=== PATIENT | female | born 1950 | race Caucasian/White ===

== ENCOUNTER 2017-08-10 10:08 | Emergency (ER) | payer MEDICARE, BC ==
[2017-08-10] MEDS ORDERED: Sodium Chloride 0.9% 10 ML Syringe FLUSH PRN (10:45)
[2017-08-10] MEDS ORDERED: Acetaminophen/HYDROcodone 325-10 MG Tab PO ONE (10:46)
[2017-08-10] MEDS ORDERED: diphenhydrAMINE 50 MG/ML SDV IVPUSH ONE (10:46)
[2017-08-10 11:16] VITALS: BP 145/69
--- NOTE | 2017-08-10 11:52 | EDM.PDOC ---
Scribed by Arlene Chen 08/10/17 1152 for Frederic Stack MD ED HPI GENERAL MEDICAL PROBLEM - General Chief Complaint: Lower Extremity Injury/Pain Stated Complaint: [id number] FOOT SWOLLEN BLISTER ON TOES Time Seen by Provider: 08/10/17 10:35 Source of Information: Reports: Patient, RN, RN Notes Reviewed History Limitations: Reports: No Limitations - History of Present Illness INITIAL COMMENTS - FREE TEXT/NARRATIVE: Patient presents from home by private vehicle with complaint of left foot pain. Patient states that she noticed a blister between the 4th and 5th toes yesterday. She is not aware of any rubbing of her shoe or any other cause for the blister. Today she noticed a red streak going from the lower leg just proximal to the ankle. Denies any fever or chills. Duration: Getting Worse Location: Reports: Lower Extremity, Left Quality: Reports: Ache Severity: Moderate Improves with: Reports: None Worsens with: Reports: None Associated Symptoms: Reports: No Other Symptoms Left Feet Pain Score (Numeric/FACES): 10 - Related Data Allergies Allergy/AdvReac Type Severity Reaction Status Date / Time propoxyphene Allergy Cannot Verified 11/30/15 01:52 Remember Home Meds: Home Meds traMADol [Ultram] 50 mg PO Q6H PRN 10/27/14 [History] Ibuprofen 600 mg PO ONETIME 11/30/15 [History] Cyanocobalamin (Vitamin B-12) [Cyanocobalamin Injection] 1 ml IM ASDIRECTED [History] Gabapentin [Neurontin] 100 mg PO TID 03/19/16 [History] Mupirocin 22 gm TOP BID 03/19/16 [History] Magnesium Chloride [Mag-64] 64 mg PO TIDMEALS #90 tab.er 03/24/16 [Rx] metroNIDAZOLE [Flagyl] 500 mg PO Q8H #30 tablet 03/24/16 [Rx] Past Medical History Respiratory History: Reports: TB Musculoskeletal History: Reports: Osteoarthritis, Osteoporosis, RA Endocrine/Metabolic History: Reports: Osteoporosis Dermatologic History: Reports: Other (See Below) Other Dermatologic History: fungal infection on feet. Small nickel size ulcer beside left outer ankle. Small blister to 4th toe on left foot. - Past Surgical History Musculoskeletal Surgical History: Reports: Shoulder Replacement, Shoulder Surgery, Other (See Below) Social & Family History - Family History Family Medical History: Noncontributory - Living Situation & Occupation Living situation: Reports: , with Spouse Occupation: Retired Review of Systems - Review of Systems Review Of Systems: ROS reveals no pertinent complaints other than HPI. ED EXAM, GENERAL - Physical Exam Exam: See Below Exam Limited By: No Limitations General Appearance: Alert, WD/WN, No Apparent Distress Head: Atraumatic, Normocephalic Respiratory/Chest: No Respiratory Distress Cardiovascular: Regular Rate, Rhythm, Tachycardia Extremities: Joint Swelling (chronic diffuse joint swelling and deformity consistent with RA), Other (Left plantar intradigital web space 4 and 5 with a 2.5cm raised purulent slightly purplish border with surrounding erythema and acute tenderness.) Neurological: Alert, No Motor/Sensory Deficits ED TRAUMA EXTREMITY PROCEDURES - I&D Site: Left plantar forefoot Skin Prep: Chlorhexidine (Hibiciens), Saline Local Anesthesia: Lidocaine: Other (none) Area Incised With: Scissors, Needle Drainage: Purulent, Moderate Amount Probed to Break Up Loculations: Yes Packed With: None Sterile Dressinx4(s) Complications: No Course - Vital Signs Last Recorded V/S: Last Vital Signs Temp 36.8 C 08/10/17 11:16 Pulse 96 08/10/17 11:16 Resp 17 08/10/17 11:16 BP 145/69 H 08/10/17 11:16 Pulse Ox 96 08/10/17 11:16 - Orders/Labs/Meds Orders: Active Orders 24 hr Category Date Time Status Peripheral IV Care [RC] . DIRECTED Care 08/10/17 10:46 Active CULTURE BLOOD [BC] Stat Lab 08/10/17 11:01 Received CULTURE WOUND + SMEAR [RM] Stat Lab 08/10/17 10:43 Results Sodium Chloride 0.9% [Saline Flush] Med 08/10/17 10:45 Active 10 ml FLUSH ASDIRECTED PRN Vancomycin 750 mg Med 08/10/17 10:47 Active Sodium Chloride 0.9% [Normal Saline] 100 ml IV ONETIME Blood Culture x2 Reflex Set [OM.PC] Stat Oth 08/10/17 10:45 Ordered Peripheral IV Insertion Adult [OM.PC] Stat Oth 08/10/17 10:45 Ordered Medication Orders Vancomycin HCl 750 mg/ Sodium (Chloride) 100 mls @ 100 mls/hr IV ONETIME ONE Stop: 08/10/17 11:46 Last Admin: 08/10/17 11:13 Dose: 100 mls/hr Sodium Chloride (Saline Flush) 10 ml FLUSH ASDIRECTED PRN PRN Reason: Keep Vein Open Last Admin: 08/10/17 10:53 Dose: 10 ml Labs: Laboratory Tests 08/10/17 08/10/17 Range/Units 11:01 11:01 WBC 9.0 (5.0-10.0) 10^3/uL RBC 3.68 L (4.2-5.4) 10^6/uL Hgb 8.7 L (12.0-16.0) g/dL Hct 27.3 L (37.0-47.0) % MCV 74.2 L D (80-100) fL MCH 23.6 L (27.0-34.0) pg MCHC 31.9 L (33.0-35.0) g/dL Plt Count 509 H D (150-450) 10^3/uL Neut % (Auto) 84.4 H (42.2-75.2) % Lymph % (Auto) 10.1 L (20.5-50.1) % [place] % (Auto) 5.2 (2-8) % Eos % (Auto) 0.0 L (1.0-3.0) % Baso % (Auto) 0.3 (0.0-1.0) % Sodium 130 L (135-145) mmol/L Potassium 4.3 (3.6-5.0) mmol/L Chloride 97 L (101-111) mmol/L Carbon Dioxide 26.0 (21.0-31.0) mmol/L Anion Gap 11.3 BUN 19 H (7-18) mg/dL Creatinine 1.1 (0.6-1.3) mg/dL Est Cr Clr Drug Dosing 35.16 mL/min Estimated GFR (MDRD) 49 BUN/Creatinine Ratio 17.27 Glucose 90 (74-105) mg/dL Calcium 8.8 (8.4-10.2) mg/dl Total Bilirubin 0.5 (0.2-1.0) mg/dL AST 45 H (10-42) IU/L ALT 36 (10-60) IU/L Alkaline Phosphatase 359 H (42-121) IU/L Total Protein 7.8 (6.7-8.2) g/dl Albumin 3.4 (3.2-5.5) g/dl Globulin 4.4 Albumin/Globulin Ratio 0.77 Meds: Medications Generic Name Dose Route Start Last Admin Trade Name Freq PRN Reason Stop Dose Admin Vancomycin HCl 750 mg/ Sodium 100 mls @ 100 mls/hr 08/10/17 10:47 08/10/17 11 :13 Chloride IV 08/10/17 11:46 100 mls/hr ONETIME ONE Administration Sodium Chloride 10 ml 08/10/17 10:45 08/10/17 10:53 Saline Flush FLUSH 10 ml ASDIRECTED PRN Administration Keep Vein Open Discontinued Medications Generic Name Dose Route Start Last Admin Trade Name Freq PRN Reason Stop Dose Admin Hydrocodone Bitart/Acetaminophen 1 tab 08/10/17 10:46 08/10/17 10:58 [place] 325-10 Mg PO 08/10/17 10:47 1 tab ONETIME ONE Administration Diphenhydramine HCl 25 mg 08/10/17 10:46 08/10/17 10:58 Benadryl IVPUSH 08/10/17 10:47 25 mg ONETIME ONE Administration Departure - Departure Time of Disposition: 11:46 Disposition: Home, Self-Care 01 Condition: Fair Clinical Impression: Infected blister of foot or toe, left, Cellulitis of left foot - Discharge Information Instructions: Cellulitis, Adult, [id number] Forms: ED Department Discharge Additional Instructions: Rx: Cipro 500mg Rx: Clindamycin 300mg Follow up in clinic in 2 to 3 days for recheck. Return to ER if you develop a fever, or are worse at any time. - My Orders Last 24 Hours: My Active Orders 08/10/17 10:43 CULTURE WOUND + SMEAR [RM] Stat 08/10/17 10:45 Sodium Chloride 0.9% [Saline Flush] 10 ml FLUSH ASDIRECTED PRN Blood Culture x2 Reflex Set [OM.PC] Stat Peripheral IV Insertion Adult [OM.PC] Stat 08/10/17 10:46 Peripheral IV Care [RC] . DIRECTED 08/10/17 10:47 Vancomycin 750 mg Sodium Chloride 0.9% [Normal Saline] 100 ml IV ONETIME 08/10/17 11:01 CULTURE BLOOD [BC] Stat - Assessment/Plan Last 24 Hours: My Active Orders 08/10/17 10:43 CULTURE WOUND + SMEAR [RM] Stat 08/10/17 10:45 Sodium Chloride 0.9% [Saline Flush] 10 ml FLUSH ASDIRECTED PRN Blood Culture x2 Reflex Set [OM.PC] Stat Peripheral IV Insertion Adult [OM.PC] Stat 08/10/17 10:46 Peripheral IV Care [RC] . DIRECTED 08/10/17 10:47 Vancomycin 750 mg Sodium Chloride 0.9% [Normal Saline] 100 ml IV ONETIME 08/10/17 11:01 CULTURE BLOOD [BC] Stat I have read and agree with the documentation that has been completed regarding this visit. By signing this record, I attest that the documentation was completed in my physical presence and is an accurate record of the encounter.
[2017-08-10] MEDS ORDERED: Bacitracin Oint 1 GM U/D Packet TOP ONE (12:23)
== END 2017-08-10 12:35 | disposition home or self-care (01) ==
LOC: DL.ED 10:08
DX: L03.116 Cellulitis of left lower limb (principal); M19.90 Unspecified osteoarthritis, unspecified site; Z79.899 Other long term (current) drug therapy; Z88.8 Allergy status to other drugs, medicaments and biological substances
CPT/HCPCS: 10060; 36415; 80053; 85025; 87040; 87070; 87077; 87186; 87205; 96365; 96375; 99283; 99284; A9270; J1200; J3370; J7050

== ENCOUNTER 2017-12-18 03:07 | Emergency (ER) | payer MEDICARE, BC ==
[2017-12-18 03:49] LABS: ANION GAP 9.8; CHLORIDE,CL 105 mmol/L (101-111); SODIUM,NA 136 mmol/L (135-145)
[2017-12-18 03:50] LABS: ACETAMINOPHEN < 10
[2017-12-18 04:21] VITALS: BP 177/70
--- NOTE | 2017-12-18 21:27 | EDM.PDOC ---
ED HPI GENERAL MEDICAL PROBLEM - General Chief Complaint: Neuro Symptoms/Deficits Stated Complaint: AMBULANCE-CONFUSION Time Seen by Provider: 12/18/17 03:10 Source of Information: Reports: EMS, Family History Limitations: Reports: Altered Mental Status - History of Present Illness INITIAL COMMENTS - FREE TEXT/NARRATIVE: ED via [facility] with report of patient confused. Spouse reports patient woke and was confused speech mumbled. Last normal initial report at 8pm to EMS then reported around 11 was last known "normal state. Ems noted bottle of Tramadol 180 filled on 12/09 with only one tablet remaining. Spouse reports use is not very often and is unsure why so many would be missing. Questioned possible ETOH use or other substances, Spouse stated has not drank for many years. Patient alert on arrival Oriented to person, place. Speech initially clear. Difficulty following simple command, Moving extremities. slow processing and vague stare. TX TO ED cart and to radiology for head CT. Onset: Today Treatments HAND DRAWER IN HELPER: Reports: IV/IO, Other (see below) Other Treatments HAND DRAWER IN HELPER: fluids - Related Data Allergies Allergy/AdvReac Type Severity Reaction Status Date / Time propoxyphene Allergy Cannot Verified 11/30/15 01:52 Remember Home Meds: Home Meds traMADol [Ultram] 50 mg PO Q6H PRN 10/27/14 [History] Ibuprofen 600 mg PO ONETIME 11/30/15 [History] Cyanocobalamin (Vitamin B-12) [Cyanocobalamin Injection] 1 ml IM ASDIRECTED [History] Gabapentin [Neurontin] 100 mg PO TID 03/19/16 [History] Mupirocin 22 gm TOP BID 03/19/16 [History] Magnesium Chloride [Mag-64] 64 mg PO TIDMEALS #90 tab.er 03/24/16 [Rx] metroNIDAZOLE [Flagyl] 500 mg PO Q8H #30 tablet 03/24/16 [Rx] Past Medical History HEENT History: Reports: Impaired Vision Respiratory History: Reports: TB Musculoskeletal History: Reports: Osteoarthritis, Osteoporosis, RA Endocrine/Metabolic History: Reports: Osteoporosis Dermatologic History: Reports: Other (See Below) Other Dermatologic History: fungal infection on feet. Small nickel size ulcer beside left outer ankle. Small blister to 4th toe on left foot. - Past Surgical History HEENT Surgical History: Reports: Adenoidectomy, Tonsillectomy Musculoskeletal Surgical History: Reports: Shoulder Replacement, Shoulder Surgery, Other (See Below) Social & Family History - Family History Family Medical History: Noncontributory - Tobacco Use Smoking Status *Q: Unknown Ever Smoked - Caffeine Use Caffeine Use: Reports: Coffee - Recreational Drug Use Recreational Drug Use: No - Living Situation & Occupation Living situation: Reports: , with Spouse Occupation: Retired ED ROS GENERAL - Review of Systems Review Of Systems: ROS reveals no pertinent complaints other than HPI. ED EXAM, NEURO - Physical Exam Exam: See Below Exam Limited By: Altered Mental Status General Appearance: Thin, Other (Alternating lert, confused periods with drowsy state arousable tith tactile stimuli) Eye Exam: Bilateral Eye: EOMI (conjugate gaze intact slow tracking no nystagmus) , PERRL (3-4 sluggish) Ears: Normal External Exam, Normal TMs Nose: Normal Inspection Throat/Mouth: Normal Inspection Head Exam: Atraumatic, Normocephalic, Sinus Tenderness Respiratory/Chest: No Respiratory Distress, Lungs Clear, Normal Breath Sounds Cardiovascular: Normal Peripheral Pulses, Regular Rate, Rhythm GI/Abdominal: Normal Bowel Sounds, Soft Neurological: No Motor/Sensory Deficits (left lower drift, sensory appears intact), Other (slow processing, difficulty following simple commands, speech clear at times, ). No: Oriented x 3 Extremities: Normal Range of Motion, No Pedal Edema Psychiatric: Other (agitated and argumentative at times with spuse who reports this as abnormal for her) Skin Exam: Warm, Dry, Intact, Normal Color Course - Vital Signs Last Recorded V/S: Last Vital Signs Temp 98.2 F 12/18/17 03:07 Pulse 70 12/18/17 03:07 Resp 15 12/18/17 03:07 BP 177/70 H 12/18/17 03:07 Pulse Ox 100 12/18/17 03:07 - Orders/Labs/Meds Orders: Active Orders 24 hr Category Date Time Status EKG Documentation Completion [RC] URGENT Care 12/18/17 03:10 Active Glucose [Blood Glucose Check, Bedside] [RC] ONETIME Care 12/18/17 03:51 Active CULTURE BLOOD [BC] Stat Lab 12/18/17 03:23 Results Labs: Laboratory Tests 12/18/17 12/18/17 12/18/17 Range/Units 03:23 03:23 03:23 WBC 7.2 (5.0-10.0) 10^3/uL RBC 4.09 L (4.2-5.4) 10^6/uL Hgb 9.6 L (12.0-16.0) g/dL Hct 30.9 L (37.0-47.0) % MCV 75.6 L (80-100) fL MCH 23.5 L (27.0-34.0) pg MCHC 31.1 L (33.0-35.0) g/dL Plt Count 346 D (150-450) 10^3/uL Neut % (Auto) 82.9 H (42.2-75.2) % Lymph % (Auto) 10.3 L (20.5-50.1) % [place] % (Auto) 6.7 (2-8) % Eos % (Auto) 0.0 L (1.0-3.0) % Baso % (Auto) 0.1 (0.0-1.0) % PT 9.4 (9.0-12.0) SEC INR 0.9 (0.9-1.2) Sodium 136 (135-145) mmol/L Potassium 3.8 (3.6-5.0) mmol/L Chloride 105 (101-111) mmol/L Carbon Dioxide 25.0 (21.0-31.0) mmol/L Anion Gap 9.8 BUN 23 H (7-18) mg/dL Creatinine 1.1 (0.6-1.3) mg/dL Est Cr Clr Drug Dosing TNP Estimated GFR (MDRD) 49 BUN/Creatinine Ratio 20.90 Glucose 112 H (74-105) mg/dL POC Glucose (70-105) mg/dl Calcium 8.7 (8.4-10.2) mg/dl Magnesium 1.8 (1.8-2.5) mg/dL Total Bilirubin 0.5 (0.2-1.0) mg/dL AST 106 H (10-42) IU/L ALT 59 (10-60) IU/L Alkaline Phosphatase 230 H (42-121) IU/L Troponin I 0.02 (0.00-0.02) ng/ml C-Reactive Protein (0.0-1.3) mg/dL Total Protein 7.9 (6.7-8.2) g/dl Albumin 3.8 (3.2-5.5) g/dl Globulin 4.1 Albumin/Globulin Ratio 0.93 TSH, Ultra Sensitive (0.45-5.33) uIu/mL Urine Color (YELLOW) Urine Appearance (CLEAR) Urine pH (5.0-9.0) Ur Specific [place] (1.005-1.030) Urine Protein (NEGATIVE) Urine Glucose (UA) (NEGATIVE) Urine Ketones (NEGATIVE) Urine Occult Blood (NEGATIVE) Urine Nitrite (NEGATIVE) Urine Bilirubin (NEGATIVE) Urine Urobilinogen (0.2-1.0) mg/dL Ur Leukocyte Esterase (NEGATIVE) Urine RBC /HPF Urine WBC (0-5/HPF) /HPF Ur Epithelial Cells /HPF Amorphous Sediment (0/HPF) /HPF Urine Bacteria (0-FEW/HPF) /HPF Urine Mucus /LPF Urine Opiates Screen (NEGATIVE) Ur Oxycodone Screen (NEGATIVE) Urine Methadone Screen (NEGATIVE) Acetaminophen < 10 Ur Barbiturates Screen (NEGATIVE) U Tricyclic Antidepress (NEGATIVE) Ur Phencyclidine Scrn (NEGATIVE) Ur Amphetamine Screen (NEGATIVE) U Methamphetamines Scrn (NEGATIVE) Urine MDMA Screen (NEGATIVE) U Benzodiazepines Scrn (NEGATIVE) Urine Cocaine Screen (NEGATIVE) U Marijuana (THC) Screen (NEGATIVE) Ethyl Alcohol mg/dL 12/18/17 12/18/17 12/18/17 Range/Units 03:23 03:23 03:52 WBC (5.0-10.0) 10^3/uL RBC (4.2-5.4) 10^6/uL Hgb (12.0-16.0) g/dL Hct (37.0-47.0) % MCV (80-100) fL MCH (27.0-34.0) pg MCHC (33.0-35.0) g/dL Plt Count (150-450) 10^3/uL Neut % (Auto) (42.2-75.2) % Lymph % (Auto) (20.5-50.1) % [place] % (Auto) (2-8) % Eos % (Auto) (1.0-3.0) % Baso % (Auto) (0.0-1.0) % PT (9.0-12.0) SEC INR (0.9-1.2) Sodium (135-145) mmol/L Potassium (3.6-5.0) mmol/L Chloride (101-111) mmol/L Carbon Dioxide (21.0-31.0) mmol/L Anion Gap BUN (7-18) mg/dL Creatinine (0.6-1.3) mg/dL Est Cr Clr Drug Dosing Estimated GFR (MDRD) BUN/Creatinine Ratio Glucose (74-105) mg/dL POC Glucose 98 (70-105) mg/dl Calcium (8.4-10.2) mg/dl Magnesium (1.8-2.5) mg/dL Total Bilirubin (0.2-1.0) mg/dL AST (10-42) IU/L ALT (10-60) IU/L Alkaline Phosphatase (42-121) IU/L Troponin I (0.00-0.02) ng/ml C-Reactive Protein 0.7 (0.0-1.3) mg/dL Total Protein (6.7-8.2) g/dl Albumin (3.2-5.5) g/dl Globulin Albumin/Globulin Ratio TSH, Ultra Sensitive 0.62 (0.45-5.33) uIu/mL Urine Color (YELLOW) Urine Appearance (CLEAR) Urine pH (5.0-9.0) Ur Specific [place] (1.005-1.030) Urine Protein (NEGATIVE) Urine Glucose (UA) (NEGATIVE) Urine Ketones (NEGATIVE) Urine Occult Blood (NEGATIVE) Urine Nitrite (NEGATIVE) Urine Bilirubin (NEGATIVE) Urine Urobilinogen (0.2-1.0) mg/dL Ur Leukocyte Esterase (NEGATIVE) Urine RBC /HPF Urine WBC (0-5/HPF) /HPF Ur Epithelial Cells /HPF Amorphous Sediment (0/HPF) /HPF Urine Bacteria (0-FEW/HPF) /HPF Urine Mucus /LPF Urine Opiates Screen (NEGATIVE) Ur Oxycodone Screen (NEGATIVE) Urine Methadone Screen (NEGATIVE) Acetaminophen Ur Barbiturates Screen (NEGATIVE) U Tricyclic Antidepress (NEGATIVE) Ur Phencyclidine Scrn (NEGATIVE) Ur Amphetamine Screen (NEGATIVE) U Methamphetamines Scrn (NEGATIVE) Urine MDMA Screen (NEGATIVE) U Benzodiazepines Scrn (NEGATIVE) Urine Cocaine Screen (NEGATIVE) U Marijuana (THC) Screen (NEGATIVE) Ethyl Alcohol < 5 mg/dL 09/19/18 09/19/18 Range/Units 04:22 04:22 WBC (5.0-10.0) 10^3/uL RBC (4.2-5.4) 10^6/uL Hgb (12.0-16.0) g/dL Hct (37.0-47.0) % MCV (80-100) fL MCH (27.0-34.0) pg MCHC (33.0-35.0) g/dL Plt Count (150-450) 10^3/uL Neut % (Auto) (42.2-75.2) % Lymph % (Auto) (20.5-50.1) % [place] % (Auto) (2-8) % Eos % (Auto) (1.0-3.0) % Baso % (Auto) (0.0-1.0) % PT (9.0-12.0) SEC INR (0.9-1.2) Sodium (135-145) mmol/L Potassium (3.6-5.0) mmol/L Chloride (101-111) mmol/L Carbon Dioxide (21.0-31.0) mmol/L Anion Gap BUN (7-18) mg/dL Creatinine (0.6-1.3) mg/dL Est Cr Clr Drug Dosing Estimated GFR (MDRD) BUN/Creatinine Ratio Glucose (74-105) mg/dL POC Glucose (70-105) mg/dl Calcium (8.4-10.2) mg/dl Magnesium (1.8-2.5) mg/dL Total Bilirubin (0.2-1.0) mg/dL AST (10-42) IU/L ALT (10-60) IU/L Alkaline Phosphatase (42-121) IU/L Troponin I (0.00-0.02) ng/ml C-Reactive Protein (0.0-1.3) mg/dL Total Protein (6.7-8.2) g/dl Albumin (3.2-5.5) g/dl Globulin Albumin/Globulin Ratio TSH, Ultra Sensitive (0.45-5.33) uIu/mL Urine Color Yellow (YELLOW) Urine Appearance Slightly cloudy (CLEAR) Urine pH 7.0 (5.0-9.0) Ur Specific [place] 1.015 (1.005-1.030) Urine Protein Negative (NEGATIVE) Urine Glucose (UA) Negative (NEGATIVE) Urine Ketones Negative (NEGATIVE) Urine Occult Blood Negative (NEGATIVE) Urine Nitrite Negative (NEGATIVE) Urine Bilirubin Negative (NEGATIVE) Urine Urobilinogen 0.2 (0.2-1.0) mg/dL Ur Leukocyte Esterase Negative (NEGATIVE) Urine RBC 0-5 /HPF Urine WBC 0-5 (0-5/HPF) /HPF Ur Epithelial Cells Few /HPF Amorphous Sediment Few (0/HPF) /HPF Urine Bacteria Rare (0-FEW/HPF) /HPF Urine Mucus Few H /LPF Urine Opiates Screen Negative (NEGATIVE) Ur Oxycodone Screen Positive H (NEGATIVE) Urine Methadone Screen Negative (NEGATIVE) Acetaminophen Ur Barbiturates Screen Negative (NEGATIVE) U Tricyclic Antidepress Negative (NEGATIVE) Ur Phencyclidine Scrn Negative (NEGATIVE) Ur Amphetamine Screen Negative (NEGATIVE) U Methamphetamines Scrn Negative (NEGATIVE) Urine MDMA Screen Negative (NEGATIVE) U Benzodiazepines Scrn Negative (NEGATIVE) Urine Cocaine Screen Negative (NEGATIVE) U Marijuana (THC) Screen Negative (NEGATIVE) Ethyl Alcohol mg/dL - Radiology Interpretation Free Text/Narrative:: Name: JUSTYN RIVERS Age: 67Years F Date: 12/18/2017 SSN: -- : [id number] Study: CT HEAD WO Requesting Physician: ESTEE DICKERSON Images: 268 Addl Studies: Provided Clinical History: increased confusion Contrast: Without Contrast Medium: Contrast Amount: Contrast Method: Page 1 of 2 Addendum created by Nubia Downs MD on 12/18/2017 3:35 AM Central Time ([place]) THIS REPORT CONTAINS FINDINGS THAT MAY BE CRITICAL TO PATIENT CARE. The findings were verbally communicated via telephone conference with ESTEE DICKERSON at 3:35 AM CDT on 12/18/2017. The findings were acknowledged and understood. Initial Report created on 12/18/2017 3:33 AM Central Time ([place]) EXAM: CT Head Without Intravenous Contrast CLINICAL HISTORY: The patient is a 67 years female; Signs and symptoms; Altered mental status/ memory loss; Confusion or disorientation; Additional info: Increased confusion TECHNIQUE: Axial computed tomography images of the head/brain without intravenous contrast. All CT scans at this facility use at least one of these dose optimization techniques: automated exposure control; mA and/or kV adjustment per patient size (includes targeted exams where dose is matched to clinical indication); or iterative reconstruction. Coronal and sagittal reformatted images were created and reviewed. COMPARISON: No relevant prior studies available. FINDINGS: BRAIN: Low attenuation within the LEFT occipital lobe (image 14, series 2). Generalized cerebral atrophy with associated prominence of the gyral sulci. Periventricular, subcortical white matter hypodensities consistent with small vessel ischemic disease. No hemorrhage. VENTRICLES: Unremarkable. No ventriculomegaly. JUSTYN RIVERS | Final Radiology Report CONFIDENTIALITY STATEMENT This report is intended only for use by the referring physician, and only in accordance with law. If you received this in error, call [phone]. Page 2 of 2 BONES/JOINTS: Unremarkable. No acute fracture. SOFT TISSUES: Unremarkable. SINUSES: Unremarkable as visualized. No acute sinusitis. MASTOID AIR CELLS: Unremarkable as visualized. No mastoid effusion. IMPRESSION: Low attenuation within the LEFT occipital lobe. Finding could represent artifact versus subacute infarct. If there is clinical suspicion for stroke or other significant clinical abnormality, further evaluation with MRI using diffusion weighted gradient sequences could be performed. Thank you for allowing us to participate in the care of your patient. Dictated and Authenticated by: Nubia Downs MD 12/18/2017 3:33 AM Central Time ([place]) - Re-Assessments/Exams Free Text/Narrative Re-Assessment/Exam: 12/18/17 23:[address] Tamara Calle accepting of patient in transfer, [place] via [facility] fixed wing. Vitals stable at transfer, Neuro status continued periods of confusion agitation, drowsiness. Motor functing appears intact. Processing slow.. Speech clear at times,. Agitated at time of arrival of flight crew. Medicated by [facility] prior to transport. Departure - Departure Time of Disposition: 04:45 Disposition: DC/Tfer to Acute Hospital 02 Condition: Undetermined Clinical Impression: Altered mental state Qualifiers: Altered mental status type: unspecified Qualified Code(s): R41.82 - Altered mental status, unspecified - Discharge Information *PRESCRIPTION DRUG MONITORING PROGRAM REVIEWED*: No Referrals: PCP,Unobtain [Primary Care Provider] - Forms: ED Department Discharge - My Orders Last 24 Hours: My Active Orders 12/18/17 03:10 EKG Documentation Completion [RC] URGENT 12/18/17 03:23 CULTURE BLOOD [BC] Stat 12/18/17 03:51 Glucose [Blood Glucose Check, Bedside] [RC] ONETIME - Assessment/Plan Last 24 Hours: My Active Orders 12/18/17 03:10 EKG Documentation Completion [RC] URGENT 12/18/17 03:23 CULTURE BLOOD [BC] Stat 12/18/17 03:51 Glucose [Blood Glucose Check, Bedside] [RC] ONETIME
== END 2017-12-18 05:06 ==
LOC: DL.ED 03:07
DX: R41.82 Altered mental status, unspecified (principal)
CPT/HCPCS: 36415; 70450; 80053; 80305-QW; 81001; 82962; 83735; 84443; 84484; 85025; 85610; 86140; 87040; 93005; 93010; 99285; G0480

== ENCOUNTER 2018-11-22 19:23 | Emergency (ER) | payer MEDICARE, BC ==
--- NOTE | 2018-11-22 19:39 | EDM.PDOC ---
ED HPI GENERAL MEDICAL PROBLEM - General Chief Complaint: Neurological Problem Stated Complaint: AMBULANCE, CRACKED TAILBONE Time Seen by Provider: 11/22/18 19:34 Source of Information: Reports: Patient, Family History Limitations: Reports: Altered Mental Status - History of Present Illness INITIAL COMMENTS - FREE TEXT/NARRATIVE: pt confused doesn't know why she is here, otherwise only answers "ok" to questions. spouse states tried to get into PMD for MRI but given schedule for next week. states pt been c/o tailbone pain and meds given from last visit are gone and hadn't really helped her much. also pt seem to be more confused at about noon time, not wanting to eat did drink something. denies pt being incontinent of urine/stools. - Related Data Allergies Allergy/AdvReac Type Severity Reaction Status Date / Time propoxyphene Allergy Cannot Verified 11/15/18 18:56 Remember Home Meds: Home Meds traMADol [Ultram] 50 mg PO Q6H PRN 10/27/14 [History] Ibuprofen 600 mg PO ONETIME 11/30/15 [History] Cyanocobalamin (Vitamin B-12) [Cyanocobalamin Injection] 1 ml IM ASDIRECTED [History] Gabapentin [Neurontin] 100 mg PO TID 03/19/16 [History] Mupirocin 22 gm TOP BID 03/19/16 [History] Magnesium Chloride [Mag-64] 64 mg PO TIDMEALS #90 tab.er 03/24/16 [Rx] metroNIDAZOLE [Flagyl] 500 mg PO Q8H #30 tablet 03/24/16 [Rx] Past Medical History HEENT History: Reports: Impaired Vision Respiratory History: Reports: TB Musculoskeletal History: Reports: Osteoarthritis, Osteoporosis, RA Endocrine/Metabolic History: Reports: Osteoporosis Dermatologic History: Reports: Other (See Below) Other Dermatologic History: fungal infection on feet. Small nickel size ulcer beside left outer ankle. Small blister to 4th toe on left foot. - Past Surgical History HEENT Surgical History: Reports: Adenoidectomy, Tonsillectomy Musculoskeletal Surgical History: Reports: Shoulder Replacement, Shoulder Surgery, Other (See Below) Other Musculoskeletal Surgeries/Procedures:: right knee replacement on June 30, 2018 Social & Family History - Family History Family Medical History: Noncontributory - Caffeine Use Caffeine Use: Reports: Coffee - Living Situation & Occupation Living situation: Reports: , with Spouse Occupation: Retired ED ROS GENERAL - Review of Systems Review Of Systems: ROS reveals no pertinent complaints other than HPI. - Physical Exam Exam: See Below Exam Limited By: No Limitations General Appearance: Other (confused) Eye Exam: Bilateral Eye: PERRL (pupils ER @ 4mm) Ears: Hearing Grossly Normal Throat/Mouth: Normal Voice, No Airway Compromise Head Exam: Atraumatic Neck: Non-Tender, Full Range of Motion Respiratory/Chest: No Respiratory Distress, No Accessory Muscle Use, Rhonchi. No: Decreased Breath Sounds Cardiovascular: Regular Rate, Rhythm GI/Abdominal: Soft, Non-Tender Neuro Exam (Abbreviated): No Motor/Sensory Deficits, Confused Back Exam: Paraspinal Tenderness, Other (LS region) Psychiatric: Flat Affect Skin Exam: Warm, Dry, Normal Color Course - Vital Signs Last Recorded V/S: Last Vital Signs Temp 37.0 C 11/22/18 21:12 Pulse 82 11/22/18 21:12 Resp 14 11/22/18 21:12 BP 175/84 H 11/22/18 21:12 Pulse Ox 100 11/22/18 21:12 - Orders/Labs/Meds Orders: Active Orders 24 hr Category Date Time Status EKG Documentation Completion [RC] STAT Care 11/22/18 19:26 Active Head wo Cont [CT] Urgent Exams 11/22/18 19:30 Taken Lumbar Spine wo Cont [CT] Urgent Exams 11/22/18 19:33 Taken Labs: Laboratory Tests 11/22/18 11/22/18 11/22/18 Range/Units 19:26 19:30 19:30 WBC 7.4 (5.0-10.0) 10^3/uL RBC 4.11 L (4.2-5.4) 10^6/uL Hgb 10.3 L (12.0-16.0) g/dL Hct 32.7 L (37.0-47.0) % MCV 79.6 L D (80-100) fL MCH 25.1 L (27.0-34.0) pg MCHC 31.5 L (33.0-35.0) g/dL Plt Count 589 H D (150-450) 10^3/uL Neut % (Auto) 74.0 (42.2-75.2) % Lymph % (Auto) 18.4 L (20.5-50.1) % [place]aston % (Auto) 4.2 (2-8) % Eos % (Auto) 3.1 H (1.0-3.0) % Baso % (Auto) 0.3 (0.0-1.0) % Sodium 139 (135-145) mmol/L Potassium 3.8 (3.6-5.0) mmol/L Chloride 107 (101-111) mmol/L Carbon Dioxide 22.0 (21.0-31.0) mmol/L Anion Gap 13.8 BUN 20 H (7-18) mg/dL Creatinine 0.8 (0.6-1.3) mg/dL Est Cr Clr Drug Dosing TNP Estimated GFR (MDRD) > 60 BUN/Creatinine Ratio 25.00 Glucose 95 (74-105) mg/dL POC Glucose 91 (83-110) mg/dl Lactic Acid (0.5-2.2) mmol/L Calcium 9.1 (8.4-10.2) mg/dl Total Bilirubin 0.5 (0.2-1.0) mg/dL AST 50 H (10-42) IU/L ALT 58 (10-60) IU/L Alkaline Phosphatase 455 H (42-121) IU/L Troponin I 0.03 H* (0.00-0.02) ng/ml Total Protein 8.3 H (6.7-8.2) g/dl Albumin 3.5 (3.2-5.5) g/dl Globulin 4.8 Albumin/Globulin Ratio 0.73 Urine Color (YELLOW) Urine Appearance (CLEAR) Urine pH (5.0-9.0) Ur Specific [place] (1.005-1.030) Urine Protein (NEGATIVE) Urine Glucose (UA) (NEGATIVE) Urine Ketones (NEGATIVE) Urine Occult Blood (NEGATIVE) Urine Nitrite (NEGATIVE) Urine Bilirubin (NEGATIVE) Urine Urobilinogen (0.2-1.0) mg/dL Ur Leukocyte Esterase (NEGATIVE) Urine RBC /HPF Urine WBC (0-5/HPF) /HPF Ur Epithelial Cells (NOT SEEN) /HPF Urine Bacteria (0-FEW/HPF) /HPF Urine Opiates Screen (NEGATIVE) Ur Oxycodone Screen (NEGATIVE) Urine Methadone Screen (NEGATIVE) Ur Barbiturates Screen (NEGATIVE) U Tricyclic Antidepress (NEGATIVE) Ur Phencyclidine Scrn (NEGATIVE) Ur Amphetamine Screen (NEGATIVE) U Methamphetamines Scrn (NEGATIVE) Urine MDMA Screen (NEGATIVE) U Benzodiazepines Scrn (NEGATIVE) Urine Cocaine Screen (NEGATIVE) U Marijuana (THC) Screen (NEGATIVE) Ethyl Alcohol mg/dL 11/22/18 11/22/18 11/22/18 Range/Units 19:30 19:30 19:36 WBC (5.0-10.0) 10^3/uL RBC (4.2-5.4) 10^6/uL Hgb (12.0-16.0) g/dL Hct (37.0-47.0) % MCV (80-100) fL MCH (27.0-34.0) pg MCHC (33.0-35.0) g/dL Plt Count (150-450) 10^3/uL Neut % (Auto) (42.2-75.2) % Lymph % (Auto) (20.5-50.1) % [place]aston % (Auto) (2-8) % Eos % (Auto) (1.0-3.0) % Baso % (Auto) (0.0-1.0) % Sodium (135-145) mmol/L Potassium (3.6-5.0) mmol/L Chloride (101-111) mmol/L Carbon Dioxide (21.0-31.0) mmol/L Anion Gap BUN (7-18) mg/dL Creatinine (0.6-1.3) mg/dL Est Cr Clr Drug Dosing Estimated GFR (MDRD) BUN/Creatinine Ratio Glucose (74-105) mg/dL POC Glucose (83-110) mg/dl Lactic Acid 1.0 (0.5-2.2) mmol/L Calcium (8.4-10.2) mg/dl Total Bilirubin (0.2-1.0) mg/dL AST (10-42) IU/L ALT (10-60) IU/L Alkaline Phosphatase (42-121) IU/L Troponin I (0.00-0.02) ng/ml Total Protein (6.7-8.2) g/dl Albumin (3.2-5.5) g/dl Globulin Albumin/Globulin Ratio Urine Color Yellow (YELLOW) Urine Appearance Clear (CLEAR) Urine pH 7.0 (5.0-9.0) Ur Specific [place] 1.015 (1.005-1.030) Urine Protein Trace H (NEGATIVE) Urine Glucose (UA) Negative (NEGATIVE) Urine Ketones Negative (NEGATIVE) Urine Occult Blood Trace-intact H (NEGATIVE) Urine Nitrite Negative (NEGATIVE) Urine Bilirubin Negative (NEGATIVE) Urine Urobilinogen 0.2 (0.2-1.0) mg/dL Ur Leukocyte Esterase Negative (NEGATIVE) Urine RBC 0-5 /HPF Urine WBC 0-5 (0-5/HPF) /HPF Ur Epithelial Cells Few (NOT SEEN) /HPF Urine Bacteria Rare (0-FEW/HPF) /HPF Urine Opiates Screen (NEGATIVE) Ur Oxycodone Screen (NEGATIVE) Urine Methadone Screen (NEGATIVE) Ur Barbiturates Screen (NEGATIVE) U Tricyclic Antidepress (NEGATIVE) Ur Phencyclidine Scrn (NEGATIVE) Ur Amphetamine Screen (NEGATIVE) U Methamphetamines Scrn (NEGATIVE) Urine MDMA Screen (NEGATIVE) U Benzodiazepines Scrn (NEGATIVE) Urine Cocaine Screen (NEGATIVE) U Marijuana (THC) Screen (NEGATIVE) Ethyl Alcohol < 5 mg/dL 11/22/18 Range/Units 19:36 WBC (5.0-10.0) 10^3/uL RBC (4.2-5.4) 10^6/uL Hgb (12.0-16.0) g/dL Hct (37.0-47.0) % MCV (80-100) fL MCH (27.0-34.0) pg MCHC (33.0-35.0) g/dL Plt Count (150-450) 10^3/uL Neut % (Auto) (42.2-75.2) % Lymph % (Auto) (20.5-50.1) % Gaston % (Auto) (2-8) % Eos % (Auto) (1.0-3.0) % Baso % (Auto) (0.0-1.0) % Sodium (135-145) mmol/L Potassium (3.6-5.0) mmol/L Chloride (101-111) mmol/L Carbon Dioxide (21.0-31.0) mmol/L Anion Gap BUN (7-18) mg/dL Creatinine (0.6-1.3) mg/dL Est Cr Clr Drug Dosing Estimated GFR (MDRD) BUN/Creatinine Ratio Glucose (74-105) mg/dL POC Glucose (83-110) mg/dl Lactic Acid (0.5-2.2) mmol/L Calcium (8.4-10.2) mg/dl Total Bilirubin (0.2-1.0) mg/dL AST (10-42) IU/L ALT (10-60) IU/L Alkaline Phosphatase (42-121) IU/L Troponin I (0.00-0.02) ng/ml Total Protein (6.7-8.2) g/dl Albumin (3.2-5.5) g/dl Globulin Albumin/Globulin Ratio Urine Color (YELLOW) Urine Appearance (CLEAR) Urine pH (5.0-9.0) Ur Specific [place] (1.005-1.030) Urine Protein (NEGATIVE) Urine Glucose (UA) (NEGATIVE) Urine Ketones (NEGATIVE) Urine Occult Blood (NEGATIVE) Urine Nitrite (NEGATIVE) Urine Bilirubin (NEGATIVE) Urine Urobilinogen (0.2-1.0) mg/dL Ur Leukocyte Esterase (NEGATIVE) Urine RBC /HPF Urine WBC (0-5/HPF) /HPF Ur Epithelial Cells (NOT SEEN) /HPF Urine Bacteria (0-FEW/HPF) /HPF Urine Opiates Screen Negative (NEGATIVE) Ur Oxycodone Screen Negative (NEGATIVE) Urine Methadone Screen Negative (NEGATIVE) Ur Barbiturates Screen Negative (NEGATIVE) U Tricyclic Antidepress Negative (NEGATIVE) Ur Phencyclidine Scrn Negative (NEGATIVE) Ur Amphetamine Screen Negative (NEGATIVE) U Methamphetamines Scrn Negative (NEGATIVE) Urine MDMA Screen Negative (NEGATIVE) U Benzodiazepines Scrn Negative (NEGATIVE) Urine Cocaine Screen Negative (NEGATIVE) U Marijuana (THC) Screen Negative (NEGATIVE) Ethyl Alcohol mg/dL - Re-Assessments/Exams Free Text/Narrative Re-Assessment/Exam: 11/22/18 21:[address] Murry @ who kindly accepted pt. Departure - Departure Time of Disposition: 21:18 Disposition: DC/Tfer to Acute Hospital 02 Condition: Fair Clinical Impression: Elevated troponin, Degenerative lumbar spinal stenosis Altered mental state Qualifiers: Altered mental status type: unspecified Qualified Code(s): R41.82 - Altered mental status, unspecified Subluxation of coccyx Qualifiers: Encounter type: subsequent encounter Qualified Code(s): S33.2XXD - Dislocation of sacroiliac and sacrococcygeal joint, subsequent encounter - Discharge Information Forms: Interfacility Transfer EMTALA - My Orders Last 24 Hours: My Active Orders 11/22/18 19:26 EKG Documentation Completion [RC] STAT 11/22/18 19:30 Head wo Cont [CT] Urgent 11/22/18 19:33 Lumbar Spine wo Cont [CT] Urgent - Assessment/Plan Last 24 Hours: My Active Orders 11/22/18 19:26 EKG Documentation Completion [RC] STAT 11/22/18 19:30 Head wo Cont [CT] Urgent 11/22/18 19:33 Lumbar Spine wo Cont [CT] Urgent
[2018-11-22 20:00] LABS: ANION GAP 13.8; CHLORIDE,CL 107 mmol/L (101-111); SODIUM,NA 139 mmol/L (135-145)
[2018-11-22 21:13] VITALS: BP 175/84
== END 2018-11-22 22:02 ==
LOC: DL.ED 19:23
DX: S33.2XXD Dislocation of sacroiliac and sacrococcygeal joint, subsequent encounter (principal); M48.061 Spinal stenosis, lumbar region without neurogenic claudication; R41.82 Altered mental status, unspecified; R79.89 Other specified abnormal findings of blood chemistry; Z88.8 Allergy status to other drugs, medicaments and biological substances; Z79.899 Other long term (current) drug therapy; X58.XXXD Exposure to other specified factors, subsequent encounter
CPT/HCPCS: 36415; 70450; 72131; 80053; 80305; 81001; 82962; 83605; 84484; 85025; 93005; 99285; G0480

== ENCOUNTER 2020-08-24 12:12 | Emergency (ER) | payer MEDICARE, BC ==
[2020-08-24 12:45] VITALS: BP 177/78; PULSE 92
[2020-08-24] MEDS ORDERED: HYDROmorphone 0.5 MG/0.5 ML Syringe IVPUSH ONE (12:58)
--- NOTE | 2020-08-24 13:22 | EDM.PDOC ---
ED HPI GENERAL MEDICAL PROBLEM - General Chief Complaint: Abdominal Pain Stated Complaint: BAD STOMACH PAINS Time Seen by Provider: 08/24/20 12:50 Source of Information: Reports: Patient History Limitations: Reports: No Limitations - History of Present Illness INITIAL COMMENTS - FREE TEXT/NARRATIVE: This 69 yo female patient reports to the ED with increased abdominal pain. The patient reports she has been working with Dr. Evans due to chronic stomach pain, but today her pain has gotten too much for her to handle. The patient reports she did call Dr. Evans's office, but there were no appointments available until 1330 today. The patient reports her pain is so bad that she could not wait until the appointment. The patient also has a history of chronic lower back pain that she needs to have surgery for. Onset: Today Duration: Constant, Getting Worse Location: Reports: Abdomen Quality: Reports: Ache, Pressure Severity: Severe Improves with: Reports: None Worsens with: Reports: None Context: Reports: Other Associated Symptoms: Reports: No Other Symptoms Bilateral Lower Abdomen Pain Score (Numeric/FACES): 10 - Related Data Allergies Allergy/AdvReac Type Severity Reaction Status Date / Time propoxyphene Allergy Unknown Cannot Verified 08/24/20 12:36 Remember cetirizine Allergy UNKNOWN Verified 08/24/20 12:36 ketorolac [From Toradol] AdvReac Headache Verified 08/24/20 12:36 Home Meds: Home Meds traMADol [Ultram] 50 mg PO Q6H PRN 10/27/14 [History] Ibuprofen 600 mg PO ONETIME 11/30/15 [History] Cyanocobalamin (Vitamin B-12) [Cyanocobalamin Injection] 1 ml IM ASDIRECTED 03/19/16 [History] Gabapentin [Neurontin] 100 mg PO TID 03/19/16 [History] Mupirocin 22 gm TOP BID 03/19/16 [History] Magnesium Chloride [Mag-64] 64 mg PO TIDMEALS #90 tab.er 03/24/16 [Rx] metroNIDAZOLE [Flagyl] 500 mg PO Q8H #30 tablet 03/24/16 [Rx] Past Medical History HEENT History: Reports: Impaired Vision Cardiovascular History: Reports: None Respiratory History: Reports: TB Musculoskeletal History: Reports: Osteoarthritis, Osteoporosis, RA Other Musculoskeletal History: Pt reports history of "crushed vertebrae". Psychiatric History: Reports: None Endocrine/Metabolic History: Reports: Osteoporosis Hematologic History: Reports: None Immunologic History: Reports: None Oncologic (Cancer) History: Reports: None Dermatologic History: Reports: Other (See Below) Other Dermatologic History: fungal infection on feet. Small nickel size ulcer beside left outer ankle. Small blister to 4th toe on left foot. - Infectious Disease History Infectious Disease History: Reports: None - Past Surgical History HEENT Surgical History: Reports: Adenoidectomy, Tonsillectomy Musculoskeletal Surgical History: Reports: Shoulder Replacement, Shoulder Surgery, Other (See Below) Other Musculoskeletal Surgeries/Procedures:: right knee replacement on June 30, 2018 Social & Family History - Family History Family Medical History: No Pertinent Family History - Tobacco Use Tobacco Use Status *Q: Current Every Day Tobacco User Years of Tobacco use: 55 Packs/Tins Daily: 1 - Caffeine Use Caffeine Use: Reports: Coffee Other Caffeine Use: Up to "4 pots of coffee" daily. - Recreational Drug Use Recreational Drug Use: No - Living Situation & Occupation Living situation: Reports: , with Spouse Occupation: Retired ED ROS GENERAL - Review of Systems Review Of Systems: Comprehensive ROS is negative, except as noted in HPI. ED EXAM, GI/ABD - Physical Exam Exam: See Below Exam Limited By: No Limitations General Appearance: Alert, WD/WN, Severe Distress, Thin Eyes: Bilateral: Normal Appearance, EOMI Ears: Normal External Exam, Normal Canal, Hearing Grossly Normal, Normal TMs Nose: Normal Inspection, Normal Mucosa, No Blood Throat/Mouth: Normal Inspection, Normal Lips, Normal Teeth, Normal Gums, Normal Oropharynx, Normal Voice, No Airway Compromise Head: Atraumatic, Normocephalic Neck: Normal Inspection, Supple, Non-Tender, Full Range of Motion Respiratory/Chest: No Respiratory Distress, Lungs Clear, Normal Breath Sounds, No Accessory Muscle Use, Chest Non-Tender Cardiovascular: Normal Peripheral Pulses, Regular Rate, Rhythm, No Edema, No Gallop, No JVD, No Murmur, No Rub GI/Abdominal Exam: Normal Bowel Sounds, Rigid, Tender (generalized) (Female) Exam: Deferred Rectal (Female) Exam: Deferred Back Exam: Normal Inspection, Full Range of Motion, NT Extremities: Normal Inspection, Normal Range of Motion, Non-Tender, Normal Capillary Refill, No Pedal Edema Neurological: Alert, Oriented, CN II-XII Intact, Normal Cognition, Abnormal Gait Psychiatric: Normal Affect, Normal Mood Skin Exam: Warm, Dry, Intact, Normal Color, No Rash Lymphatic: No Adenopathy Course - Vital Signs Last Recorded V/S: Last Vital Signs Temp 99.6 F 08/24/20 12:37 Pulse 92 08/24/20 12:37 Resp 20 08/24/20 12:37 BP 177/78 H 08/24/20 12:37 Pulse Ox 100 08/24/20 12:37 - Orders/Labs/Meds Orders: Active Orders 24 hr Category Date Time Status CULTURE BLOOD [BC] Stat Lab 08/24/20 12:35 Results Labs: Laboratory Tests 08/24/20 08/24/20 08/24/20 Range/Units 12:35 12:35 12:35 WBC 7.3 (5.0-10.0) 10^3/uL RBC 3.67 L (4.2-5.4) 10^6/uL Hgb 10.8 L (12.0-16.0) g/dL Hct 33.1 L (37.0-47.0) % MCV 90.2 D (80-100) fL MCH 29.4 (27.0-34.0) pg MCHC 32.6 L (33.0-35.0) g/dL Plt Count 492 H D (150-450) 10^3/uL Neut % (Auto) 70.8 (42.2-75.2) % Lymph % (Auto) 23.7 (20.5-50.1) % [place] % (Auto) 2.9 (2-8) % Eos % (Auto) 2.3 (1.0-3.0) % Baso % (Auto) 0.3 (0.0-1.0) % Sodium 128 L (136-145) mmol/L Potassium 4.1 (3.5-5.1) mmol/L Chloride 93 L (98-107) mmol/L Carbon Dioxide 21 (21-32) mmol/L Anion Gap 18.1 H (7-13) mEq/L BUN 16 (7-18) mg/dL Creatinine 0.76 (0.55-1.02) mg/dL Est Cr Clr Drug Dosing 45.70 mL/min Estimated GFR (MDRD) > 60 BUN/Creatinine Ratio 21.1 (No establ ref range) Glucose 98 (70-99) mg/dL Lactic Acid 0.9 (0.4-2.0) mmol/L Calcium 8.3 L (8.5-10.1) mg/dL Total Bilirubin 0.4 (0.2-1.0) mg/dL AST 77 H (15-37) U/L ALT 96 H (14-59) U/L Alkaline Phosphatase 407 H (46-116) U/L Total Protein 8.2 (6.4-8.2) g/dL Albumin 3.3 L (3.4-5.0) g/dL Globulin 4.9 Albumin/Globulin Ratio 0.67 Amylase 83 (25-115) U/L Lipase 116 (73-393) U/L Urine Color (YELLOW) Urine Appearance (CLEAR) Urine pH (5.0-9.0) Ur Specific [place] (1.005-1.030) Urine Protein (NEGATIVE) Urine Glucose (UA) (NEGATIVE) Urine Ketones (NEGATIVE) Urine Occult Blood (NEGATIVE) Urine Nitrite (NEGATIVE) Urine Bilirubin (NEGATIVE) Urine Urobilinogen (0.2-1.0) mg/dL Ur Leukocyte Esterase (NEGATIVE) Urine RBC /HPF Urine WBC (0-5/HPF) /HPF Ur Epithelial Cells (NOT SEEN) /HPF Urine Bacteria (0-FEW/HPF) /HPF // Range/Units 12:45 WBC (5.0-10.0) 10^3/uL RBC (4.2-5.4) 10^6/uL Hgb (12.0-16.0) g/dL Hct (37.0-47.0) % MCV (80-100) fL MCH (27.0-34.0) pg MCHC (33.0-35.0) g/dL Plt Count (150-450) 10^3/uL Neut % (Auto) (42.2-75.2) % Lymph % (Auto) (20.5-50.1) % [place] % (Auto) (2-8) % Eos % (Auto) (1.0-3.0) % Baso % (Auto) (0.0-1.0) % Sodium (136-145) mmol/L Potassium (3.5-5.1) mmol/L Chloride (98-107) mmol/L Carbon Dioxide (21-32) mmol/L Anion Gap (7-13) mEq/L BUN (7-18) mg/dL Creatinine (0.55-1.02) mg/dL Est Cr Clr Drug Dosing mL/min Estimated GFR (MDRD) BUN/Creatinine Ratio (No establ ref range) Glucose (70-99) mg/dL Lactic Acid (0.4-2.0) mmol/L Calcium (8.5-10.1) mg/dL Total Bilirubin (0.2-1.0) mg/dL AST (15-37) U/L ALT (14-59) U/L Alkaline Phosphatase (46-116) U/L Total Protein (6.4-8.2) g/dL Albumin (3.4-5.0) g/dL Globulin Albumin/Globulin Ratio Amylase (25-115) U/L Lipase (73-393) U/L Urine Color Yellow (YELLOW) Urine Appearance Clear (CLEAR) Urine pH 7.0 (5.0-9.0) Ur Specific [place] 1.020 (1.005-1.030) Urine Protein 30 H (NEGATIVE) Urine Glucose (UA) Negative (NEGATIVE) Urine Ketones Negative (NEGATIVE) Urine Occult Blood Trace-intact H (NEGATIVE) Urine Nitrite Negative (NEGATIVE) Urine Bilirubin Negative (NEGATIVE) Urine Urobilinogen 0.2 (0.2-1.0) mg/dL Ur Leukocyte Esterase Negative (NEGATIVE) Urine RBC 0-5 /HPF Urine WBC 0-5 (0-5/HPF) /HPF Ur Epithelial Cells Few (NOT SEEN) /HPF Urine Bacteria Moderate H (0-FEW/HPF) /HPF Meds: Medications Discontinued Medications Generic Name Dose Route Start Last Admin Trade Name Freq PRN Reason Stop Dose Admin Hydromorphone HCl 0.5 mg 08/24/20 12:58 08/24/20 13:11 Hydromorphone 0.5 Mg/0.5 Ml Syringe IVPUSH 08/24/20 12:59 0.5 mg ONETIME ONE Administration Iopamidol 100 ml 08/24/20 13:46 08/24/20 14:20 Iopamidol 612 Mg/Ml 100 Ml Bottle IVPUSH 08/24/20 13:47 75 ml ONETIME ONE Administration - Re-Assessments/Exams Free Text/Narrative Re-Assessment/Exam: 08/24/20 13:47 The patient reports her pain in her abdomen is down to a 4/10. A CT of the abdomen/pelvis with contrast was ordered. Departure - Departure Time of Disposition: 16:20 Disposition: Home, Self-Care 01 Condition: Fair Clinical Impression: Pain, abdominal, nonspecific - Discharge Information *PRESCRIPTION DRUG MONITORING PROGRAM REVIEWED*: Not Applicable *COPY OF PRESCRIPTION DRUG MONITORING REPORT IN PATIENT CONCEPCION: Not Applicable Instructions: Abdominal Pain, Adult, [id number] Forms: ED Department Discharge Care Plan Goals: The patient was advised of the examination, lab and CT results during the visit. The patient was given a dose of pain medication in her IV while in the ED. The patient was discharged with a script for Ian () #2 to take 1 by mouth every 6 hours as needed for pain. The patient was encouraged to walk around her home to keep her bowels moving. If the patient has any additional symptoms or concerns, the patient should either return to the emergency department or visit her primary care facility. Sepsis Event Note (ED) - Evaluation Sepsis Screening Result: No Definite Risk - Focused Exam Vital Signs: Vital Signs Temp Pulse Resp BP Pulse Ox 08/24/20 12:37 99.6 F 92 20 177/78 H 100 - My Orders Last 24 Hours: My Active Orders 08/24/20 12:35 CULTURE BLOOD [BC] Stat - Assessment/Plan Last 24 Hours: My Active Orders 08/24/20 12:35 CULTURE BLOOD [BC] Stat
[2020-08-24 13:25] LABS: ANION GAP 18.1 mEq/L (7-13); CHLORIDE,CL 93 mmol/L (98-107); SODIUM,NA 128 mmol/L (136-145)
[2020-08-24] MEDS ORDERED: Iopamidol 612 MG/ML 100 ML Bottle IVPUSH ONE (13:46)
--- NOTE | 2020-08-24 16:13 | CT ---
EXAMINATION: Abdomen Pelvis w Cont SEX: Female AGE: 69 years CLINICAL HISTORY: 69-year-old hypertensive 93 pound female smoker with abdominal pain who was reported on previous CT scan abdomen 15 Aug 2020 (unintentional weight loss) to have "dilated esophagus and diverticulosis". Scan technique: Volume acquisition of data from the abdomen and pelvis obtained without oral contrast but during the intravenous ministration 75 cc nonionic Isovue contrast 3 cc/s via injector while patient was lying supine on the Siemens multislice scanner [place], [place]. All data archived in the PACS system for storage, reformatting axial/sagittal/coronal planes and study. Interpretation: 1. Mild cardiomegaly. No pericardial effusion, vascular congestion or pleural effusions. Lung bases clear. 2. *Dilated distal esophagus with prominent air-fluid level. 3. Levorotoscoliosis, osteoporosis and multilevel lower thoracic and mid/lower lumbar disc disease (compression L5). 4. Gallbladder distended RUQ. No gallstones. Liver, stomach, spleen, pancreas and adrenal glands unremarkable. 5. Irregular cortical surface but normal reniform size, axis and configuration. No cystic or solid renal cortical mass lesion, nephrolithiasis or signs of obstructive uropathy. 6. Numerous diverticula distal descending left and sigmoid colon without current signs of associated inflammation. 7. Atheromatous calcification scattered along the course of normal caliber abdominal aorta. No aneurysm or dissection. 8. No new abdominal or pelvic mass lesion. No mesenteric or retroperitoneal lymphadenopathy. No sign of mechanical bowel obstruction, ascites or free intraperitoneal air. CONCLUSION: No sign of abdominal malignancy, bowel obstruction, or acute peritonitis. Sigmoid diverticulosis. Abnormally dilated distal esophagus.
== END 2020-08-24 16:42 | disposition home or self-care (01) ==
LOC: DL.ED 12:12
DX: R10.31 Right lower quadrant pain (principal); R10.32 Left lower quadrant pain; R10.84 Generalized abdominal pain; Z72.0 Tobacco use; Z88.8 Allergy status to other drugs, medicaments and biological substances; Z88.5 Allergy status to narcotic agent; Z79.899 Other long term (current) drug therapy
CPT/HCPCS: 36415; 74177; 80053; 81001; 82150; 83605; 83690; 85025; 87040; 96374; 99284; J1170; Q9967

== ENCOUNTER 2020-12-23 09:44 | Inpatient (IN) | payer MEDICARE, BC ==
[2020-12-23] MEDS ORDERED: DOXYLAMINE SUCCINATE 25 MG PO PRN (11:12)
--- NOTE | 2020-12-23 11:14 | PCM.HP ---
H&P History of Present Illness - General Date of Service: 12/23/20 Admit Problem/Dx: Rehabilitation Source of Information: Patient, Old Records History Limitations: Reports: Physical Impairment - History of Present Illness Initial Comments - Free Text/Narative: This is a 70-year-old elderly white female with past medical history of hypertension, cardiac murmur, nonrheumatic heart aortic valve stenosis, history of pericarditis, anemia of chronic disease, diverticulosis status post colonoscopy in July of 2019, GERD, history of esophagitis status post EGD in 2019, history of hyponatremia, DJD, lumbar stenosis with neurogenic claudication, spondylolisthesis at L4-L5 level, rheumatoid arthritis, oste oporosis, left rotator cuff arthropathy, remote history of TB infection, vitamin D deficiency, and polyarthritis who comes to us from home after failing outpatient treatment. Patient was initially hospitalized in [facility] after undergoing L4-L5 lumbar fusion on 12/06/2020 and was discharged on 12/13/2020 with home health. Unfortunately she did not do well at home with outpatient treatment. She had difficulty performing her activities of daily living. As a result, she comes to us for further treatment and deconditioning. Currently, she denies having fever or chills. However she feels cold. No lightheadedness or dizziness. No signs of upper respiratory infection. No chest pain or shortness of breath. No GI or complaints. Her last bowel movement was yesterday. She last voided a few hours before she came to the hospital. She is eating and drinking fine. She denies any numbness or tingling of her lower extremities. Her incision site remains intact and clean. Right now she rates her pain as moderate. She is on Neurontin 400 mg p.o. 3 times daily and 5 mg p.o. every 6 as needed for pain management. Her CODE STATUS is DNR/DNI. Lower Back Pain Score (Numeric/FACES): 4 - Related Data Allergies/Adverse Reactions: Allergies Allergy/AdvReac Type Severity Reaction Status Date / Time propoxyphene Allergy Unknown Cannot Verified 08/24/20 12:36 Remember cetirizine Allergy UNKNOWN Verified 08/24/20 12:36 ketorolac [From Toradol] AdvReac Headache Verified 08/24/20 12:36 Home Medications: Home Meds Cyanocobalamin (Vitamin B-12) [Cyanocobalamin Injection] 1 ml IM ASDIRECTED 03/19/16 [History] Acetaminophen [Tylenol Arthritis] 650 mg PO Q6H PRN 12/22/20 [History] Albuterol Sulfate [Albuterol Sulfate HFA] 2 puff INH Q4H PRN 12/22/20 [History] Doxylamine Succinate [Unisom] 25 mg PO BEDTIME PRN 12/22/20 [History] Gabapentin [Neurontin] 400 mg PO TID 12/22/20 [History] Omeprazole 20 mg PO DAILY 12/22/20 [History] Venlafaxine HCl [Venlafaxine ER] 75 mg PO DAILY 12/22/20 [History] amLODIPine [Norvasc] 5 mg PO DAILY 12/22/20 [History] diphenhydrAMINE [Benadryl] 25 mg PO DAILY PRN 12/22/20 [History] oxyCODONE 5 mg PO Q6H PRN 12/22/20 [History] Past Medical History HEENT History: Reports: Impaired Vision Cardiovascular History: Reports: Hypertension Respiratory History: Reports: TB Gastrointestinal History: Reports: GER[employer] History: Reports: None Other OB/BYN History: 7 vaginal deliveries Musculoskeletal History: Reports: Arthritis, Back Pain, Chronic, Osteoarthritis, Osteoporosis, RA Other Musculoskeletal History: Pt reports history of "crushed vertebrae". Psychiatric History: Reports: Depression Endocrine/Metabolic History: Reports: Osteoporosis Hematologic History: Reports: B12 Deficiency Immunologic History: Reports: None Oncologic (Cancer) History: Reports: None Dermatologic History: Reports: Psoriasis, Other (See Below) Other Dermatologic History: fungal infection on feet. Small nickel size ulcer beside left outer ankle. Small blister to 4th toe on left foot. - Infectious Disease History Infectious Disease History: Reports: TB - Past Surgical History HEENT Surgical History: Reports: Adenoidectomy, Tonsillectomy GI Surgical History: Reports: Colonoscopy, EGD Other GI Surgeries/Procedures: patient states it was quite awhile ago. Musculoskeletal Surgical History: Reports: Joint Replacement, Knee Replacement, Shoulder Replacement, Shoulder Surgery, Other (See Below) Other Musculoskeletal Surgeries/Procedures:: right knee replacement on June 30, 2018 Social & Family History - Family History Family Medical History: No Pertinent Family History HEENT: Reports: Cataract - Caffeine Use Caffeine Use: Reports: Coffee Other Caffeine Use: Up to "4 pots of coffee" daily. - Living Situation & Occupation Living situation: Reports: , with Spouse Occupation: Retired H&P Review of Systems - Review of Systems: Review Of Systems: See Below General: Reports: Weakness. Denies: Fever, Chills, Malaise, Fatigue HEENT: Denies: Contact Lenses, Sore Throat, Vertigo, Visual Changes Pulmonary: Denies: Shortness of Breath, Pleuritic Chest Pain, Cough, Sputum Cardiovascular: Denies: Chest Pain, Dyspnea on Exertion, Orthopnea, Lightheadedness, Syncope, Claudication, Blood Pressure Problem Gastrointestinal: Reports: Flatus. Denies: Abdominal Pain, Constipation, Diarrhea, Decreased Appetite, Difficulty Swallowing, Nausea, Vomiting Genitourinary: Denies: Frequency, Urgency, Incontinence, Retention Musculoskeletal: Reports: Back Pain, Other. Denies: Neck Pain, Leg Pain, Muscle Stiffness Skin: Reports: Other (arthritic hands). Denies: Jaundice, Dryness, Bruising, Pruritis, Erythema Neurological: Reports: Difficulty Walking, Weakness, Gait Disturbance. Denies: Dizziness, Numbness, Paresthesia, Seizure, Tingling, Tremors, Trouble Speaking, Change in Speech Hematologic/Lymphatic: Reports: No Symptoms Immunologic: Reports: No Symptoms Exam - Exam Exam: See Below - Exam Quality Assessment: DVT Prophylaxis. No: Supplemental Oxygen General: Alert, Oriented, Cooperative, Mild Distress HEENT: Conjunctiva Clear, EACs Clear, EOMI, Hearing Intact, Nares Patent, Normal Nasal Septum, Posterior Pharynx Clear, Pupils Equal, Pupils Reactive Neck: Supple, Trachea Midline Lungs: Clear to Auscultation, Normal Respiratory Effort Cardiovascular: Regular Rate, Regular Rhythm, Systolic Murmur GI/Abdominal Exam: Normal Bowel Sounds, Soft, Non-Tender, No Organomegaly, No Distention, No Abnormal Bruit (Female) Exam: Deferred Rectal (Female) Exam: Deferred Back Exam: Normal Inspection, Decreased Range of Motion, Paraspinal Tenderness, Vertebral Tenderness Extremities: Normal Inspection, Non-Tender, No Pedal Edema, Normal Capillary Refill, Limited Range of Motion, Other (Disfigured bilateral hands due to longstanding rheumatoid arthritis) Peripheral Pulses: 0: Dorsalis Pedis (R), 2+: Dorsalis Pedis (L) Skin: Warm, Dry Skin Alteration Location (Drawings Not To Scale): 1 - Spinal incision appears to be drying, clean, and intact Neuro Extensive - Mental Status: Oriented x3, Normal Cognition, Memory Intact Neuro Extensive - Motor, Sensory, Reflexes: CN II-XII Intact, Abnormal Gait Psychiatric: Alert, Normal Affect, Normal Mood Problem List Initiated/Reviewed/Updated: Yes Orders Last 24hrs: Active Orders 24 hr Category Date Time Status Acetaminophen [Tylenol Arthritis] Med 12/23/20 11:12 Ordered 650 mg PO Q6H PRN Albuterol Sulfate Med 12/23/20 11:12 Ordered 2 puff INH Q4H PRN Doxylamine Succinate [Unisom] Med 12/23/20 11:12 Ordered 25 mg PO BEDTIME PRN Gabapentin [Neurontin] Med 12/23/20 14:00 Ordered 400 mg PO TID Omeprazole [Omeprazole] Med 12/24/20 09:00 Ordered 20 mg PO DAILY Venlafaxine HCl [Venlafaxine ER] Med 12/24/20 09:00 Ordered 75 mg PO DAILY amLODIPine [Norvasc] Med 12/24/20 09:00 Ordered 5 mg PO DAILY diphenhydrAMINE [Benadryl] Med 12/23/20 11:12 Ordered 25 mg PO DAILY PRN oxyCODONE Med 12/23/20 11:12 Ordered 5 mg PO Q6H PRN Assessment/Plan Comment:: This is a 70-year-old elderly white female with past medical history of hypertension, cardiac murmur, nonrheumatic heart aortic valve stenosis, history of pericarditis, anemia of chronic disease, diverticulosis status post colonoscopy in July of 2019, GERD, history of esophagitis status post EGD in 2019, history of hyponatremia, DJD, lumbar stenosis with neurogenic claudication, spondylolisthesis at L4-L5 level, rheumatoid arthritis, osteoporosis, left rotator cuff arthropathy, history of TB infection, vitamin D deficiency, and polyarthritis who comes to us from home after failing outpatient treatment. Assessment: Acute: Acute back pain failed outpatient treatment Lumbar stenosis with neurogenic claudication Spondylolisthesis at L4-L5 level status post spinal fusion Degenerative joint disease Polyarthritis Osteoporosis Vitamin D deficiency Rheumatoid arthritis Chronic: Hypertension, cardiac murmur, nonrheumatic heart aortic valve stenosis, history of pericarditis, anemia of chronic disease, diverticulosis status post colonoscopy in July of 2019, GERD, history of esophagitis status post EGD in 2019, history of hyponatremia, left rotator cuff arthropathy, and history of TB infection Plan: Admit to rehab Resume home meds Vitamin D and thyroid panel PT/OT to assess and treat Nutritional medicine consult Continue with home dose Neurontin and short acting as needed oxycodone with holding parameters Will initiate long-acting oxycodone every 12 hours with holding parameters Follow precautions Resume home meds once verified Regular diet Stool softener to prevent opioid induced constipation SCDs for DVT prophylaxis Rehab potential: Excellent Discharge plan: At least near prior level of function CODE STATUS is DNR/DNI
[2020-12-23] MEDS ORDERED: Albuterol 6.7 GM Inhaler INH PRN (11:31)
[2020-12-23] MEDS ORDERED: Bisacodyl 5 MG Tab PO PRN (12:03)
[2020-12-23] MEDS ORDERED: Ondansetron 4 MG/2 ML SDV IVPUSH PRN (12:03)
[2020-12-23] MEDS ORDERED: Albuterol/Ipratropium 3.0-0.5 MG/3 ML Neb Soln NEB PRN (12:03)
[2020-12-23] MEDS: oxyCODONE 5 MG Tab PO PRN ×2 (12:09→19:23)
[2020-12-23] MEDS: Acetaminophen 325 MG Tab PO PRN (13:00)
[2020-12-23] MEDS: Gabapentin 400 MG Cap PO SCH ×2 (13:25→20:45)
[2020-12-23] MEDS: HYDROmorphone 0.5 MG/0.5 ML Syringe IVPUSH PRN ×2 (16:45→22:01)
[2020-12-23] MEDS: oxyCODONE ER 10 MG TAB.ER PO SCH (20:47)
[2020-12-24] MEDS: HYDROmorphone 0.5 MG/0.5 ML Syringe IVPUSH PRN ×2 (00:14→06:51)
[2020-12-24] MEDS: oxyCODONE 5 MG Tab PO PRN ×2 (04:08→14:41)
[2020-12-24] MEDS: Omeprazole 20 MG Cap.CR PO SCH (06:24)
--- NOTE | 2020-12-24 07:11 | PCM.SN.2 ---
- Free Text/Narrative Note: Vitamin D and TSH levers were low. FT4 level is pending. We will start today with oral Vit D supplement. Time Documentation
[2020-12-24] MEDS: Venlafaxine 37.5 MG Cap.ER PO SCH (08:36)
[2020-12-24] MEDS: Gabapentin 400 MG Cap PO SCH ×3 (08:36→20:17)
[2020-12-24] MEDS: amLODIPine 5 MG Tab PO SCH (08:36)
[2020-12-24] MEDS: oxyCODONE ER 10 MG TAB.ER PO SCH ×2 (08:37→20:16)
[2020-12-24] MEDS: Acetaminophen 325 MG Tab PO PRN (11:32)
[2020-12-24] MEDS: Ergocalciferol (Vitamin D2) 1.25 MG Cap PO SCH (11:42)
[2020-12-25] MEDS: HYDROmorphone 0.5 MG/0.5 ML Syringe IVPUSH PRN (00:42)
[2020-12-25] MEDS: Acetaminophen 325 MG Tab PO PRN ×3 (02:34→17:43)
[2020-12-25] MEDS: Omeprazole 20 MG Cap.CR PO SCH (05:14)
[2020-12-25] MEDS: oxyCODONE ER 10 MG TAB.ER PO SCH ×2 (08:22→21:03)
[2020-12-25] MEDS: Gabapentin 400 MG Cap PO SCH ×3 (08:22→21:04)
[2020-12-25] MEDS: Venlafaxine 37.5 MG Cap.ER PO SCH (08:22)
[2020-12-25] MEDS: amLODIPine 5 MG Tab PO SCH (08:23)
[2020-12-25] MEDS: oxyCODONE 5 MG Tab PO PRN (13:34)
[2020-12-25] MEDS: diphenhydrAMINE 25 MG Tab PO PRN (21:58)
[2020-12-26] MEDS: Acetaminophen 325 MG Tab PO PRN ×3 (02:03→17:54)
[2020-12-26] MEDS: Omeprazole 20 MG Cap.CR PO SCH (05:47)
--- NOTE | 2020-12-26 06:27 | PCM.PN ---
- General Info Date of Service: 12/26/20 Admission Dx/Problem (Free Text): Rehabilitation Subjective Update: She had trouble falling asleep last night. She did get Benadryl on top of her scheduled gabapentin and oxycodone as well as as needed short acting oxycodone. She denies any fever or chills. She is eating and drinking fine. She complains of sore back this morning but not much pain. She has not had PT and OT since admission. She has no other acute issues. She is requesting if she can have her [id number] sleep aid which she will be brought over by her today. Functional Status: Reports: Pain Controlled, Tolerating Diet, Ambulating, Urinating. Denies: New Symptoms - Review of Systems General: Denies: Fever, Weakness, Fatigue, Malaise, Chills HEENT: Denies: Contact Lenses Pulmonary: Denies: Shortness of Breath Cardiovascular: Denies: Chest Pain Gastrointestinal: Denies: Abdominal Pain, Decreased Appetite, Nausea, Vomiting Genitourinary: Denies: Dysuria, Frequency, Pain Musculoskeletal: Reports: Back Pain Skin: Denies: Cyanosis, Bruising, Pruritis, Rash Neurological: Reports: Difficulty Walking, Gait Disturbance. Denies: Confusion Psychiatric: Denies: Depression, Anxiety, Agitation, Hallucinations - Patient Data Vitals - Most Recent: Last Vital Signs Temp 36.8 C 12/25/20 20:00 Pulse 79 12/25/20 20:00 Resp 18 12/25/20 20:00 BP 122/54 L 12/25/20 20:00 Pulse Ox 100 12/25/20 20:00 Weight - Most Recent: 43.908 kg I&O - Last 24 Hours: Intake & Output 12/25/20 12/25/20 12/26/20 14:59 22:59 06:59 Intake Total 880 1320 250 Balance 880 1320 250 Lab Results Last 24 Hours: Laboratory Results - last 24 hr 12/23/20 Range/Units 12:40 Thyroxine (T4) 8.1 (4.5-12.0) ug/dL Med Orders - Current: Current Medications Acetaminophen (Acetaminophen 325 Mg Tab) 650 mg PO Q6H PRN PRN Reason: Pain (mild 1-3) Last Admin: 12/26/20 02:03 Dose: 650 mg Documented by: Albuterol (Albuterol 6.7 Gm Inhaler) 0 gm INH Q4H PRN PRN Reason: Wheezing Albuterol/Ipratropium (Albuterol/Ipratropium 3.0-0.5 Mg/3 Ml Neb Soln) 3 ml NEB Q4H PRN PRN Reason: shortness of breath/wheezing Amlodipine Besylate (Amlodipine 5 Mg Tab) 5 mg PO DAILY [facility] Last Admin: 12/25/20 08:23 Dose: 5 mg Documented by: Bisacodyl (Bisacodyl 5 Mg Tab) 5 mg PO DAILY PRN PRN Reason: Constipation, use second Diphenhydramine HCl (Diphenhydramine 25 Mg Tab) 25 mg PO DAILY PRN PRN Reason: Allergies Last Admin: 12/25/20 21:58 Dose: 25 mg Documented by: Ergocalciferol (Ergocalciferol (Vitamin D2) 1.25 Mg Cap) 1.25 mg PO Q7D [facility] Last Admin: 12/24/20 11:42 Dose: 1.25 mg Documented by: Gabapentin (Gabapentin 400 Mg Cap) 400 mg PO TID [facility] Last Admin: 12/25/20 21:04 Dose: 400 mg Documented by: Influenza Virus Vaccine (Pharmacy To Dose - Influenza Vaccine) 1 each IM DAILY [facility] Non-Formulary Medication (Doxylamine Succinate [Unisom]) 25 mg PO BEDTIME PRN PRN Reason: Sleep Omeprazole (Omeprazole 20 Mg Cap.Cr) 20 mg PO ACBREAKFAST [facility] Last Admin: 12/26/20 05:47 Dose: 20 mg Documented by: Ondansetron HCl (Ondansetron 4 Mg/2 Ml Sdv) 4 mg IVPUSH Q6H PRN PRN Reason: Nausea/Vomiting Oxycodone HCl (Oxycodone 5 Mg Tab) 5 mg PO Q6H PRN PRN Reason: Pain (moderate 4-6) Last Admin: 12/25/20 13:34 Dose: 5 mg Documented by: Oxycodone HCl (Oxycodone Er 10 Mg Tab.Er) 10 mg PO Q12HR [facility] Last Admin: 12/25/20 21:03 Dose: 10 mg Documented by: Senna/Docusate Sodium (Docusate Sodium/Sennosides 50-8.6 Mg Tab) 1 tab PO DAILY [facility] Last Admin: 12/25/20 08:24 Dose: 1 tab Documented by: Venlafaxine HCl (Venlafaxine 37.5 Mg Cap.Er) 75 mg PO DAILY [facility] Last Admin: 12/25/20 08:22 Dose: 75 mg Documented by: Discontinued Medications Hydromorphone HCl (Hydromorphone 0.5 Mg/0.5 Ml Syringe) 0.5 mg IVPUSH Q2H PRN PRN Reason: Pain (severe 7-10) Last Admin: 12/25/20 00:42 Dose: 0.5 mg Documented by: Senna/Docusate Sodium (Docusate Sodium/Sennosides 50-8.6 Mg Tab) 1 tab PO BEDTIME PRN PRN Reason: Constipation, use first - Exam Quality Assessment: Supplemental Oxygen, DVT Prophylaxis. No: Urine Catheter General: Alert, Oriented, Cooperative, No Acute Distress HEENT: Pupils Equal, Pupils Reactive, EOMI, Mucous Membr. Moist/[place] Neck: Supple Lungs: Clear to Auscultation, Normal Respiratory Effort Cardiovascular: Regular Rate, Regular Rhythm GI/Abdominal Exam: Normal Bowel Sounds, Soft, Non-Tender, No Organomegaly, No Distention, No Abnormal Bruit, No Mass (Female) Exam: Deferred Back Exam: Normal Inspection, Decreased Range of Motion, Paraspinal Tenderness, Vertebral Tenderness Extremities: Normal Inspection, Normal Range of Motion, Non-Tender, No Pedal Edema, Normal Capillary Refill Peripheral Pulses: 2+: Dorsalis Pedis (L), Dorsalis Pedis (R) Skin: Warm, Dry, Intact Wound/Incisions: Healing Well, Dressing Dry and Intact, No Drainage Neurological: No New Focal Deficit Psy/Mental Status: Alert, Normal Affect, Normal Mood - Patient Data Lab Results Last 24 hrs: Laboratory Results - last 24 hr 12/23/20 Range/Units 12:40 Thyroxine (T4) 8.1 (4.5-12.0) ug/dL Sepsis Event Note - Evaluation Sepsis Screening Result: No Definite Risk - Focused Exam Vital Signs: Vital Signs Temp Pulse Resp BP Pulse Ox 12/25/20 20:00 36.8 C 79 18 122/54 L 100 - Problem List Review Problem List Initiated/Reviewed/Updated: Yes - My Orders Last 24 Hours: My Active Orders 12/30/20 09:00 Pharmacy to Dose - InFluenza V [Pharmacy to Dose - InFluenza Vaccine] 1 each IM DAILY - Assessment Assessment:: This is a 70-year-old elderly white female with past medical history of hypertension, cardiac murmur, nonrheumatic heart aortic valve stenosis, history of pericarditis, anemia of chronic disease, diverticulosis status post colonoscopy in July of 2019, GERD, history of esophagitis status post EGD in 2019, history of hyponatremia, DJD, lumbar stenosis with neurogenic claudication, spondylolisthesis at L4-L5 level, rheumatoid arthritis, osteoporosis, left rotator cuff arthropathy, history of TB infection, vitamin D deficiency, and polyarthritis who comes to us from home after failing outpatient treatment. Assessment: Acute: Acute back pain failed outpatient treatment Lumbar stenosis with neurogenic claudication Spondylolisthesis at L4-L5 level status post spinal fusion Degenerative joint disease Polyarthritis Osteoporosis Vitamin D deficiency Low TSH but normal FT4 level Rheumatoid arthritis Insomnia Chronic: Hypertension, cardiac murmur, nonrheumatic heart aortic valve stenosis, history of pericarditis, anemia of chronic disease, diverticulosis status post colonoscopy in July of 2019, GERD, history of esophagitis status post EGD in 2019, history of hyponatremia, left rotator cuff arthropathy, and history of TB infection - Plan Plan:: Plan: Admit to rehab Resume home meds Vitamin D supplement PT/OT to assess and treat Nutritional medicine consult Continue with home dose Neurontin and short acting as needed oxycodone with holding parameters Continue long-acting oxycodone twice a day Follow precautions Resume home meds once verified Regular diet Stool softener to prevent opioid induced constipation Okay to have [id number] sleep aid SCDs for DVT prophylaxis Rehab potential: Excellent Discharge plan: At least near prior level of function CODE STATUS is DNR/DNI
[2020-12-26] MEDS: oxyCODONE ER 10 MG TAB.ER PO SCH ×2 (08:36→20:11)
[2020-12-26] MEDS: Gabapentin 400 MG Cap PO SCH ×3 (08:36→20:10)
[2020-12-26] MEDS: amLODIPine 5 MG Tab PO SCH (08:38)
[2020-12-26] MEDS: Venlafaxine 37.5 MG Cap.ER PO SCH (08:39)
[2020-12-26] MEDS: oxyCODONE 5 MG Tab PO PRN ×2 (13:48→20:10)
[2020-12-26] MEDS: diphenhydrAMINE 25 MG Tab PO PRN (23:08)
[2020-12-27] MEDS: oxyCODONE 5 MG Tab PO PRN ×3 (03:07→19:06)
[2020-12-27] MEDS: Omeprazole 20 MG Cap.CR PO SCH (05:56)
[2020-12-27] MEDS ORDERED: diphenhydrAMINE 25 MG Tab PO PRN ×2 (07:20→07:21)
[2020-12-27] MEDS: oxyCODONE ER 10 MG TAB.ER PO SCH ×2 (08:04→22:03)
[2020-12-27] MEDS: Venlafaxine 37.5 MG Cap.ER PO SCH (08:07)
[2020-12-27] MEDS: Gabapentin 400 MG Cap PO SCH ×3 (08:07→22:03)
[2020-12-27] MEDS: amLODIPine 5 MG Tab PO SCH (08:11)
[2020-12-27] MEDS: Lidocaine 5% 700 MG Patch TRDERM SCH (09:24)
[2020-12-27] MEDS ORDERED: Ondansetron 4 MG Tab.DIS PO PRN (16:37)
[2020-12-27] MEDS: Remove Patch **LIDOCAINE PATCH TRDERM SCH (22:04)
[2020-12-28] MEDS: diphenhydrAMINE 25 MG Tab PO PRN ×2 (01:44→22:56)
[2020-12-28] MEDS: Acetaminophen 325 MG Tab PO PRN ×3 (01:44→19:46)
[2020-12-28] MEDS: oxyCODONE 5 MG Tab PO PRN ×2 (01:59→14:45)
[2020-12-28] MEDS: Omeprazole 20 MG Cap.CR PO SCH (05:13)
[2020-12-28] MEDS: Lidocaine 5% 700 MG Patch TRDERM SCH (08:15)
[2020-12-28] MEDS: Gabapentin 400 MG Cap PO SCH ×3 (08:17→21:21)
[2020-12-28] MEDS: amLODIPine 5 MG Tab PO SCH (08:18)
[2020-12-28] MEDS: oxyCODONE ER 10 MG TAB.ER PO SCH ×2 (08:19→21:21)
[2020-12-28] MEDS: Venlafaxine 37.5 MG Cap.ER PO SCH (08:19)
[2020-12-28] MEDS: Remove Patch **LIDOCAINE PATCH TRDERM SCH (21:22)
[2020-12-29] MEDS: oxyCODONE 5 MG Tab PO PRN ×5 (00:59→22:39)
[2020-12-29] MEDS: Omeprazole 20 MG Cap.CR PO SCH (06:06)
[2020-12-29] MEDS: Gabapentin 400 MG Cap PO SCH ×3 (08:12→20:58)
[2020-12-29] MEDS: amLODIPine 5 MG Tab PO SCH (08:13)
[2020-12-29] MEDS: oxyCODONE ER 10 MG TAB.ER PO SCH ×2 (08:14→20:58)
[2020-12-29] MEDS: Lidocaine 5% 700 MG Patch TRDERM SCH (08:15)
[2020-12-29] MEDS: Venlafaxine 37.5 MG Cap.ER PO SCH (08:15)
[2020-12-29] MEDS: Acetaminophen 325 MG Tab PO PRN ×2 (13:23→21:00)
[2020-12-29] MEDS: Remove Patch **LIDOCAINE PATCH TRDERM SCH (21:03)
[2020-12-29] MEDS: diphenhydrAMINE 25 MG Tab PO PRN (22:39)
[2020-12-30] MEDS: oxyCODONE 5 MG Tab PO PRN ×4 (02:48→23:20)
[2020-12-30] MEDS: Acetaminophen 325 MG Tab PO PRN ×2 (05:31→16:29)
[2020-12-30] MEDS: Omeprazole 20 MG Cap.CR PO SCH (05:32)
[2020-12-30] MEDS: diphenhydrAMINE 25 MG Tab PO PRN ×2 (05:36→21:21)
[2020-12-30] MEDS: oxyCODONE ER 10 MG TAB.ER PO SCH ×2 (08:53→21:10)
[2020-12-30] MEDS: Gabapentin 400 MG Cap PO SCH ×3 (08:55→21:10)
[2020-12-30] MEDS: Venlafaxine 37.5 MG Cap.ER PO SCH (08:55)
[2020-12-30] MEDS: amLODIPine 5 MG Tab PO SCH (08:56)
[2020-12-30] MEDS: Lidocaine 5% 700 MG Patch TRDERM SCH (08:57)
[2020-12-30] MEDS: Remove Patch **LIDOCAINE PATCH TRDERM SCH (21:13)
[2020-12-31] MEDS: diphenhydrAMINE 25 MG Tab PO PRN ×3 (01:52→21:23)
[2020-12-31] MEDS: oxyCODONE 5 MG Tab PO PRN ×4 (03:56→17:05)
[2020-12-31] MEDS: Acetaminophen 325 MG Tab PO PRN (06:32)
[2020-12-31] MEDS: Omeprazole 20 MG Cap.CR PO SCH (06:33)
[2020-12-31] MEDS: Venlafaxine 37.5 MG Cap.ER PO SCH (08:34)
[2020-12-31] MEDS: Ergocalciferol (Vitamin D2) 1.25 MG Cap PO SCH (08:34)
[2020-12-31] MEDS: oxyCODONE ER 10 MG TAB.ER PO SCH ×2 (08:35→21:23)
[2020-12-31] MEDS: Gabapentin 400 MG Cap PO SCH ×3 (08:36→21:23)
[2020-12-31] MEDS: amLODIPine 5 MG Tab PO SCH (08:36)
[2020-12-31] MEDS: Lidocaine 5% 700 MG Patch TRDERM SCH (08:38)
[2020-12-31] MEDS: Loratadine 10 MG Tab PO SCH (10:36)
[2020-12-31] MEDS: Remove Patch **LIDOCAINE PATCH TRDERM SCH (21:28)
[2021-01-01] MEDS: oxyCODONE 5 MG Tab PO PRN ×4 (03:21→23:59)
[2021-01-01] MEDS: Omeprazole 20 MG Cap.CR PO SCH (05:58)
[2021-01-01] MEDS: Acetaminophen 325 MG Tab PO PRN ×2 (06:03→21:06)
[2021-01-01] MEDS: Lidocaine 5% 700 MG Patch TRDERM SCH (08:32)
[2021-01-01] MEDS: Gabapentin 400 MG Cap PO SCH ×3 (08:37→21:04)
[2021-01-01] MEDS: oxyCODONE ER 10 MG TAB.ER PO SCH ×2 (08:37→21:05)
[2021-01-01] MEDS: amLODIPine 5 MG Tab PO SCH (08:37)
[2021-01-01] MEDS: Venlafaxine 37.5 MG Cap.ER PO SCH (08:38)
[2021-01-01] MEDS: Loratadine 10 MG Tab PO SCH (08:38)
[2021-01-01] MEDS: diphenhydrAMINE 25 MG Tab PO PRN (21:05)
[2021-01-01] MEDS: Remove Patch **LIDOCAINE PATCH TRDERM SCH (21:09)
[2021-01-02] MEDS: oxyCODONE 5 MG Tab PO PRN ×4 (04:07→22:30)
[2021-01-02] MEDS: Omeprazole 20 MG Cap.CR PO SCH (05:55)
[2021-01-02] MEDS: Lidocaine 5% 700 MG Patch TRDERM SCH (08:33)
[2021-01-02] MEDS: Venlafaxine 37.5 MG Cap.ER PO SCH (08:34)
[2021-01-02] MEDS: Loratadine 10 MG Tab PO SCH (08:34)
[2021-01-02] MEDS: amLODIPine 5 MG Tab PO SCH (08:34)
[2021-01-02] MEDS: oxyCODONE ER 10 MG TAB.ER PO SCH ×2 (08:34→21:00)
[2021-01-02] MEDS: Gabapentin 400 MG Cap PO SCH ×3 (08:34→21:00)
--- NOTE | 2021-01-02 09:44 | PCM.PN ---
- General Info Date of Service: 01/02/21 Functional Status: Reports: Pain Controlled, Tolerating Diet - Review of Systems Pulmonary: Denies: Shortness of Breath Cardiovascular: Denies: Chest Pain Musculoskeletal: Reports: Neck Pain Neurological: Reports: No Symptoms. Denies: Confusion Psychiatric: Reports: No Symptoms - Patient Data Vitals - Most Recent: Last Vital Signs Temp 97.8 F 01/02/21 08:07 Pulse 74 01/02/21 08:07 Resp 16 01/02/21 08:07 BP 125/59 L 01/02/21 08:34 Pulse Ox 98 01/02/21 08:07 Weight - Most Recent: 95 lb 6.4 oz I&O - Last 24 Hours: Intake & Output 01/01/21 01/02/21 01/02/21 22:59 06:59 14:59 Intake Total 200 200 450 Balance 200 200 450 Med Orders - Current: Current Medications Acetaminophen (Acetaminophen 325 Mg Tab) 650 mg PO Q6H PRN PRN Reason: Pain (mild 1-3) Last Admin: 01/01/21 21:06 Dose: 650 mg Documented by: Albuterol (Albuterol 6.7 Gm Inhaler) 0 gm INH Q4H PRN PRN Reason: Wheezing Albuterol/Ipratropium (Albuterol/Ipratropium 3.0-0.5 Mg/3 Ml Neb Soln) 3 ml NEB Q4H PRN PRN Reason: shortness of breath/wheezing Amlodipine Besylate (Amlodipine 5 Mg Tab) 5 mg PO DAILY [facility] Last Admin: 01/02/21 08:34 Dose: 5 mg Documented by: Bisacodyl (Bisacodyl 5 Mg Tab) 5 mg PO DAILY PRN PRN Reason: Constipation, use second Diphenhydramine HCl (Diphenhydramine 25 Mg Tab) 25 mg PO BID PRN PRN Reason: Allergies and/or sleep Last Admin: 01/01/21 21:05 Dose: 25 mg Documented by: Ergocalciferol (Ergocalciferol (Vitamin D2) 1.25 Mg Cap) 1.25 mg PO Q7D [facility] Last Admin: 12/31/20 08:34 Dose: 1.25 mg Documented by: Gabapentin (Gabapentin 400 Mg Cap) 400 mg PO TID [facility] Last Admin: 01/02/21 08:34 Dose: 400 mg Documented by: Influenza Virus Vaccine (Pharmacy To Dose - Influenza Vaccine) 1 each IM DAILY [facility] Last Admin: 01/02/21 08:35 Dose: Not Given Documented by: Lidocaine (Lidocaine 5% 700 Mg Patch) 700 mg TRDERM Q24H [facility] Last Admin: 01/02/21 08:33 Dose: 700 mg Documented by: Loratadine (Loratadine 10 Mg Tab) 10 mg PO DAILY [facility] Last Admin: 01/02/21 08:34 Dose: 10 mg Documented by: Miscellaneous Information (Remove Patch Lidocaine Patch ) 1 ea TRDERM BEDTIME [facility] Last Admin: 01/01/21 21:09 Dose: Not Given Documented by: Omeprazole (Omeprazole 20 Mg Cap.Cr) 20 mg PO ACBREAKFAST [facility] Last Admin: 01/02/21 05:55 Dose: 20 mg Documented by: Ondansetron HCl (Ondansetron 4 Mg Tab.Dis) 4 mg PO Q6H PRN PRN Reason: Nausea Last Admin: 12/27/20 16:50 Dose: 4 mg Documented by: Oxycodone HCl (Oxycodone Er 10 Mg Tab.Er) 10 mg PO Q12HR [facility] Last Admin: 01/02/21 08:34 Dose: 10 mg Documented by: Oxycodone HCl (Oxycodone 5 Mg Tab) 5 mg PO Q4H PRN PRN Reason: pain moderate to severe Last Admin: 01/02/21 04:07 Dose: 5 mg Documented by: Senna/Docusate Sodium (Docusate Sodium/Sennosides 50-8.6 Mg Tab) 1 tab PO DAILY [facility] Last Admin: 01/02/21 08:35 Dose: 1 tab Documented by: Venlafaxine HCl (Venlafaxine 37.5 Mg Cap.Er) 75 mg PO DAILY [facility] Last Admin: 01/02/21 08:34 Dose: 75 mg Documented by: Discontinued Medications Diphenhydramine HCl (Diphenhydramine 25 Mg Tab) 25 mg PO DAILY PRN PRN Reason: Allergies Last Admin: 12/28/20 22:56 Dose: 25 mg Documented by: Diphenhydramine HCl (Diphenhydramine 25 Mg Tab) 25 mg PO BEDTIME PRN PRN Reason: Other Last Admin: 12/29/20 10:33 Dose: 25 mg Documented by: Diphenhydramine HCl (Diphenhydramine 25 Mg Tab) 25 mg PO BEDTIME PRN PRN Reason: Sleep Hydromorphone HCl (Hydromorphone 0.5 Mg/0.5 Ml Syringe) 0.5 mg IVPUSH Q2H PRN PRN Reason: Pain (severe 7-10) Last Admin: 12/25/20 00:42 Dose: 0.5 mg Documented by: Non-Formulary Medication (Doxylamine Succinate [Unisom]) 25 mg PO BEDTIME PRN PRN Reason: Sleep Ondansetron HCl (Ondansetron 4 Mg/2 Ml Sdv) 4 mg IVPUSH Q6H PRN PRN Reason: Nausea/Vomiting Oxycodone HCl (Oxycodone 5 Mg Tab) 5 mg PO Q6H PRN PRN Reason: Pain (moderate 4-6) Last Admin: 12/28/20 14:45 Dose: 5 mg Documented by: Senna/Docusate Sodium (Docusate Sodium/Sennosides 50-8.6 Mg Tab) 1 tab PO BEDTIME PRN PRN Reason: Constipation, use first - Exam Quality Assessment: No: Supplemental Oxygen General: Alert, Oriented Lungs: Clear to Auscultation Cardiovascular: Regular Rate, Regular Rhythm GI/Abdominal Exam: Soft, Non-Tender Extremities: No Pedal Edema Skin: Warm Neurological: No New Focal Deficit Psy/Mental Status: Alert, Normal Affect Sepsis Event Note - Evaluation Sepsis Screening Result: No Definite Risk - Focused Exam Vital Signs: Vital Signs Temp Pulse Resp BP BP Pulse Ox 01/02/21 08:34 125/59 L 01/02/21 08:07 97.8 F 74 16 125/59 L 98 - Problem List Review Problem List Initiated/Reviewed/Updated: Yes - Assessment Assessment:: This is a 70-year-old elderly white female with past medical history of hypertension, cardiac murmur, nonrheumatic heart aortic valve stenosis, history of pericarditis, anemia of chronic disease, diverticulosis status post colonoscopy in July of 2019, GERD, history of esophagitis status post EGD in 2019, history of hyponatremia, DJD, lumbar stenosis with neurogenic claudication, spondylolisthesis at L4-L5 level, rheumatoid arthritis, osteoporosis, left rotator cuff arthropathy, history of TB infection, vitamin D deficiency, and polyarthritis who comes to us from home after failing outpatient treatment. Assessment: Acute: Acute back pain failed outpatient treatment Lumbar stenosis with neurogenic claudication Spondylolisthesis at L4-L5 level status post spinal fusion Degenerative joint disease Polyarthritis Osteoporosis Vitamin D deficiency Low TSH but normal FT4 level Rheumatoid arthritis Insomnia Chronic: Hypertension, cardiac murmur, nonrheumatic heart aortic valve stenosis, history of pericarditis, anemia of chronic disease, diverticulosis status post colonoscopy in July of 2019, GERD, history of esophagitis status post EGD in 2019, history of hyponatremia, left rotator cuff arthropathy, and history of TB infection - Plan Plan:: Plan: Pt has a clinic visit scheduled with her neurosurgeon. Continue with rehab Resume home meds Vitamin D supplement PT/OT to assess and treat Nutritional medicine consult Continue with home dose Neurontin and short acting as needed oxycodone with holding parameters Continue long-acting oxycodone twice a day Follow precautions Resume home meds once verified Regular diet Stool softener to prevent opioid induced constipation Okay to have [id number] sleep aid SCDs for DVT prophylaxis Rehab potential: Excellent Discharge plan: At least near prior level of function CODE STATUS is DNR/DNI
[2021-01-02] MEDS: Acetaminophen 325 MG Tab PO PRN (21:01)
[2021-01-02] MEDS: Remove Patch **LIDOCAINE PATCH TRDERM SCH (21:02)
[2021-01-03] MEDS: oxyCODONE 5 MG Tab PO PRN ×3 (02:46→17:46)
[2021-01-03] MEDS: Acetaminophen 325 MG Tab PO PRN ×3 (05:49→22:45)
[2021-01-03] MEDS: Omeprazole 20 MG Cap.CR PO SCH (05:49)
[2021-01-03] MEDS: oxyCODONE ER 10 MG TAB.ER PO SCH ×2 (08:20→20:48)
[2021-01-03] MEDS: Loratadine 10 MG Tab PO SCH (08:20)
[2021-01-03] MEDS: Venlafaxine 37.5 MG Cap.ER PO SCH (08:21)
[2021-01-03] MEDS: Gabapentin 400 MG Cap PO SCH ×3 (08:21→20:48)
[2021-01-03] MEDS: amLODIPine 5 MG Tab PO SCH (08:21)
[2021-01-03] MEDS: Lidocaine 5% 700 MG Patch TRDERM SCH (08:22)
[2021-01-03] MEDS: diphenhydrAMINE 25 MG Tab PO PRN (20:48)
[2021-01-03] MEDS: Remove Patch **LIDOCAINE PATCH TRDERM SCH (20:49)
[2021-01-03] MEDS ORDERED: Melatonin 3 MG Tab PO PRN (21:42)
[2021-01-04] MEDS: oxyCODONE 5 MG Tab PO PRN ×2 (01:38→10:18)
[2021-01-04] MEDS: Omeprazole 20 MG Cap.CR PO SCH (06:37)
--- NOTE | 2021-01-04 08:11 | PCM.DCSUM1 ---
Discharge Summary - Hospital Course Free Text/Narrative:: his is a 70-year-old elderly white female with past medical history of hypertension, cardiac murmur, nonrheumatic heart aortic valve stenosis, history of pericarditis, anemia of chronic disease, diverticulosis status post colonoscopy in July of 2019, GERD, history of esophagitis status post EGD in 2019, history of hyponatremia, DJD, lumbar stenosis with neurogenic claudication, spondylolisthesis at L4-L5 level, rheumatoid arthritis, osteoporosis, left rotator cuff arthropathy, history of TB infection, vitamin D deficiency, and polyarthritis who comes to us from home after failing outpatient treatment. Assessment: Acute: Acute back pain failed outpatient treatment. Spondylolisthesis at L4-L5 level status post spinal fusion Degenerative joint disease Polyarthritis Osteoporosis Vitamin D deficiency Low TSH but normal FT4 level Rheumatoid arthritis Insomnia Chronic: Hypertension, cardiac murmur, nonrheumatic heart aortic valve stenosis, history of pericarditis, anemia of chronic disease, diverticulosis status post colonoscopy in July of 2019, GERD, history of esophagitis status post EGD in 2019, history of hyponatremia, left rotator cuff arthropathy, and history of TB infection During her stay , her pain was controlled and her functional status improved. PT/PT advised to continue outpt treatment. CODE STATUS is DNR/DNI - Discharge Data Discharge Date: 01/04/21 Discharge Disposition: Home, Self-Care 01 Condition: Good - Referral to Home Health Date of Face to Face Encounter: 01/04/21 Primary Care Physician: Lesia Painter NP Skilled Need: [facility] for medication management. Physical Thearpy for strngthening and mobility. Occupational therapy : home assissment and ADL's - Patient Summary/Data Consults: Consultations 12/23/20 12:03 Consult to Case Management/Appliance Line Assembler [CONS] Routine Consult to Laundry Housekeeper [CONS] Routine OT Evaluation and Treatment [CONS] Routine PT Evaluation and Treatment [CONS] Routine - Patient Instructions Diet: Heart Healthy Diet Activity: As Tolerated, Non Weight Bearing Notify Provider of: Fever, Increased Pain, Swelling and Redness, Drainage, Nausea and/or Vomiting - Discharge Plan *PRESCRIPTION DRUG MONITORING PROGRAM REVIEWED*: No *COPY OF PRESCRIPTION DRUG MONITORING REPORT IN PATIENT CONCEPCION: No Prescriptions/Med Rec: oxyCODONE 5 mg PO Q6H PRN 14 Days #60 PRN Reason: Pain oxyCODONE ER [OxyCONTIN] 10 mg PO Q12HR 14 Days #28 tab.er Docusate Sodium/Sennosides [Senna Plus] 1 tab PO DAILY 14 Days #28 tablet Home Medications: Home Meds Cyanocobalamin (Vitamin B-12) [Cyanocobalamin Injection] 1 ml IM ASDIRECTED 03/19/16 [History] Acetaminophen [Tylenol Arthritis] 650 mg PO Q6H PRN 12/22/20 [History] Albuterol Sulfate [Albuterol Sulfate HFA] 2 puff INH Q4H PRN 12/22/20 [History] Doxylamine Succinate [Unisom] 25 mg PO BEDTIME PRN 12/22/20 [History] Gabapentin [Neurontin] 400 mg PO TID 12/22/20 [History] Omeprazole 20 mg PO DAILY 12/22/20 [History] Venlafaxine HCl [Venlafaxine ER] 75 mg PO DAILY 12/22/20 [History] amLODIPine [Norvasc] 5 mg PO DAILY 12/22/20 [History] diphenhydrAMINE [Benadryl] 25 mg PO DAILY PRN 12/22/20 [History] diphenhydrAMINE HCL [Diphenhydramine HCl] 50 mg PO BEDTIME 12/27/20 [History] Albuterol [Proventil HFA] 0 gm INH Q4H PRN inhaler 01/04/21 [Rx] Docusate Sodium/Sennosides [Senna Plus] 1 tab PO DAILY 14 Days #28 tablet 01/04/21 [Rx] Ergocalciferol (Vitamin D2) [Vitamin D2] 1.25 mg PO Q7D cap 01/04/21 [Rx] bisacodyL [Dulcolax] 5 mg PO DAILY PRN tablet 01/04/21 [Rx] diphenhydrAMINE [Benadryl] 25 mg PO BID PRN tablet 01/04/21 [Rx] oxyCODONE 5 mg PO Q6H PRN 14 Days #60 01/04/21 [Rx] oxyCODONE 5 mg PO Q6HR PRN 7 Days #0 tablet 01/04/21 [Rx] oxyCODONE ER [OxyCONTIN] 10 mg PO Q12HR 14 Days #28 tab.er 01/04/21 [Rx] Oxygen Therapy Mode: Room Air Patient Handouts: Acute Back Pain, Adult, Spinal Fusion, Adult, Care After, [id number] Referrals: Lesia Painter NP [Primary Care Provider] - - Discharge Summary/Plan Comment DC Time >30 min.: Yes Total # of Minutes for Discharge Time: 35 min - General Info Date of Service: 01/04/21 Functional Status: Reports: Pain Controlled, Tolerating Diet - Review of Systems General: Denies: Fever Pulmonary: Denies: Shortness of Breath Cardiovascular: Denies: Chest Pain Gastrointestinal: Reports: Abdominal Pain Musculoskeletal: Reports: Back Pain (controlled) Neurological: Reports: No Symptoms Psychiatric: Reports: No Symptoms - Patient Data Vitals - Most Recent: Last Vital Signs Temp 98.6 F 01/03/21 20:00 Pulse 99 01/03/21 20:00 Resp 18 01/03/21 20:00 BP 123/55 L 01/03/21 20:00 Pulse Ox 99 01/03/21 20:00 Weight - Most Recent: 95 lb 6.4 oz I&O - Last 24 hours: Intake & Output 01/03/21 01/04/21 01/04/21 22:59 06:59 14:59 Intake Total 175 Balance 175 Med Orders - Current: Current Medications Acetaminophen (Acetaminophen 325 Mg Tab) 650 mg PO Q6H PRN PRN Reason: Pain (mild 1-3) Last Admin: 01/03/21 22:45 Dose: 650 mg Documented by: Albuterol (Albuterol 6.7 Gm Inhaler) 0 gm INH Q4H PRN PRN Reason: Wheezing Albuterol/Ipratropium (Albuterol/Ipratropium 3.0-0.5 Mg/3 Ml Neb Soln) 3 ml NEB Q4H PRN PRN Reason: shortness of breath/wheezing Amlodipine Besylate (Amlodipine 5 Mg Tab) 5 mg PO DAILY [facility] Last Admin: 01/03/21 08:21 Dose: 5 mg Documented by: Bisacodyl (Bisacodyl 5 Mg Tab) 5 mg PO DAILY PRN PRN Reason: Constipation, use second Diphenhydramine HCl (Diphenhydramine 25 Mg Tab) 25 mg PO BID PRN PRN Reason: Allergies and/or sleep Last Admin: 01/03/21 20:48 Dose: 25 mg Documented by: Ergocalciferol (Ergocalciferol (Vitamin D2) 1.25 Mg Cap) 1.25 mg PO Q7D [facility] Last Admin: 12/31/20 08:34 Dose: 1.25 mg Documented by: Gabapentin (Gabapentin 400 Mg Cap) 400 mg PO TID [facility] Last Admin: 01/03/21 20:48 Dose: 400 mg Documented by: Influenza Virus Vaccine (Pharmacy To Dose - Influenza Vaccine) 1 each IM DAILY [facility] Last Admin: 01/03/21 08:22 Dose: Not Given Documented by: Lidocaine (Lidocaine 5% 700 Mg Patch) 700 mg TRDERM Q24H [facility] Last Admin: 01/03/21 08:22 Dose: 700 mg Documented by: Loratadine (Loratadine 10 Mg Tab) 10 mg PO DAILY [facility] Last Admin: 01/03/21 08:20 Dose: 10 mg Documented by: Melatonin (Melatonin 3 Mg Tab) 3 mg PO BEDTIME PRN PRN Reason: Insomnia Last Admin: 01/03/21 22:00 Dose: 3 mg Documented by: Miscellaneous Information (Remove Patch Lidocaine Patch ) 1 ea TRDERM BEDTIME [facility] Last Admin: 01/03/21 20:49 Dose: Not Given Documented by: Omeprazole (Omeprazole 20 Mg Cap.Cr) 20 mg PO ACBREAKFAST [facility] Last Admin: 01/04/21 06:37 Dose: 20 mg Documented by: Ondansetron HCl (Ondansetron 4 Mg Tab.Dis) 4 mg PO Q6H PRN PRN Reason: Nausea Last Admin: 12/27/20 16:50 Dose: 4 mg Documented by: Oxycodone HCl (Oxycodone Er 10 Mg Tab.Er) 10 mg PO Q12HR [facility] Last Admin: 01/03/21 20:48 Dose: 10 mg Documented by: Oxycodone HCl (Oxycodone 5 Mg Tab) 5 mg PO Q4H PRN PRN Reason: pain moderate to severe Last Admin: 01/04/21 01:38 Dose: 5 mg Documented by: Senna/Docusate Sodium (Docusate Sodium/Sennosides 50-8.6 Mg Tab) 1 tab PO DAILY [facility] Last Admin: 01/03/21 08:20 Dose: 1 tab Documented by: Venlafaxine HCl (Venlafaxine 37.5 Mg Cap.Er) 75 mg PO DAILY [facility] Last Admin: 01/03/21 08:21 Dose: 75 mg Documented by: Discontinued Medications Diphenhydramine HCl (Diphenhydramine 25 Mg Tab) 25 mg PO DAILY PRN PRN Reason: Allergies Last Admin: 12/28/20 22:56 Dose: 25 mg Documented by: Diphenhydramine HCl (Diphenhydramine 25 Mg Tab) 25 mg PO BEDTIME PRN PRN Reason: Other Last Admin: 12/29/20 10:33 Dose: 25 mg Documented by: Diphenhydramine HCl (Diphenhydramine 25 Mg Tab) 25 mg PO BEDTIME PRN PRN Reason: Sleep Hydromorphone HCl (Hydromorphone 0.5 Mg/0.5 Ml Syringe) 0.5 mg IVPUSH Q2H PRN PRN Reason: Pain (severe 7-10) Last Admin: 12/25/20 00:42 Dose: 0.5 mg Documented by: Non-Formulary Medication (Doxylamine Succinate [Unisom]) 25 mg PO BEDTIME PRN PRN Reason: Sleep Ondansetron HCl (Ondansetron 4 Mg/2 Ml Sdv) 4 mg IVPUSH Q6H PRN PRN Reason: Nausea/Vomiting Oxycodone HCl (Oxycodone 5 Mg Tab) 5 mg PO Q6H PRN PRN Reason: Pain (moderate 4-6) Last Admin: 12/28/20 14:45 Dose: 5 mg Documented by: Senna/Docusate Sodium (Docusate Sodium/Sennosides 50-8.6 Mg Tab) 1 tab PO BEDTIME PRN PRN Reason: Constipation, use first - Exam Quality Assessment: Denies: Supplemental Oxygen General: Reports: Alert, Oriented HEENT: Reports: EOMI Lungs: Reports: Clear to Auscultation Cardiovascular: Reports: Regular Rate, Regular Rhythm Skin: Reports: Warm, Dry Neurological: Reports: No New Focal Deficit Psy/Mental Status: Reports: Alert
[2021-01-04 08:34] VITALS: BP 139/57; PULSE 93
[2021-01-04] MEDS: Lidocaine 5% 700 MG Patch TRDERM SCH (09:07)
[2021-01-04] MEDS: oxyCODONE ER 10 MG TAB.ER PO SCH (09:07)
[2021-01-04] MEDS: Venlafaxine 37.5 MG Cap.ER PO SCH (09:08)
[2021-01-04] MEDS: Loratadine 10 MG Tab PO SCH (09:08)
[2021-01-04] MEDS: Gabapentin 400 MG Cap PO SCH (09:08)
[2021-01-04] MEDS: amLODIPine 5 MG Tab PO SCH (09:09)
== END 2021-01-04 13:54 | disposition home or self-care (01) | DRG 552 ==
LOC: DL.MS 09:44
PROVIDERS: ADMIT Internal Medicine; ATTEND Internal Medicine
DX: M54.9 Dorsalgia, unspecified (principal); M43.16 Spondylolisthesis, lumbar region; M48.062 Spinal stenosis, lumbar region with neurogenic claudication; M81.0 Age-related osteoporosis without current pathological fracture; E55.9 Vitamin D deficiency, unspecified; M06.9 Rheumatoid arthritis, unspecified; G47.00 Insomnia, unspecified; Z20.822 Contact with and (suspected) exposure to COVID-19; Z66 Do not resuscitate; K57.90 Diverticulosis of intestine, part unspecified, without perforation or abscess without bleeding; I10 Essential (primary) hypertension; I35.0 Nonrheumatic aortic (valve) stenosis; H54.7 Unspecified visual loss; K21.9 Gastro-esophageal reflux disease without esophagitis; Z79.899 Other long term (current) drug therapy; Z88.5 Allergy status to narcotic agent
CPT/HCPCS: 36415; 82306; 82550; 84436; 84443; 90662; 97110-GO; 97110-GP; 97116-GP; 97162-GP; 97165-GO; 97530-GO; 97535-GO; A9270-GY; J1170; U0002

== ENCOUNTER 2021-01-25 23:38 | Emergency (ER) | payer MEDICARE, BC ==
[2021-01-25] MEDS ORDERED: LORazepam 0.5 MG Tab PO ONE (23:39)
[2021-01-26] MEDS ORDERED: LORazepam 1 MG Tab PO ONE (00:37)
--- NOTE | 2021-01-26 01:02 | EDM.PDOC ---
ED HPI GENERAL MEDICAL PROBLEM - General Chief Complaint: Lower Extremity Injury/Pain Stated Complaint: BAD LEG CRAMPS IN LEFT LEG Time Seen by Provider: 01/26/21 00:05 Source of Information: Reports: Patient, RN History Limitations: Reports: No Limitations - History of Present Illness INITIAL COMMENTS - FREE TEXT/NARRATIVE: ED with c/o severe leg cramps since yesterday, did not sleep last night. Not improving through day. Has tried increasing water. tried Benadry.. Chronic oxycodone for back pain. Lumbar fusion 2 months ago. Working with PT for weakness lower extremities. No change. No fever or chills. no urinary symptoms. No loss of bowel or bladder control. No recent fall or injury. lives at home with spouse. Home care services with PT. Left Lower Leg Pain Score (Numeric/FACES): 8 - Related Data Allergies Allergy/AdvReac Type Severity Reaction Status Date / Time propoxyphene Allergy Unknown Cannot Verified 08/24/20 12:36 Remember cetirizine Allergy UNKNOWN Verified 08/24/20 12:36 ketorolac [From Toradol] AdvReac Headache Verified 08/24/20 12:36 Home Meds: Home Meds Cyanocobalamin (Vitamin B-12) [Cyanocobalamin Injection] 1 ml IM ASDIRECTED 03/19/16 [History] Acetaminophen [Tylenol Arthritis] 650 mg PO Q6H PRN 12/22/20 [History] Albuterol Sulfate [Albuterol Sulfate HFA] 2 puff INH Q4H PRN 12/22/20 [History] Doxylamine Succinate [Unisom] 25 mg PO BEDTIME PRN 12/22/20 [History] Gabapentin [Neurontin] 400 mg PO TID 12/22/20 [History] Omeprazole 20 mg PO DAILY 12/22/20 [History] Venlafaxine HCl [Venlafaxine ER] 75 mg PO DAILY 12/22/20 [History] amLODIPine [Norvasc] 5 mg PO DAILY 12/22/20 [History] diphenhydrAMINE [Benadryl] 25 mg PO DAILY PRN 12/22/20 [History] diphenhydrAMINE HCL [Diphenhydramine HCl] 50 mg PO BEDTIME 12/27/20 [History] Albuterol [Proventil HFA] 0 gm INH Q4H PRN inhaler 01/04/21 [Rx] Docusate Sodium/Sennosides [Senna Plus] 1 tab PO DAILY 14 Days #28 tablet 01/04/21 [Rx] Ergocalciferol (Vitamin D2) [Vitamin D2] 1.25 mg PO Q7D cap 01/04/21 [Rx] bisacodyL [Dulcolax] 5 mg PO DAILY PRN tablet 01/04/21 [Rx] diphenhydrAMINE [Benadryl] 25 mg PO BID PRN tablet 01/04/21 [Rx] oxyCODONE 5 mg PO Q6H PRN 14 Days #60 01/04/21 [Rx] oxyCODONE 5 mg PO Q6HR PRN 7 Days #0 tablet 01/04/21 [Rx] oxyCODONE ER [OxyCONTIN] 10 mg PO Q12HR 14 Days #28 tab.er 01/04/21 [Rx] Past Medical History HEENT History: Reports: Impaired Vision Cardiovascular History: Reports: Hypertension Respiratory History: Reports: TB Gastrointestinal History: Reports: GERD ASSOCIATE PRODUCT MANAGER History: Reports: None Other ASSOCIATE PRODUCT MANAGER History: 7 vaginal deliveries Musculoskeletal History: Reports: Arthritis, Back Pain, Chronic, Osteoarthritis, Osteoporosis, RA Other Musculoskeletal History: Pt reports history of "crushed vertebrae". Psychiatric History: Reports: Depression Endocrine/Metabolic History: Reports: Osteoporosis Hematologic History: Reports: B12 Deficiency Immunologic History: Reports: None Oncologic (Cancer) History: Reports: None Dermatologic History: Reports: Psoriasis, Other (See Below) Other Dermatologic History: fungal infection on feet. Small nickel size ulcer beside left outer ankle. Small blister to 4th toe on left foot. - Infectious Disease History Infectious Disease History: Reports: TB - Past Surgical History HEENT Surgical History: Reports: Adenoidectomy, Tonsillectomy GI Surgical History: Reports: Colonoscopy, EGD Other GI Surgeries/Procedures: patient states it was quite awhile ago. Musculoskeletal Surgical History: Reports: Joint Replacement, Knee Replacement, Shoulder Replacement, Shoulder Surgery, Other (See Below) Other Musculoskeletal Surgeries/Procedures:: right knee replacement on June 30, 2018. Spinal fusion. Social & Family History - Family History Family Medical History: No Pertinent Family History HEENT: Reports: Cataract - Tobacco Use Tobacco Use Status *Q: Current Every Day Tobacco User Years of Tobacco use: 56 Packs/Tins Daily: 0.5 - Caffeine Use Caffeine Use: Reports: Coffee Other Caffeine Use: Up to "4 pots of coffee" daily. - Recreational Drug Use Recreational Drug Use: No - Living Situation & Occupation Living situation: Reports: , with Spouse Occupation: Retired Review of Systems - Review of Systems Review Of Systems: Comprehensive ROS is negative, except as noted in HPI. ED EXAM, GENERAL - Physical Exam Exam: See Below Exam Limited By: No Limitations General Appearance: Alert, Moderate Distress, Thin Eye Exam: Bilateral Eye: PERRL Ears: Normal External Exam, Hearing Grossly Normal Ear Exam: Bilateral Ear: TM normal Nose: Normal Inspection Throat/Mouth: Normal Inspection Head: Atraumatic, Normocephalic Neck: Normal Inspection Respiratory/Chest: No Respiratory Distress, Lungs Clear, Normal Breath Sounds Cardiovascular: Normal Peripheral Pulses, Regular Rate, Rhythm GI/Abdominal: Normal Bowel Sounds Extremities: No Pedal Edema. No: Normal Range of Motion Neurological: Alert, Oriented, Normal Cognition. No: Normal Gait (ambulates with walker, chronic left leg weakness), Memory Loss Recent Events, Abnormal Reflexes Psychiatric: Normal Affect, Anxious Skin Exam: Warm, Dry, Intact, Normal Color Course - Vital Signs Last Recorded V/S: Last Vital Signs Temp 99.1 F 01/26/21 01:21 Pulse 72 01/26/21 01:21 Resp 16 01/26/21 01:21 BP 158/74 H 01/26/21 01:21 Pulse Ox 97 01/26/21 01:21 - Orders/Labs/Meds Labs: Laboratory Tests 01/26/21 01/26/21 Range/Units 00:33 00:33 WBC 6.1 (5.0-10.0) 10^3/uL RBC 3.61 L (4.2-5.4) 10^6/uL Hgb 10.0 L (12.0-16.0) g/dL Hct 30.3 L (37.0-47.0) % MCV 83.9 D (80-100) fL MCH 27.7 (27.0-34.0) pg MCHC 33.0 (33.0-35.0) g/dL Plt Count 550 H (150-450) 10^3/uL Neut % (Auto) 58.1 (42.2-75.2) % Lymph % (Auto) 30.0 (20.5-50.1) % Harding % (Auto) 7.0 (2-8) % Eos % (Auto) 4.6 H (1.0-3.0) % Baso % (Auto) 0.3 (0.0-1.0) % Sodium 128 L (136-145) mmol/L Potassium 3.5 (3.5-5.1) mmol/L Chloride 92 L (98-107) mmol/L Carbon Dioxide 23 (21-32) mmol/L Anion Gap 16.5 H (7-13) mEq/L BUN 14 (7-18) mg/dL Creatinine 0.85 (0.55-1.02) mg/dL Est Cr Clr Drug Dosing 42.67 mL/min Estimated GFR (MDRD) > 60 BUN/Creatinine Ratio 16.5 (No establ ref range) Glucose 86 (70-99) mg/dL Calcium 9.0 (8.5-10.1) mg/dL Magnesium 1.9 (1.8-2.4) mg/dL Total Bilirubin 0.3 (0.2-1.0) mg/dL AST 25 (15-37) U/L ALT 37 (14-59) U/L Alkaline Phosphatase 500 H (46-116) U/L C-Reactive Protein 0.4 (0.0-0.9) mg/dL Total Protein 8.3 H (6.4-8.2) g/dL Albumin 3.4 (3.4-5.0) g/dL Globulin 4.9 Albumin/Globulin Ratio 0.7 Meds: Medications Discontinued Medications Generic Name Dose Route Start Last Admin Trade Name Freq PRN Reason Stop Dose Admin Lorazepam 1 mg 01/26/21 00:37 01/26/21 00:46 Lorazepam 1 Mg Tab PO 01/26/21 00:38 1 mg ONETIME ONE Administration - Re-Assessments/Exams Free Text/Narrative Re-Assessment/Exam: 01/26/21 01:32 Improved with ativan. Departure - Departure Time of Disposition: 01:20 Disposition: Home, Self-Care 01 Condition: Good Clinical Impression: Muscle spasm of left lower extremity, Nocturnal leg cramps - Discharge Information *PRESCRIPTION DRUG MONITORING PROGRAM REVIEWED*: No *COPY OF PRESCRIPTION DRUG MONITORING REPORT IN PATIENT CONCEPCION: No Instructions: Muscle Cramps and Spasms, [id number] Forms: ED Department Discharge Additional Instructions: gatorade, increase fluids decrease use of benadryl/diphenhydramine ativan 0.5mg one every 4 hours as needed for spasm tonight then at bed as needed #7 Follow up with primary care on Saturday if not resolving change position slowly Sepsis Event Note (ED) - Evaluation Sepsis Screening Result: No Definite Risk - Focused Exam Vital Signs: Vital Signs Temp Pulse Resp BP Pulse Ox 01/26/21 01:21 99.1 F 72 16 158/74 H 97 01/26/21 00:30 78 18 143/90 H 96 01/25/21 23:57 98.8 F 94 18 172/80 H 99
[2021-01-26 01:09] LABS: ANION GAP 16.5 mEq/L (7-13); CHLORIDE,CL 92 mmol/L (98-107); SODIUM,NA 128 mmol/L (136-145)
[2021-01-26 01:22] VITALS: BP 158/74; PULSE 72
[2021-01-26] MEDS ORDERED: LORazepam 0.5 MG Tab ONE (01:26)
== END 2021-01-26 01:35 | disposition home or self-care (01) ==
LOC: DL.ED 23:38
DX: R25.2 Cramp and spasm (principal); I10 Essential (primary) hypertension; K21.9 Gastro-esophageal reflux disease without esophagitis; M19.90 Unspecified osteoarthritis, unspecified site; Z72.0 Tobacco use; Z88.6 Allergy status to analgesic agent; Z88.8 Allergy status to other drugs, medicaments and biological substances; Z79.899 Other long term (current) drug therapy
CPT/HCPCS: 36415; 80053; 83735; 85025; 86140; 99283; A9270-GY

== ENCOUNTER 2021-03-25 00:55 | Observation (INO) | payer MEDICARE, BC ==
[2021-03-25] MEDS ORDERED: fentaNYL 100 MCG/2 ML SDV IVPUSH ONE (01:10)
[2021-03-25] MEDS ORDERED: LORazepam 2 MG/ML SDV IVPUSH ONE ×2 (01:20→02:35)
[2021-03-25 01:46] LABS: ANION GAP 15.6 mEq/L (7-13); CHLORIDE,CL 86 mmol/L (98-107); SODIUM,NA 120 mmol/L (136-145)
[2021-03-25] MEDS ORDERED: Sodium Chloride 0.9% 1,000 ML IV ONE (02:00)
[2021-03-25] MEDS ORDERED: Acetaminophen/oxyCODONE 325-5 MG Tab PO ONE (02:08)
--- NOTE | 2021-03-25 02:39 | EDM.PDOC ---
ED HPI GENERAL MEDICAL PROBLEM - General Chief Complaint: General Stated Complaint: BOTH LEGS CRAMPS Time Seen by Provider: 03/25/21 01:35 Source of Information: Reports: Patient History Limitations: Reports: No Limitations - History of Present Illness INITIAL COMMENTS - FREE TEXT/NARRATIVE: ED wit c/o severe cramps in lower leg for past 3 days, now everything hurts and has not slept. No fever chills. No vomiting. No exposure known . Similar episode 2-3 months ago. Generalized Pain Score (Numeric/FACES): 10 Back Pain Score (Numeric/FACES): 6 - Related Data Allergies Allergy/AdvReac Type Severity Reaction Status Date / Time propoxyphene Allergy Unknown Cannot Verified 03/25/21 01:39 Remember cetirizine Allergy UNKNOWN Verified 03/25/21 01:39 ketorolac [From Toradol] AdvReac Headache Verified 03/25/21 01:39 Home Meds: Home Meds Cyanocobalamin (Vitamin B-12) [Cyanocobalamin Injection] 1 ml IM ASDIRECTED 03/19/16 [History] Acetaminophen [Tylenol Arthritis] 650 mg PO Q6H PRN 12/22/20 [History] Albuterol Sulfate [Albuterol Sulfate HFA] 2 puff INH Q4H PRN 12/22/20 [History] Doxylamine Succinate [Unisom] 25 mg PO BEDTIME PRN 12/22/20 [History] Gabapentin [Neurontin] 400 mg PO TID 12/22/20 [History] Omeprazole 20 mg PO DAILY 12/22/20 [History] Venlafaxine HCl [Venlafaxine ER] 75 mg PO DAILY 12/22/20 [History] amLODIPine [Norvasc] 5 mg PO DAILY 12/22/20 [History] diphenhydrAMINE [Benadryl] 25 mg PO DAILY PRN 12/22/20 [History] diphenhydrAMINE HCL [Diphenhydramine HCl] 50 mg PO BEDTIME 12/27/20 [History] Albuterol [Proventil HFA] 0 gm INH Q4H PRN inhaler 01/04/21 [Rx] Docusate Sodium/Sennosides [Senna Plus] 1 tab PO DAILY 14 Days #28 tablet 01/04/21 [Rx] Ergocalciferol (Vitamin D2) [Vitamin D2] 1.25 mg PO Q7D cap 01/04/21 [Rx] bisacodyL [Dulcolax] 5 mg PO DAILY PRN tablet 01/04/21 [Rx] diphenhydrAMINE [Benadryl] 25 mg PO BID PRN tablet 01/04/21 [Rx] oxyCODONE 5 mg PO Q6H PRN 14 Days #60 01/04/21 [Rx] oxyCODONE 5 mg PO Q6HR PRN 7 Days #0 tablet 01/04/21 [Rx] oxyCODONE ER [OxyCONTIN] 10 mg PO Q12HR 14 Days #28 tab.er 01/04/21 [Rx] Past Medical History HEENT History: Reports: Impaired Vision Cardiovascular History: Reports: Hypertension Respiratory History: Reports: TB Gastrointestinal History: Reports: GERD 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 Psychiatric History: Reports: Depression Endocrine/Metabolic History: Reports: Osteoporosis Hematologic History: Reports: B12 Deficiency Immunologic History: Reports: None Oncologic (Cancer) History: Reports: None Dermatologic History: Reports: Psoriasis, Other (See Below) Other Dermatologic History: fungal infection on feet. Small nickel size ulcer beside left outer ankle. Small blister to 4th toe on left foot. - Infectious Disease History Infectious Disease History: Reports: TB - Past Surgical History HEENT Surgical History: Reports: Adenoidectomy, Tonsillectomy GI Surgical History: Reports: Colonoscopy, EGD Other GI Surgeries/Procedures: patient states it was quite awhile ago. Musculoskeletal Surgical History: Reports: Joint Replacement, Knee Replacement, Shoulder Replacement, Shoulder Surgery, Other (See Below) Other Musculoskeletal Surgeries/Procedures:: right knee replacement on June 30, 2018. Spinal fusion. Social & Family History - Family History Family Medical History: No Pertinent Family History HEENT: Reports: Cataract - Tobacco Use Tobacco Use Status *Q: Current Every Day Tobacco User Years of Tobacco use: 56 Packs/Tins Daily: 1 - Caffeine Use Caffeine Use: Reports: Coffee Other Caffeine Use: Up to "4 pots of coffee" daily. - Living Situation & Occupation Living situation: Reports: , with Spouse Occupation: Retired ED ROS GENERAL - Review of Systems Review Of Systems: Comprehensive ROS is negative, except as noted in HPI. ED EXAM, GENERAL - Physical Exam Exam: See Below Exam Limited By: No Limitations General Appearance: Alert, Moderate Distress Eye Exam: Bilateral Eye: EOMI Ears: Normal External Exam, Hearing Grossly Normal Nose: Normal Inspection Throat/Mouth: Normal Inspection Head: Atraumatic, Normocephalic Neck: Carotid Bruit Respiratory/Chest: No Respiratory Distress, Lungs Clear, Normal Breath Sounds Cardiovascular: Normal Peripheral Pulses, Regular Rate, Rhythm GI/Abdominal: Normal Bowel Sounds Extremities: Normal Range of Motion Neurological: Alert, Normal Cognition, Abnormal Gait Psychiatric: Anxious, Other (restless) Skin Exam: Warm, Dry, Intact, Normal Color Course - Vital Signs Last Recorded V/S: Last Vital Signs Temp 98 F 03/26/21 04:30 Pulse 80 03/26/21 04:30 Resp 20 03/26/21 04:30 BP 167/66 H 03/26/21 04:30 Pulse Ox 100 03/26/21 04:30 - Orders/Labs/Meds Orders: Medication Orders Acetaminophen (Acetaminophen 325 Mg Tab) 650 mg PO Q6H PRN PRN Reason: Pain Last Admin: 03/26/21 01:40 Dose: 650 mg Documented by: Admin: 03/25/21 15:47 Dose: 650 mg Documented by: MIKAELA Amlodipine Besylate (Amlodipine 5 Mg Tab) [address] [facility] Last Admin: 03/25/21 08:34 Dose: 5 mg Documented by: MIKAELA Bisacodyl (Bisacodyl 5 Mg Tab) 5 mg PO DAILY PRN PRN Reason: Constipation, use second Cyanocobalamin (Cyanocobalamin (Vitamin B12) 1,000 Mcg/Ml Sdv) mcg IM ASDIRECTED [facility] Cyclobenzaprine HCl (Cyclobenzaprine 10 Mg Tab) 10 mg PO Q8H PRN PRN Reason: muscle cramps Last Admin: 03/25/21 22:19 Dose: 10 mg Documented by: Admin: 03/25/21 12:45 Dose: 10 mg Documented by: MIKAELA Diphenhydramine HCl (Diphenhydramine 50 Mg Cap) [address] [facility] Last Admin: 03/25/21 20:05 Dose: 50 mg Documented by: IRVING Enoxaparin Sodium (Enoxaparin 40 Mg/0.4 Ml Syringe) [address] [facility] Last Admin: 03/26/21 05:52 Dose: 40 mg Documented by: Admin: 03/25/21 06:26 Dose: 40 mg Documented by: DAVON Ergocalciferol (Ergocalciferol (Vitamin D2) 1.25 Mg Cap) 1.[address] [facility] Gabapentin (Gabapentin 400 Mg Cap) [address] [facility] Last Admin: 03/25/21 20:04 Dose: 400 mg Documented by: Admin: 03/25/21 14:28 Dose: 400 mg Documented by: Admin: 03/25/21 08:36 Dose: 400 mg Documented by: MIKAELA Sodium Chloride (Normal Saline) 1,000 mls @ 100 mls/hr IV ASDIRECTED [facility] Last Admin: 03/26/21 01:00 Dose: 100 mls/hr Documented by: Infusion: 03/26/21 01:00 Dose: 100 mls/hr Documented by: Admin: 03/25/21 16:10 Dose: 100 mls/hr Documented by: Infusion: 03/25/21 16:09 Dose: 100 mls/hr Documented by: Admin: 03/25/21 06:22 Dose: 100 mls/hr Documented by: DAVON Morphine Sulfate (Morphine 2 Mg/Ml Syringe) 2 mg IVPUSH Q2H PRN PRN Reason: Pain (severe 7-10) Last Admin: 03/25/21 22:18 Dose: 2 mg Documented by: ERICROX Omeprazole (Omeprazole 20 Mg Cap.Cr) [address] [facility] Last Admin: 03/26/21 05:50 Dose: 20 mg Documented by: Admin: 03/25/21 06:26 Dose: 20 mg Documented by: DAVON Ondansetron HCl (Ondansetron 4 Mg/2 Ml Sdv) 4 mg IVPUSH Q4H PRN PRN Reason: Nausea/Vomiting Oxycodone HCl (Oxycodone Er 10 Mg Tab.Er) [address] [facility] Last Admin: 03/25/21 20:04 Dose: 10 mg Documented by: IRVING Oxycodone HCl (Oxycodone 5 Mg Tab) 5 mg PO Q6H PRN PRN Reason: Pain Last Admin: 03/26/21 05:51 Dose: 5 mg Documented by: Admin: 03/26/21 00:05 Dose: 5 mg Documented by: Admin: 03/25/21 17:39 Dose: 5 mg Documented by: MIKAELA Senna/Docusate Sodium (Docusate Sodium/Sennosides 50-8.6 Mg Tab) [address] [facility] Last Admin: 03/25/21 08:34 Dose: 1 tab Documented by: MIKAELA Sodium Chloride (Sodium Chloride 0.9% 10 Ml Syringe) 10 ml FLUSH 0900,2100 [facility] Last Admin: 03/25/21 20:07 Dose: Not Given Documented by: Admin: 03/25/21 08:37 Dose: 10 ml Documented by: MIKAELA Labs: Laboratory Tests 03/25/21 03/25/21 03/25/21 Range/Units 01:20 01:20 01:20 WBC 5.5 (5.0-10.0) 10^3/uL RBC 4.29 (4.2-5.4) 10^6/uL Hgb 11.7 L D (12.0-16.0) g/dL Hct 35.2 L (37.0-47.0) % MCV 82.1 (80-100) fL MCH 27.3 (27.0-34.0) pg MCHC 33.2 (33.0-35.0) g/dL Plt Count 440 D (150-450) 10^3/uL Neut % (Auto) 59.9 (42.2-75.2) % Lymph % (Auto) 31.8 (20.5-50.1) % Estill % (Auto) 6.3 (2-8) % Eos % (Auto) 1.6 (1.0-3.0) % Baso % (Auto) 0.4 (0.0-1.0) % Sodium 120 L (136-145) mmol/L Potassium 3.6 (3.5-5.1) mmol/L Chloride 86 L (98-107) mmol/L Carbon Dioxide 22 (21-32) mmol/L Anion Gap 15.6 H (7-13) mEq/L BUN 8 (7-18) mg/dL Creatinine 0.78 (0.55-1.02) mg/dL Est Cr Clr Drug Dosing 45.75 mL/min Estimated GFR (MDRD) > 60 BUN/Creatinine Ratio 10.3 (No establ ref range) Glucose 88 (70-99) mg/dL Calcium 8.8 (8.5-10.1) mg/dL Magnesium 1.7 L (1.8-2.4) mg/dL Total Bilirubin 0.3 (0.2-1.0) mg/dL AST 44 H (15-37) U/L ALT 26 (14-59) U/L Alkaline Phosphatase 599 H (46-116) U/L Total Protein 8.9 H (6.4-8.2) g/dL Albumin 3.5 (3.4-5.0) g/dL Globulin 5.4 Albumin/Globulin Ratio 0.6 Ethyl Alcohol < 3 (0) mg/dL Influenza Type A RNA (NEGATIVE) Influenza Type B RNA (NEGATIVE) SARS-CoV-2 RNA (DIEGO) (NEGATIVE) 03/25/21 Range/Units 02:17 WBC (5.0-10.0) 10^3/uL RBC (4.2-5.4) 10^6/uL Hgb (12.0-16.0) g/dL Hct (37.0-47.0) % MCV (80-100) fL MCH (27.0-34.0) pg MCHC (33.0-35.0) g/dL Plt Count (150-450) 10^3/uL Neut % (Auto) (42.2-75.2) % Lymph % (Auto) (20.5-50.1) % Estill % (Auto) (2-8) % Eos % (Auto) (1.0-3.0) % Baso % (Auto) (0.0-1.0) % Sodium (136-145) mmol/L Potassium (3.5-5.1) mmol/L Chloride (98-107) mmol/L Carbon Dioxide (21-32) mmol/L Anion Gap (7-13) mEq/L BUN (7-18) mg/dL Creatinine (0.55-1.02) mg/dL Est Cr Clr Drug Dosing mL/min Estimated GFR (MDRD) BUN/Creatinine Ratio (No establ ref range) Glucose (70-99) mg/dL Calcium (8.5-10.1) mg/dL Magnesium (1.8-2.4) mg/dL Total Bilirubin (0.2-1.0) mg/dL AST (15-37) U/L ALT (14-59) U/L Alkaline Phosphatase (46-116) U/L Total Protein (6.4-8.2) g/dL Albumin (3.4-5.0) g/dL Globulin Albumin/Globulin Ratio Ethyl Alcohol (0) mg/dL Influenza Type A RNA Negative (NEGATIVE) Influenza Type B RNA Negative (NEGATIVE) SARS-CoV-2 RNA (DIEGO) Negative (NEGATIVE) Meds: Medications Generic Name Dose Route Start Last Admin Trade Name Freq PRN Reason Stop Dose Admin Acetaminophen 650 mg 03/25/21 15:40 03/26/21 01:40 Acetaminophen 325 Mg Tab PO 650 mg Q6H PRN Administration Pain Amlodipine Besylate 5 mg 03/25/21 09:00 03/25/21 08:34 Amlodipine 5 Mg Tab PO 5 mg DAILY MAE Administration Bisacodyl 5 mg 03/25/21 05:31 Bisacodyl 5 Mg Tab PO DAILY PRN Constipation, use second Cyanocobalamin mcg 03/25/21 05:45 Cyanocobalamin (Vitamin B12) 1,000 Mcg/Ml Sdv IM ASDIRECTED [facility]E Cyclobenzaprine HCl 10 mg 03/25/21 05:39 03/25/21 22:19 Cyclobenzaprine 10 Mg Tab PO 10 mg Q8H PRN Administration muscle cramps Diphenhydramine HCl 50 mg 03/25/21 21:00 03/25/21 20:05 Diphenhydramine 50 Mg Cap PO 50 mg BEDTIME MAE Administration Enoxaparin Sodium 40 mg 03/25/21 06:00 03/26/21 05:52 Enoxaparin 40 Mg/0.4 Ml Syringe SUBCUT 40 mg Q24H MAE Administration Ergocalciferol 1.25 mg 03/25/21 05:45 Ergocalciferol (Vitamin D2) 1.[address] [facility] Gabapentin 400 mg 03/25/21 09:00 03/25/21 20:04 Gabapentin 400 Mg Cap PO 400 mg TID MAE Administration Sodium Chloride 1,000 mls @ 100 mls/hr 03/25/21 06:15 03/26/21 01:00 Normal Saline IV 100 mls/hr ASDIRECTED MAE Administration Morphine Sulfate 2 mg 03/25/21 05:26 03/25/21 22:18 Morphine 2 Mg/Ml Syringe IVPUSH 2 mg Q2H PRN Administration Pain (severe 7-10) Omeprazole 20 mg 03/25/21 06:00 03/26/21 05:50 Omeprazole 20 Mg Cap.Cr PO 20 mg ACBREAKFAST MAE Administration Ondansetron HCl 4 mg 03/25/21 05:26 Ondansetron 4 Mg/2 Ml Sdv IVPUSH Q4H PRN Nausea/Vomiting Oxycodone HCl 10 mg 03/25/21 21:00 03/25/21 20:04 Oxycodone Er 10 Mg Tab.Er PO 10 mg Q12HR MAE Administration Oxycodone HCl 5 mg 03/25/21 17:31 03/26/21 05:51 Oxycodone 5 Mg Tab PO 5 mg Q6H PRN Administration Pain Senna/Docusate Sodium 1 tab 03/25/21 09:00 03/25/21 08:34 Docusate Sodium/Sennosides 50-8.6 Mg Tab PO 1 tab DAILY [facility]E Administration Sodium Chloride 10 ml 03/25/21 09:00 03/25/21 20:07 Sodium Chloride 0.9% 10 Ml Syringe FLUSH Not Given 0900,2100 [facility]E Discontinued Medications Generic Name Dose Route Start Last Admin Trade Name Freq PRN Reason Stop Dose Admin Fentanyl 25 mcg 03/25/21 01:10 03/25/21 01:24 Fentanyl 100 Mcg/2 Ml Sdv IVPUSH 03/25/21 01:11 25 mcg ONETIME ONE Administration Protocol Sodium Chloride 1,000 mls @ 75 mls/hr 03/25/21 02:00 03/25/21 02:16 Normal Saline IV 03/25/21 15:19 75 mls/hr .BOLUS ONE Administration Magnesium Sulfate 2 gm/ Premix 50 mls @ 25 mls/hr 03/25/21 05:20 03/25/21 06:15 IV 03/25/21 07:19 25 mls/hr ONETIME ONE Administration Lorazepam 1 mg 03/25/21 01:20 03/25/21 01:25 Lorazepam 2 Mg/Ml Sdv IVPUSH 03/25/21 01:21 1 mg ONETIME ONE Administration Lorazepam 1 mg 03/25/21 02:35 03/25/21 02:44 Lorazepam 2 Mg/Ml Sdv IVPUSH 03/25/21 02:36 1 mg ONETIME ONE Administration Non-Formulary Medication 25 mg 03/25/21 05:31 Doxylamine Succinate [Unisom] PO BEDTIME PRN Sleep Oxycodone/Acetaminophen 1 tab 03/25/21 02:08 03/25/21 02:16 Acetaminophen/Oxycodone 325-5 Mg Tab PO 03/25/21 02:09 1 tab ONETIME ONE Administration Potassium Chloride 40 meq 03/25/21 05:19 03/25/21 06:18 Potassium Chloride 10 Meq Tab.Er PO 03/25/21 05:20 40 meq ONETIME ONE Administration Potassium Chloride 40 meq 03/25/21 12:00 03/25/21 12:44 Potassium Chloride 10 Meq Tab.Er PO 03/25/21 12:01 40 meq ONETIME ONE Administration Potassium Chloride 40 meq 03/25/21 18:00 03/25/21 17:39 Potassium Chloride 10 Meq Tab.Er PO 03/25/21 18:01 40 meq ONETIME ONE Administration Departure - Departure Time of Disposition: 04:35 Disposition: Refer to Observation Condition: Fair Clinical Impression: Hyponatremia, Muscle spasm, Opiate withdrawal, Hx of spinal fusion - Discharge Information Sepsis Event Note (ED) - Evaluation Sepsis Screening Result: No Definite Risk
[2021-03-25 02:58] LABS: CORONAVIRUS COVID-19 NAA NEGATIVE (NEGATIVE)
[2021-03-25] MEDS ORDERED: Potassium Chloride 10 MEQ Tab.ER PO ONE ×4 (05:19→18:00)
[2021-03-25] MEDS ORDERED: Magnesium Sulfate/Water 2 GM in Premix Bag 1 BAG IV ONE (05:20)
[2021-03-25] MEDS ORDERED: Morphine 2 MG/ML SYRINGE IVPUSH PRN (05:26)
[2021-03-25] MEDS ORDERED: Ondansetron 4 MG/2 ML SDV IVPUSH PRN (05:26)
[2021-03-25] MEDS ORDERED: Bisacodyl 5 MG Tab PO PRN (05:31)
[2021-03-25] MEDS ORDERED: DOXYLAMINE SUCCINATE 25 MG PO PRN (05:31)
[2021-03-25] MEDS ORDERED: Ergocalciferol (Vitamin D2) 1.25 MG Cap PO SCH (05:45)
[2021-03-25] MEDS ORDERED: Cyanocobalamin (Vitamin B12) 1,000 MCG/ML SDV IM SCH (05:45)
[2021-03-25] MEDS: Sodium Chloride 0.9% 1,000 ML IV SCH ×2 (06:22→16:10)
[2021-03-25] MEDS: Omeprazole 20 MG Cap.CR PO SCH (06:26)
[2021-03-25] MEDS: Enoxaparin 40 MG/0.4 ML Syringe SUBCUT SCH (06:26)
[2021-03-25 06:54] LABS: ANION GAP 14.3 mEq/L (7-13); CHLORIDE,CL 93 mmol/L (98-107); SODIUM,NA 128 mmol/L (136-145)
--- NOTE | 2021-03-25 08:17 | CR ---
PROCEDURE INFORMATION: Exam: XR Chest Exam date and time: 03/25/2021 7:10 AM Age: 70 years old Clinical indication: Other: Elevated alk phos, long time smoker TECHNIQUE: Imaging protocol: XR of the chest. Views: 1 view. COMPARISON: CR Chest 2V 11/05/2014 3:02 PM FINDINGS: Lungs: There is again mild coarsening of the lung markings with minor bibasilar atelectasis and scarring. No new consolidation. Pleural spaces: Unremarkable. No pleural effusion. No pneumothorax. Heart/Mediastinum: Unremarkable. No cardiomegaly. Bones/joints: Bilateral shoulder prostheses are again present. There is again hardware in the cervical spine. Degenerative changes again involve the spine. IMPRESSION: No evidence for acute pulmonary disease.
[2021-03-25] MEDS: amLODIPine 5 MG Tab PO SCH (08:34)
[2021-03-25] MEDS: Gabapentin 400 MG Cap PO SCH ×3 (08:36→20:04)
[2021-03-25] MEDS: Sodium Chloride 0.9% 10 ML Syringe FLUSH SCH ×2 (08:37→20:07)
[2021-03-25] MEDS: Cyclobenzaprine 10 MG Tab PO PRN ×2 (12:45→22:19)
[2021-03-25] MEDS: Acetaminophen 325 MG Tab PO PRN (15:47)
[2021-03-25] MEDS: oxyCODONE 5 MG Tab PO PRN (17:39)
[2021-03-25] MEDS: oxyCODONE ER 10 MG TAB.ER PO SCH (20:04)
[2021-03-25] MEDS ORDERED: diphenhydrAMINE 50 MG Cap PO SCH (21:00)
[2021-03-26] MEDS: oxyCODONE 5 MG Tab PO PRN ×2 (00:05→05:51)
[2021-03-26] MEDS: Sodium Chloride 0.9% 1,000 ML IV SCH ×2 (01:00→10:47)
[2021-03-26] MEDS: Acetaminophen 325 MG Tab PO PRN (01:40)
--- NOTE | 2021-03-26 04:21 | HP ---
HISTORY OF PRESENT ILLNESS: The patient presented to emergency room today during the night because of pain in bilateral lower extremities. Also, she reports pain all over her body. The patient states that she has cramps and pain throughout the body for the past 2 years and has difficulties walking. She is on oxycodone and OxyContin at home, but she ran out of this medication and she has severe pain. She was given on 01/04/2021, 60 tablets of oxycodone 5 mg p.o. q.6 hours p.r.n. and she is also on OxyContin 10 mg p.o. q.12 hours. She was given on 01/04/2021 tablets. She was diagnosed with monoclonal gammopathy of unknown significance and she is currently followed by Hematology and she was treated with IV iron in the clinic by her nurse practitioner, Lesia Painter under the supervision of Hematology at [facility]. The patient had back surgery with spacing of the vertebra in her lower back and this was done in November 2020. She has difficulty standing and she needs assist to walk to restroom. She reports muscle weakness in bilateral legs, and in right upper extremity generalized body pain. She has also multiple joint replacement and numbness about 5, 6, and 10 in bilateral lower extremities. PAST MEDICAL HISTORY: The patient has history of impaired vision, hypertension, history of tuberculosis, acid reflux. She has history of arthritis, chronic back pain, osteoporosis, and rheumatoid arthritis. She has a history of compression fractures, history of B12 deficiency, history of psoriasis, and fungal infection of the feet. PAST SURGICAL HISTORY: She is status post adenoidectomy, tonsillectomy, status post colonoscopy, and EGD. She is status post knee replacement 1-1/2 years ago, right knee and bilateral shoulder replacement. Right knee replacement was done on 06/30/2018 and she also is status post spinal fusion. FAMILY HISTORY: Noncontributory. The patient had a son who at age 35 of heart disease. SOCIAL HISTORY: She is a current everyday tobacco user. She smoked for 56 years. She drinks coffee and she is and lives with her spouse and currently she is retired. She retired in 2008. REVIEW OF SYSTEMS: 12-point review of system is negative except as in history of present illness. Also, she reports generalized weakness. PHYSICAL EXAMINATION: HEENT: Head is atraumatic. She has missing teeth. She has arcus senilis at both eyes. Skin: Dried and wrinkled on the face. General: She looks older than her stated age. Neck: Supple. No thyromegaly. No lymphadenopathy. Heart: S1, S2. Regular rhythm and rate. Positive systolic murmur. Lungs: Clear to auscultation bilateral. Abdomen: Soft, nontender. Positive bowel sounds. Extremities: No edema. The patient has generalized muscle weakness with decreased muscle strength in both hands and also both legs . Vital Signs: Temperature is 97.6, pulse 68, respiratory rate 18, blood pressure 164/90, and pulse 98. DIAGNOSTIC DATA: Laboratory data at admission, WBC 5.5, RBC 4.29, hematocrit 35.2, and platelet count 440. Sodium is 120, potassium 2.6, chloride 96, CO2 of 22, anion gap 15.5, BUN 8, creatinine 0.78, estimated creatinine clearance drug dosing 45.75, estimated GFR more than 60, glucose 88, calcium 8.8, magnesium 1.7, bilirubin 0.3, AST 44, ALT 26, alkaline phosphatase 599, total protein 8.9, albumin 3.5, globulin 5.4. The patient was given in the emergency room 1 L of fluid and she was also given for pain, fentanyl 25 mcg IV push one time, and lorazepam 1 mg IV push one time and another 1 mg IV push one time, and she was also given 1 tablet of acetaminophen/oxycodone p.o. Repeat blood work in the morning showed WBC of 4.9, hemoglobin 11.3, hematocrit 34.2, and platelet count of 308. ESR 25, sodium increased to 128, potassium 2.3, chloride 93, carbon dioxide 24, anion gap 14.3, BUN 7, creatinine 0.68, estimated creatinine clearance 51.51, BUN creatinine ratio was 10.3, glucose 87, calcium 8.5, phosphorus 2.4, iron 88, TIBC 219, percent saturation 40.2, ferritin 1177, total bilirubin 0.3, AST 44, alkaline phosphatase was in the morning 495 and creatine kinase 74. C-reactive protein 0.9. Influenza A and B were negative. SARS-CoV- 2 was negative. Chest x-ray was negative for acute disease and was normal. Findings on the chest x-ray were there is again mild coarsening of the lung markings with minor bibasilar atelectasis and scarring. No new consolidation. Pleural spaces unremarkable. No pleural effusion or pneumothorax. Heart and mediastinum unremarkable. No cardiomegaly. Bones, joints, bilateral shoulder prosthesis are again present. There is again hard to bear endocervical spine, degenerative changes again involving the spine. Impression: No evidence of acute pulmonary disease. ASSESSMENT: A 70-year-old female with history of monoclonal gammopathy of undetermined significance of unknown significance, presented to emergency room due to generalized body ache and pain and cramps in the legs. Also, the patient has chronic generalized weakness for the past 2 years and she needs assistance with walking and she walks also with a walker. She ran out of her oxycodone and OxyContin medication for pain. Laboratory data shows hyponatremia, hypokalemia, and hypomagnesemia, increased ferritin to 1177 and increased alkaline phosphatase to 599. At admission, inflammatory markers, ESR is 25, mildly above the upper limit and C-reactive protein is 0.9 which is normal. Monoclonal gammopathy of undetermined significance, generalized body ache due to opiate withdrawal and from the monoclonal gammopathy of undetermined significance, iron-deficiency anemia, hypertension, vitamin D deficiency, neuropathy, and gastroesophageal reflux disease. PLAN: We will admit the patient to telemetry and we will supplement potassium and magnesium with potassium chloride 40 mEq p.o. 1 dose and also we will supplement magnesium with magnesium sulfate 2 g IV one time and we will give the patient Flexeril 10 mg p.o. t.i.d. p.r.n. for muscle cramps. We will continue with Benadryl 50 mg p.o. at bedtime. For hypertension, we will monitor blood pressure and we will continue the patient with amlodipine 5 mg p.o. daily. For hyponatremia, we will give the patient sodium chloride IV at 100 mL/h and we will correct potassium level to bring it around 4 which will help correct the sodium level and we will monitor electrolytes. For vitamin B12 deficiency, we will give the patient vitamin B12 IV. For DVT prophylaxis, we will give patient Lovenox 40 mg subcutaneous q.24 hours. For vitamin D deficiency, we will give the patient vitamin D 1.25 mg p.o. q.weekly. For neuropathy, we will continue the patient with Neurontin 400 mg p.o. t.i.d. For bowel regimen, the patient is on Senna Plus 1 tablet p.o. daily. For MGUS and iron-deficiency anemia, the patient to follow up with her provider, Lesia Painter who works under the supervision of Hematology at [facility]. The patient is supposed to have an appointment in the coming week. I have discussed with Hematology at [facility] elevated Fahrenheit to 1177. It is due to MGUS or as a reaction to recent iron transfusion of the patient. MODL /[id number]
[2021-03-26] MEDS: Omeprazole 20 MG Cap.CR PO SCH (05:50)
[2021-03-26] MEDS: Enoxaparin 40 MG/0.4 ML Syringe SUBCUT SCH (05:52)
[2021-03-26] MEDS: Gabapentin 400 MG Cap PO SCH (08:35)
[2021-03-26] MEDS: oxyCODONE ER 10 MG TAB.ER PO SCH (08:35)
[2021-03-26] MEDS: amLODIPine 5 MG Tab PO SCH (08:35)
[2021-03-26] MEDS: Sodium Chloride 0.9% 10 ML Syringe FLUSH SCH (08:38)
[2021-03-26 09:20] LABS: ANION GAP 15.8 mEq/L (7-13); CHLORIDE,CL 103 mmol/L (98-107); SODIUM,NA 136 mmol/L (136-145)
[2021-03-26] MEDS ORDERED: oxyCODONE 5 MG Tab PO PRN (11:19)
[2021-03-26] MEDS ORDERED: diphenhydrAMINE 25 MG Tab PO PRN (11:19)
[2021-03-26] MEDS ORDERED: Albuterol 6.7 GM Inhaler INH PRN (11:19)
[2021-03-26 12:01] VITALS: BP 131/52; PULSE 93
[2021-03-26] MEDS ORDERED: DULoxetine 30 MG Cap PO SCH (12:30)
[2021-03-26] MEDS ORDERED: Venlafaxine 37.5 MG Cap.ER PO SCH (12:30)
--- NOTE | 2021-03-27 03:12 | DISCH ---
The patient is 70 years old, presented to emergency room on 03/25/2021 with complaints of pain in bilateral lower extremities and all over the body. The patient states that she has cramps and pain in the legs for the past 2 years and has difficulty walking. She was treated with oxycodone and OxyContin at home and she was given this medication by her PCP with whom she had pain contract. She denied she had a pain contract. She was given medication and on 03/16 60 tablet of oxycodone 5 mg during the hospital stay. When she arrived to inpatient, took more medication that she was supposed to take and she finished her medication at home. The patient states that she spoke with her PCP and she was told that she can take 2 tablets of oxycodone q.6 hours to control the pain. In the hospital, the patient was given Flexeril 10 mg p.o. t.i.d. p.r.n. for muscle spasms. Her labs show elevated ferritin at 1177. Discussed with the patient's research study assistant. The patient has monoclonal gammopathy of unknown significance and she is currently followed up by Hematology. She received 3 days ago and is supposed to get another dose of iron IV this week. The patient had back surgery with spacing of the vertebra in her lower back in 11/2020. She has difficulty standing and she needed to assist to go to restroom. She has multiple joint replacement and reports numbness, 5 and 10 bilateral lower extremities. External medications were reviewed and it was determined the patient had contact with her PCP and the patient was discharged from hospital due to the fact that she has pain contract with her PCP and she was advised to follow up with PCP on Saturday. In the hospital, she received oxycodone and OxyContin, and the patient was demanding opiates around the clock. She did not seem to be in severe pain when she was asking for medication. Vital signs; temperature 98, pulse 80, blood pressure 167/66, respiratory rate 20, and oxygen saturation 100. LABORATORY DATA AT DISCHARGE: Sodium 136, potassium 4.8, chloride 103, anion gap 15.8, creatinine 0.77, and estimated creatinine clearance 46.86, estimated GFR more than 60, glucose 77, calcium 8, and magnesium 1.8. Iron 88, TIBC 219, percent saturation 40.2, ferritin 1177, total protein 6.4, albumin 2.7, and globulin is 3.7. At admission, her sodium was 120, potassium 3.6, chloride 86, carbon dioxide 22, and magnesium 1.7. Alkaline phosphatase was 599 and it decreased to 542 on discharge. PHYSICAL EXAMINATION: HEENT: Head is atraumatic and normocephalic. Pupils are reactive to light. Neck: Supple. No thyromegaly. No lymphadenopathy. Heart: S1 and S2. Regular rhythm and rate. Positive murmur. Abdomen: Soft, nontender. Positive bowel sounds. Extremities: No edema. Neurologic: The patient alert and oriented x3. There are no gross focal neurologic deficits. DIAGNOSES AT DISCHARGE: Hyponatremia, hypokalemia, hypomagnesemia, body ache, probably opioid withdrawal, the patient undetermined significance and elevated alkaline phosphatase, iron deficiency anemia, hypertension, vitamin D deficiency, neuropathy, gastroesophageal reflux disease, and opiate addiction. [facility] /[id number]
== END 2021-03-26 13:30 | disposition home or self-care (01) ==
LOC: DL.ED 00:55 → DL.MS 04:42
PROVIDERS: ADMIT Internal Medicine; ATTEND Internal Medicine
DX: D47.2 Monoclonal gammopathy (principal); I10 Essential (primary) hypertension; K21.9 Gastro-esophageal reflux disease without esophagitis; M19.90 Unspecified osteoarthritis, unspecified site; M81.0 Age-related osteoporosis without current pathological fracture; M06.9 Rheumatoid arthritis, unspecified; F17.200 Nicotine dependence, unspecified, uncomplicated; E87.1 Hypo-osmolality and hyponatremia; E87.6 Hypokalemia; E83.42 Hypomagnesemia; Z79.899 Other long term (current) drug therapy; Z98.890 Other specified postprocedural states; Z20.822 Contact with and (suspected) exposure to COVID-19
CPT/HCPCS: 0240U; 36415; 71045; 80048; 80053; 80307; 82306; 82550; 82728; 83540; 83550; 83735; 84075; 84100; 85025; 85027; 85651; 86140; 93005; 96365; 96366; 96372; 96374; 96375; 96376; 99284-25; A9270-GY; G0378; J1650; J2060; J2270; J3010; J3475; J7030; Q0163

== ENCOUNTER 2021-11-27 19:03 | Inpatient (IN) | payer MEDICARE, BC ==
[2021-11-27] MEDS: Sodium Chloride 0.9% 1,000 ML IV ONE (20:45)
[2021-11-27 20:56] LABS: ANION GAP 17.7 mEq/L (7-13)
[2021-11-27] MEDS ORDERED: Iopamidol 755 Mg/ML 100 ML Bottle IVPUSH ONE (21:12)
[2021-11-27] MEDS ORDERED: Dexamethasone 4 MG/ML SDV IVPUSH ONE (22:29)
[2021-11-27] MEDS ORDERED: oxyCODONE 5 MG Tab PO ONE (22:45)
[2021-11-27] MEDS ORDERED: Gabapentin 400 MG Cap PO ONE (22:45)
[2021-11-27] MEDS ORDERED: Bisacodyl 5 MG Tab PO PRN (23:29)
[2021-11-27] MEDS ORDERED: Ondansetron 4 MG/2 ML SDV IVPUSH PRN (23:29)
[2021-11-27] MEDS ORDERED: Magnesium Hydroxide 400 MG/5 ML Susp 30 ML Cup PO PRN (23:29)
[2021-11-27] MEDS ORDERED: Morphine 2 MG/ML SYRINGE IVPUSH PRN (23:29)
[2021-11-27] MEDS ORDERED: Albuterol/Ipratropium 3.0-0.5 MG/3 ML Neb Soln NEB PRN (23:29)
[2021-11-27] MEDS ORDERED: Polyethylene Glycol 3350 Powder 17 GM Packet PO PRN (23:29)
[2021-11-27] MEDS ORDERED: Glucagon,Human Recombinant 1 MG Vial IM PRN (23:33)
[2021-11-27] MEDS ORDERED: 50% Dextrose in Water 50 ML Syringe IVPUSH PRN (23:33)
[2021-11-27] MEDS ORDERED: cefTRIAXone 1 GM in Sodium Chloride 0.9% 50 ML IV ONE (23:34)
[2021-11-27] MEDS ORDERED: Azithromycin 500 MG in Sodium Chloride 0.9% 250 ML IV ONE (23:35)
[2021-11-27] MEDS ORDERED: REMDESIVIR 200 MG in Sodium Chloride 0.9% 250 ML IV ONE (23:36)
[2021-11-27] MEDS ORDERED: Metoprolol Tartrate 5 MG/5 ML SDV IVPUSH PRN ×2 (23:38→23:51)
[2021-11-27] MEDS ORDERED: hydrALAZINE 20 MG/ML SDV IVPUSH PRN ×2 (23:38→23:55)
[2021-11-27] MEDS ORDERED: Flumazenil 0.1 MG/ML 5 ML MDV IVPUSH PRN (23:51)
[2021-11-28] MEDS: LORazepam 2 MG/ML SDV IVPUSH PRN ×2 (02:21→21:52)
[2021-11-28] MEDS: oxyCODONE 5 MG Tab PO PRN ×4 (07:31→20:56)
[2021-11-28] MEDS: Sodium Chloride 0.9% 1,000 ML IV ONE (07:40)
[2021-11-28] MEDS: Insulin Lispro 100 Units/ML 3 ML Vial SUBCUT SCH ×3 (07:42→16:40)
[2021-11-28 08:17] LABS: ANION GAP 17.9 mEq/L (7-13)
[2021-11-28] MEDS: cefTRIAXone 1 GM in Sodium Chloride 0.9% 50 ML IV SCH (08:32)
[2021-11-28] MEDS: Enoxaparin 40 MG/0.4 ML Syringe SUBCUT SCH (08:32)
[2021-11-28] MEDS: Saccharomyces Boulardii (Probiotic) 250 MG Cap PO SCH ×2 (08:32→20:55)
[2021-11-28] MEDS: Azithromycin 250 MG in Sodium Chloride 0.9% 250 ML IV SCH (09:16)
[2021-11-28] MEDS: REMDESIVIR 100 MG in Sodium Chloride 0.9% 100 ML IV SCH (11:44)
[2021-11-28] MEDS ORDERED: Magnesium Sulfate/Water 2 GM in Premix Bag 1 BAG IV ONE (13:28)
[2021-11-28] MEDS: Acetaminophen 325 MG Tab PO PRN (14:19)
[2021-11-28] MEDS ORDERED: DOXYLAMINE SUCCINATE 25 MG PO PRN (21:49)
[2021-11-28] MEDS ORDERED: Gabapentin 400 MG Cap PO ONE (22:15)
[2021-11-28] MEDS ORDERED: diphenhydrAMINE 50 MG/ML SDV IVPUSH ONE (22:16)
[2021-11-29] MEDS: HYDROmorphone 0.5 MG/0.5 ML Syringe IVPUSH PRN ×3 (02:17→21:35)
[2021-11-29] MEDS: oxyCODONE 5 MG Tab PO PRN ×3 (04:36→16:48)
[2021-11-29 07:07] LABS: ANION GAP 15.7 mEq/L (7-13); CHLORIDE,CL 108 mmol/L (98-107); ESTIMATED GFR 66 mL/min (>=60); SODIUM,NA 139 mmol/L (136-145)
[2021-11-29] MEDS: Insulin Lispro 100 Units/ML 3 ML Vial SUBCUT SCH ×3 (07:50→16:33)
[2021-11-29] MEDS: cefTRIAXone 1 GM in Sodium Chloride 0.9% 50 ML IV SCH (08:54)
[2021-11-29] MEDS ORDERED: Ergocalciferol (Vitamin D2) 1.25 MG Cap PO SCH (09:00)
[2021-11-29] MEDS: Enoxaparin 40 MG/0.4 ML Syringe SUBCUT SCH (09:01)
[2021-11-29] MEDS: Acetaminophen 325 MG Tab PO PRN ×3 (09:01→20:24)
[2021-11-29] MEDS: DULoxetine 30 MG Cap PO SCH (09:01)
[2021-11-29] MEDS: Saccharomyces Boulardii (Probiotic) 250 MG Cap PO SCH ×2 (09:02→20:26)
[2021-11-29] MEDS: Gabapentin 400 MG Cap PO SCH ×3 (09:02→20:26)
[2021-11-29] MEDS: amLODIPine 5 MG Tab PO SCH (09:03)
[2021-11-29] MEDS: Azithromycin 250 MG in Sodium Chloride 0.9% 250 ML IV SCH (09:27)
[2021-11-29] MEDS: REMDESIVIR 100 MG in Sodium Chloride 0.9% 100 ML IV SCH (12:18)
[2021-11-30] MEDS: oxyCODONE 5 MG Tab PO PRN ×4 (00:03→21:18)
[2021-11-30] MEDS: diphenhydrAMINE 25 MG Tab PO PRN ×2 (00:58→10:06)
[2021-11-30 07:06] LABS: ANION GAP 14.8 mEq/L (7-13); CHLORIDE,CL 102 mmol/L (98-107); SODIUM,NA 134 mmol/L (136-145)
[2021-11-30 07:07] LABS: ESTIMATED GFR 91 mL/min (>=60)
[2021-11-30] MEDS: Insulin Lispro 100 Units/ML 3 ML Vial SUBCUT SCH ×2 (07:32→11:32)
[2021-11-30] MEDS ORDERED: Magnesium Sulfate/Water 2 GM in Premix Bag 1 BAG IV ONE (07:53)
[2021-11-30] MEDS ORDERED: Azithromycin 250 MG in Sodium Chloride 0.9% 250 ML IV SCH (09:00)
[2021-11-30] MEDS: Saccharomyces Boulardii (Probiotic) 250 MG Cap PO SCH ×2 (10:04→21:17)
[2021-11-30] MEDS: DULoxetine 30 MG Cap PO SCH (10:05)
[2021-11-30] MEDS: Ciprofloxacin 500 MG Tab PO SCH ×2 (10:05→21:18)
[2021-11-30] MEDS: Gabapentin 400 MG Cap PO SCH ×3 (10:05→21:18)
[2021-11-30] MEDS: amLODIPine 5 MG Tab PO SCH (10:06)
[2021-11-30] MEDS: Enoxaparin 40 MG/0.4 ML Syringe SUBCUT SCH (10:07)
[2021-11-30] MEDS: Acetaminophen 325 MG Tab PO PRN (10:13)
[2021-11-30] MEDS: Polyvinyl Alcohol 1.4% Ophth Soln 15 ML Bottle EYEBOTH SCH (21:17)
[2021-12-01] MEDS: oxyCODONE 5 MG Tab PO PRN (03:54)
[2021-12-01] MEDS: diphenhydrAMINE 25 MG Tab PO PRN (04:32)
[2021-12-01 07:16] LABS: ANION GAP 11.5 mEq/L (7-13)
[2021-12-01 08:01] VITALS: BP 116/59; PULSE 72
[2021-12-01] MEDS: Saccharomyces Boulardii (Probiotic) 250 MG Cap PO SCH (08:32)
[2021-12-01] MEDS: Gabapentin 400 MG Cap PO SCH (08:32)
[2021-12-01] MEDS: DULoxetine 30 MG Cap PO SCH (08:32)
[2021-12-01] MEDS: amLODIPine 5 MG Tab PO SCH (08:32)
[2021-12-01] MEDS: Enoxaparin 40 MG/0.4 ML Syringe SUBCUT SCH (08:33)
[2021-12-01] MEDS: Ciprofloxacin 500 MG Tab PO SCH (08:33)
[2021-12-01] MEDS: Polyvinyl Alcohol 1.4% Ophth Soln 15 ML Bottle EYEBOTH SCH (08:33)
[2021-12-01] MEDS ORDERED: Sodium Chloride 1 GM Tab PO SCH (09:00)
[2021-12-14] MEDS ORDERED: Cyanocobalamin (Vitamin B12) 1,000 MCG/ML SDV IM SCH (09:00)
== END 2021-12-01 10:22 | disposition swing bed (61) | DRG 177 ==
LOC: DL.ED 19:03 → DL.MS 22:07 → DL.ED 23:00 → DL.MS 23:07 → UNDOADMIN 23:07 → DL.MS 11-29 01:48 → UNDODISIN 12-01 10:22
PROVIDERS: ADMIT Internal Medicine; ATTEND Hospitalist
PROC: XW033E5 Introduction of Remdesivir Anti-infective into Peripheral Vein, Percutaneous Approach, New Technology Group 5 (ICD-10-PCS; principal; 2021-11-27)
DX: U07.1 COVID-19 (principal); R53.1 Weakness; N30.00 Acute cystitis without hematuria; D64.9 Anemia, unspecified; J12.82 Pneumonia due to coronavirus disease 2019; N17.9 Acute kidney failure, unspecified; F11.20 Opioid dependence, uncomplicated; N39.0 Urinary tract infection, site not specified; B96.20 Unspecified Escherichia coli [E. coli] as the cause of diseases classified elsewhere; F17.210 Nicotine dependence, cigarettes, uncomplicated; E55.9 Vitamin D deficiency, unspecified; E87.8 Other disorders of electrolyte and fluid balance, not elsewhere classified; D50.9 Iron deficiency anemia, unspecified; M06.9 Rheumatoid arthritis, unspecified; D63.8 Anemia in other chronic diseases classified elsewhere; E88.09 Other disorders of plasma-protein metabolism, not elsewhere classified; M48.062 Spinal stenosis, lumbar region with neurogenic claudication; M54.42 Lumbago with sciatica, left side; M54.41 Lumbago with sciatica, right side; I08.2 Rheumatic disorders of both aortic and tricuspid valves; I10 Essential (primary) hypertension; K21.9 Gastro-esophageal reflux disease without esophagitis; M19.90 Unspecified osteoarthritis, unspecified site; F32.A Depression, unspecified; H54.7 Unspecified visual loss; M81.0 Age-related osteoporosis without current pathological fracture; R74.8 Abnormal levels of other serum enzymes; Z88.1 Allergy status to other antibiotic agents; Z88.5 Allergy status to narcotic agent; Z88.8 Allergy status to other drugs, medicaments and biological substances; Z79.899 Other long term (current) drug therapy
CPT/HCPCS: 36415; 71045; 71260; 80053; 81001; 82150; 82248; 82272; 83605; 83690; 83735; 83880; 84484; 85025; 85379; 87086; 87088; 87186; 93005; 93010; 96361; 96374; 99284; 99285; J1100; J7030; Q9967; U0002; 51702; 70450; 82306; 82947; 84439; 84443; 85651; 86140; 97161-GP; 97165-GO; A9270-GY; J0456; J0696; J1170; J1200; J1650; J2060; J3475; J7050

== ENCOUNTER 2021-12-01 10:24 | Inpatient (IN) | payer MEDICARE, BC ==
[~2021-12-01 10:24] MED LIST: 50% Dextrose in Water 50 ML Syringe IVPUSH PRN; Albuterol/Ipratropium 3.0-0.5 MG/3 ML Neb Soln NEB PRN; Bisacodyl 5 MG Tab PO PRN; Glucagon,Human Recombinant 1 MG Vial IM PRN; Magnesium Hydroxide 400 MG/5 ML Susp 30 ML Cup PO PRN; Non-Formulary Medication 1 Each (Doxylamine Succinate [Unisom] 25 MG) PO PRN; Ondansetron 4 MG/2 ML SDV IVPUSH PRN; Polyethylene Glycol 3350 Powder 17 GM Packet PO PRN; hydrALAZINE 20 MG/ML SDV IVPUSH PRN
[2021-12-01] MEDS: Gabapentin 400 MG Cap PO SCH ×2 (13:16→20:34)
[2021-12-01] MEDS: oxyCODONE 5 MG Tab PO PRN ×2 (13:17→20:33)
[2021-12-01] MEDS: Polyvinyl Alcohol 1.4% Ophth Soln 15 ML Bottle EYEBOTH SCH ×2 (14:20→20:35)
[2021-12-01] MEDS: Acetaminophen 325 MG Tab PO PRN ×2 (15:26→22:45)
[2021-12-01] MEDS: Saccharomyces Boulardii (Probiotic) 250 MG Cap PO SCH (20:35)
[2021-12-01] MEDS: Sodium Chloride 1 GM Tab PO SCH (20:35)
[2021-12-01] MEDS ORDERED: Ciprofloxacin 500 MG Tab PO SCH (21:00)
[2021-12-01] MEDS: diphenhydrAMINE 25 MG Tab PO PRN (22:47)
[2021-12-02] MEDS: oxyCODONE 5 MG Tab PO PRN ×4 (01:02→17:38)
[2021-12-02] MEDS: Acetaminophen 325 MG Tab PO PRN ×4 (04:11→21:25)
[2021-12-02] MEDS: Sodium Chloride 1 GM Tab PO SCH ×2 (09:20→21:24)
[2021-12-02] MEDS: Saccharomyces Boulardii (Probiotic) 250 MG Cap PO SCH ×2 (09:20→21:25)
[2021-12-02] MEDS: Gabapentin 400 MG Cap PO SCH ×3 (09:20→21:24)
[2021-12-02] MEDS: DULoxetine 30 MG Cap PO SCH (09:20)
[2021-12-02] MEDS: Enoxaparin 40 MG/0.4 ML Syringe SUBCUT SCH (09:21)
[2021-12-02] MEDS: Polyvinyl Alcohol 1.4% Ophth Soln 15 ML Bottle EYEBOTH SCH ×3 (09:21→21:30)
[2021-12-02] MEDS: amLODIPine 5 MG Tab PO SCH (09:28)
[2021-12-02] MEDS: diphenhydrAMINE 25 MG Tab PO PRN (21:24)
[2021-12-03] MEDS: oxyCODONE 5 MG Tab PO PRN ×4 (02:51→20:40)
[2021-12-03] MEDS: diphenhydrAMINE 25 MG Tab PO PRN ×2 (07:13→20:39)
[2021-12-03] MEDS: Sodium Chloride 1 GM Tab PO SCH ×2 (09:48→20:39)
[2021-12-03] MEDS: Saccharomyces Boulardii (Probiotic) 250 MG Cap PO SCH ×2 (09:49→20:39)
[2021-12-03] MEDS: DULoxetine 30 MG Cap PO SCH (09:50)
[2021-12-03] MEDS: Gabapentin 400 MG Cap PO SCH ×3 (09:53→20:40)
[2021-12-03] MEDS: amLODIPine 5 MG Tab PO SCH (09:54)
[2021-12-03] MEDS: Polyvinyl Alcohol 1.4% Ophth Soln 15 ML Bottle EYEBOTH SCH (09:56)
[2021-12-03] MEDS: Enoxaparin 40 MG/0.4 ML Syringe SUBCUT SCH (09:57)
[2021-12-03] MEDS ORDERED: Polyvinyl Alcohol 1.4% Ophth Soln 15 ML Bottle EYEBOTH PRN (10:20)
[2021-12-03] MEDS: Carboxymethylcellulose Sodium 1% Ophth Gel 0.4 ML UD EYEBOTH SCH ×3 (10:30→20:40)
[2021-12-03] MEDS: Acetaminophen 325 MG Tab PO PRN (14:41)
[2021-12-04] MEDS: Acetaminophen 325 MG Tab PO PRN ×4 (01:12→21:32)
[2021-12-04] MEDS: oxyCODONE 5 MG Tab PO PRN ×4 (03:03→18:23)
[2021-12-04] MEDS: Carboxymethylcellulose Sodium 1% Ophth Gel 0.4 ML UD EYEBOTH SCH ×3 (08:02→21:32)
[2021-12-04] MEDS: Sodium Chloride 1 GM Tab PO SCH ×2 (10:08→21:31)
[2021-12-04] MEDS: Enoxaparin 40 MG/0.4 ML Syringe SUBCUT SCH (10:08)
[2021-12-04] MEDS: DULoxetine 30 MG Cap PO SCH (10:09)
[2021-12-04] MEDS: Nicotine 7 MG/24 Hr Patch TRDERM SCH (10:09)
[2021-12-04] MEDS: Gabapentin 400 MG Cap PO SCH ×3 (10:10→21:31)
[2021-12-04] MEDS: amLODIPine 5 MG Tab PO SCH (10:11)
[2021-12-04] MEDS: Saccharomyces Boulardii (Probiotic) 250 MG Cap PO SCH ×2 (10:13→21:31)
[2021-12-04] MEDS: diphenhydrAMINE 25 MG Tab PO PRN (21:31)
[2021-12-04] MEDS: Check Patch TRDERM SCH (21:33)
[2021-12-05] MEDS: oxyCODONE 5 MG Tab PO PRN ×4 (00:29→21:30)
[2021-12-05] MEDS: Acetaminophen 325 MG Tab PO PRN ×4 (06:19→22:56)
[2021-12-05] MEDS: Gabapentin 400 MG Cap PO SCH ×3 (08:53→21:30)
[2021-12-05] MEDS: DULoxetine 30 MG Cap PO SCH (08:53)
[2021-12-05] MEDS: amLODIPine 5 MG Tab PO SCH (08:54)
[2021-12-05] MEDS: Sodium Chloride 1 GM Tab PO SCH ×2 (08:54→21:30)
[2021-12-05] MEDS: Enoxaparin 40 MG/0.4 ML Syringe SUBCUT SCH (08:55)
[2021-12-05] MEDS: Nicotine 7 MG/24 Hr Patch TRDERM SCH (08:55)
[2021-12-05] MEDS: Carboxymethylcellulose Sodium 1% Ophth Gel 0.4 ML UD EYEBOTH SCH ×3 (08:55→21:32)
[2021-12-05] MEDS: Saccharomyces Boulardii (Probiotic) 250 MG Cap PO SCH (08:55)
[2021-12-05] MEDS: diphenhydrAMINE 25 MG Tab PO PRN ×2 (12:15→21:30)
[2021-12-05] MEDS: Check Patch TRDERM SCH (21:32)
[2021-12-06] MEDS: Acetaminophen 325 MG Tab PO PRN ×2 (02:41→08:24)
[2021-12-06] MEDS: oxyCODONE 5 MG Tab PO PRN (06:30)
[2021-12-06 08:07] VITALS: PULSE 87
[2021-12-06] MEDS: Sodium Chloride 1 GM Tab PO SCH (08:24)
[2021-12-06] MEDS: amLODIPine 5 MG Tab PO SCH (08:25)
[2021-12-06] MEDS: DULoxetine 30 MG Cap PO SCH (08:25)
[2021-12-06] MEDS: Gabapentin 400 MG Cap PO SCH (08:25)
[2021-12-06] MEDS: Nicotine 7 MG/24 Hr Patch TRDERM SCH (08:26)
[2021-12-06] MEDS: Enoxaparin 40 MG/0.4 ML Syringe SUBCUT SCH (08:26)
[2021-12-06] MEDS: Carboxymethylcellulose Sodium 1% Ophth Gel 0.4 ML UD EYEBOTH SCH (08:28)
[2021-12-06 08:29] VITALS: BP 117/57
[2021-12-06] MEDS: diphenhydrAMINE 25 MG Tab PO PRN (10:03)
== END 2021-12-06 10:15 | disposition home health service (06) | DRG 948 ==
LOC: DL.MS 10:24 → UNDOADMIN 10:24
PROVIDERS: ADMIT Hospitalist; ATTEND Hospitalist
DX: R53.1 Weakness (principal); E87.2 Acidosis; D63.8 Anemia in other chronic diseases classified elsewhere; D50.9 Iron deficiency anemia, unspecified; E87.8 Other disorders of electrolyte and fluid balance, not elsewhere classified; U09.9 Post COVID-19 condition, unspecified; R74.8 Abnormal levels of other serum enzymes; F17.210 Nicotine dependence, cigarettes, uncomplicated; E53.8 Deficiency of other specified B group vitamins; I10 Essential (primary) hypertension; I08.2 Rheumatic disorders of both aortic and tricuspid valves; M19.90 Unspecified osteoarthritis, unspecified site; M47.812 Spondylosis without myelopathy or radiculopathy, cervical region; M48.062 Spinal stenosis, lumbar region with neurogenic claudication; M54.16 Radiculopathy, lumbar region; Z96.651 Presence of right artificial knee joint; M81.0 Age-related osteoporosis without current pathological fracture; M43.10 Spondylolisthesis, site unspecified; G89.29 Other chronic pain; M06.9 Rheumatoid arthritis, unspecified; H54.7 Unspecified visual loss; K21.9 Gastro-esophageal reflux disease without esophagitis; F32.A Depression, unspecified; Z88.6 Allergy status to analgesic agent; Z88.5 Allergy status to narcotic agent; Z88.1 Allergy status to other antibiotic agents; Z79.899 Other long term (current) drug therapy; Z90.89 Acquired absence of other organs
CPT/HCPCS: 97161-GP; 97165-GO; 97530-GO; A9270-GY; J1650

== ENCOUNTER 2022-01-07 23:48 | Emergency (ER) | payer MEDICARE, BC ==
[2022-01-08] MEDS ORDERED: Acetaminophen 500 MG Tab PO ONE (01:53)
[2022-01-08] MEDS ORDERED: Potassium Chloride 10 MEQ Tab.ER PO ONE (02:10)
[2022-01-08] MEDS ORDERED: hydrOXYzine HCl 25 MG Tab PO ONE (02:23)
[2022-02-02 15:02] LABS: ANION GAP 15.2 mEq/L (7-13); CHLORIDE,CL 99 mmol/L (98-107); ESTIMATED GFR 45 mL/min (>=60); SODIUM,NA 132 mmol/L (136-145)
== END 2022-01-08 02:35 | disposition home or self-care (01) ==
LOC: DL.ED 23:48
DX: G89.29 Other chronic pain (principal); M54.50 Low back pain, unspecified; R10.32 Left lower quadrant pain; R14.0 Abdominal distension (gaseous); E83.42 Hypomagnesemia; E87.6 Hypokalemia; M06.9 Rheumatoid arthritis, unspecified; I10 Essential (primary) hypertension
CPT/HCPCS: 36415; 74019; 80053; 81001; 82150; 83690; 83735; 85025; 99284; A9270

== ENCOUNTER 2022-05-24 14:38 | Emergency (ER) | payer MEDICARE, BC ==
[2022-05-24 15:40] VITALS: BP 130/68; PULSE 116
[2022-05-24 16:15] LABS: ANION GAP 16.8 mEq/L (7-13); CHLORIDE,CL 107 mmol/L (98-107); SODIUM,NA 139 mmol/L (136-145)
[2022-05-24 16:19] LABS: ESTIMATED GFR 70 mL/min (>=60)
[2022-05-24] MEDS ORDERED: Pantoprazole 40 MG Vial IVPUSH ONE (17:33)
[2022-05-24] MEDS ORDERED: Haloperidol Lactate 5 MG/ML SDV IM ONE (17:39)
[2022-05-24] MEDS ORDERED: Haloperidol Lactate 5 MG/ML SDV IVPUSH ONE (17:46)
[2022-05-24] MEDS ORDERED: Lactated Ringers 1,000 ML IV ONE (18:42)
== END 2022-05-24 19:00 ==
LOC: DL.ED 14:38
DX: K92.2 Gastrointestinal hemorrhage, unspecified (principal); D64.9 Anemia, unspecified; I10 Essential (primary) hypertension; Z72.0 Tobacco use; Z88.1 Allergy status to other antibiotic agents; Z88.8 Allergy status to other drugs, medicaments and biological substances; Z79.899 Other long term (current) drug therapy
CPT/HCPCS: 36415; 74019; 80053; 81001; 82272; 83605; 85025; 86140; 96374; 96375; 99284; 99285-25; C9113; J1630; J7120

== ENCOUNTER 2022-11-12 18:49 | Emergency (ER) | payer MEDICARE, BC ==
[2022-11-12] MEDS: Sodium Chloride 0.9% 1,000 ML IV ONE ×2 (19:05→20:18)
[2022-11-12] MEDS: Sodium Chloride 0.9% 10 ML Syringe FLUSH PRN (19:05)
[2022-11-12 19:12] LABS: BASOPHILS PERCENT AUTO 0.3 % (0.0-1.0); HEMATOCRIT 30.4 % (37.0-47.0); HEMOGLOBIN 9.8 g/dL (12.0-16.0); LYMPHOCYTES PERCENT AUTO 20.9 % (20.5-50.1); MEAN CORPUSCULAR HEMOGLOBIN 30.4 pg (27.0-34.0); MEAN CORPUSCULAR HGB CONC 32.2 g/dL (33.0-35.0); MEAN CORPUSCULAR VOLUME 94.4 fL (80-100); MONOCYTES PERCENT AUTO 6.1 % (2-8); NEUTROPHILS PERCENT AUTO 69.7 % (42.2-75.2); PLATELET COUNT,PLT 476 10^3/uL (150-450); RED BLOOD CELL COUNT 3.22 10^6/uL (4.2-5.4); WHITE BLOOD CELL COUNT,WBC 6.3 10^3/uL (5.0-10.0)
[2022-11-12 19:36] LABS: ALANINE AMINOTRANSFERASE,ALT 31 U/L (14-59); ALBUMIN 3.3 g/dL (3.4-5.0); ALKALINE PHOSPHATASE 271 U/L (46-116); ANION GAP 17.8 mEq/L (7-13); ASPARTATE AMNIOTRANSFERASE,AST 23 U/L (15-37); BILIRUBIN TOTAL 0.2 mg/dL (0.2-1.0); BLOOD UREA NITROGEN,BUN 36 mg/dL (7-18); BUN/CREATININE RATIO 26.5 (No establ ref range); CALCIUM 8.2 mg/dL (8.5-10.1); CARBON DIOXIDE,CO2 17 mmol/L (21-32); CHLORIDE,CL 103 mmol/L (98-107); CREATININE 1.36 mg/dL (0.55-1.02); EST CRCL DRUG DOSING (CG) 26.07 mL/min; GLUCOSE RANDOM 78 mg/dL (70-99); MAGNESIUM 2.2 mg/dL (1.8-2.4); POTASSIUM,K 3.8 mmol/L (3.5-5.1); PROTEIN TOTAL,TP 7.8 g/dL (6.4-8.2); SODIUM,NA 134 mmol/L (136-145)
[2022-11-12 19:38] LABS: INR 0.9 (0.9-1.2); PROTHROMBIN TIME 9.2 SEC (9.0-12.0); PTT,PARTIAL THROMBOPLSTIN TIME 28.2 SEC (22.0-34.0)
[2022-11-12 19:51] LABS: A/G RATIO 0.73; ESTIMATED GFR 41 mL/min (>=60); ETHANOL BLOOD MEDICAL < 3 mg/dL (0)
[2022-11-12] MEDS: fentaNYL 100 MCG/2 ML SDV IVPUSH ONE (20:17)
[2022-11-12 20:31] LABS: APPEARANCE,URINE CLEAR (CLEAR); BILIRUBIN,URINE NEGATIVE (NEGATIVE); COLOR,URINE YELLOW (YELLOW); GLUCOSE,URINE NEGATIVE (NEGATIVE); KETONES,URINE NEGATIVE (NEGATIVE); LEUKOCYTE ESTERASE,URINE NEGATIVE (NEGATIVE); NITRITE,URINE NEGATIVE (NEGATIVE); OCCULT BLOOD,URINE NEGATIVE (NEGATIVE); PH,URINE 6.5 (5.0-9.0); PROTEIN,URINE 100 (NEGATIVE); UROBILINOGEN,URINE 0.2 mg/dL (0.2-1.0)
[2022-11-12 20:33] LABS: AMPHETAMINES,URINE NEGATIVE (NEGATIVE); BARBITURATES,URINE NEGATIVE (NEGATIVE); BENZODIAZEPINE,URINE NEGATIVE (NEGATIVE); MDMA (ECSTASY), URINE NEGATIVE (NEGATIVE); METHADONE,URINE NEGATIVE (NEGATIVE); METHAMPHETAMINES,URINE NEGATIVE (NEGATIVE); OPIATES,URINE NEGATIVE (NEGATIVE); OXYCODONE,URINE NEGATIVE (NEGATIVE); PHENCYCLIDINE,URINE NEGATIVE (NEGATIVE); TCA,URINE POSITIVE (NEGATIVE)
[2022-11-12 20:51] LABS: BACTERIA,URINE FEW /HPF (0-FEW/HPF); EPITHELIAL CELLS,URINE FEW /HPF (NOT SEEN); MUCUS,URINE FEW /LPF (NOT SEEN); RBC,URINE 0-5 /HPF (0-5); WBC,URINE 0-5 /HPF (0-5/HPF)
[2022-11-12 20:54] VITALS: BP 122/53; PULSE 97
== END 2022-11-12 20:50 ==
LOC: DL.ED 18:49
DX: S72.141A Displaced intertrochanteric fracture of right femur, initial encounter for closed fracture (principal); I10 Essential (primary) hypertension; Z88.8 Allergy status to other drugs, medicaments and biological substances; W18.30XA Fall on same level, unspecified, initial encounter
CPT/HCPCS: 36415; 51702; 80053; 80305-QW; 80307; 81001; 83735; 84484; 85025; 85610; 85730; 93005; 93010; 96361; 96374; 99284; 99285-25; J3010; J3490; J7030

== ENCOUNTER 2023-07-17 18:58 | Emergency (ER) | payer MEDICARE, BC ==
[2023-07-17 19:25] VITALS: BP 156/76; PULSE 105
[2023-07-17 19:33] LABS: BASOPHILS PERCENT AUTO 0.2 % (0.0-1.0); EOSINOPHILS PERCENT AUTO 0.9 % (1.0-3.0); HEMATOCRIT 31.6 % (37.0-47.0); LYMPHOCYTES PERCENT AUTO 7.5 % (20.5-50.1); MEAN CORPUSCULAR HEMOGLOBIN 30.2 pg (27.0-34.0); MEAN CORPUSCULAR HGB CONC 31.6 g/dL (33.0-35.0); MEAN CORPUSCULAR VOLUME 95.5 fL (80-100); NEUTROPHILS PERCENT AUTO 87.4 % (42.2-75.2); PLATELET COUNT,PLT 407 10^3/uL (150-450); RED BLOOD CELL COUNT 3.31 10^6/uL (4.2-5.4); WHITE BLOOD CELL COUNT,WBC 11.1 10^3/uL (5.0-10.0)
[2023-07-17] MEDS: Sulfamethoxazole/Trimethoprim 800-160 MG Tab PO ONE (19:34)
[2023-07-17] MEDS: Acetaminophen 500 MG Tab PO ONE (19:45)
[2023-07-17 19:54] LABS: ALBUMIN 3.2 g/dL (3.4-5.0); ANION GAP 17.9 mEq/L (7-13); BILIRUBIN TOTAL 0.3 mg/dL (0.2-1.0); CALCIUM 8.8 mg/dL (8.5-10.1); CREATININE 1.12 mg/dL (0.55-1.02); EST CRCL DRUG DOSING (CG) 27.26 mL/min; POTASSIUM,K 3.9 mmol/L (3.5-5.1)
[2023-07-17 19:55] LABS: A/G RATIO 0.67
[2023-07-17] MEDS ORDERED: Silver Sulfadiazine 1% Crm 50 GM Tube TOP ONE (20:07)
[2023-07-17] MEDS: Silver Sulfadiazine 1% Crm 50 GM Tube TOP ONE (20:14)
== END 2023-07-17 20:33 | disposition home or self-care (01) ==
LOC: DL.ED 18:58
DX: T24.211A Burn of second degree of right thigh, initial encounter (principal); I10 Essential (primary) hypertension; Z88.8 Allergy status to other drugs, medicaments and biological substances; Z79.899 Other long term (current) drug therapy; Z86.19 Personal history of other infectious and parasitic diseases; X10.1XXA Contact with hot food, initial encounter
CPT/HCPCS: 36415; 80053; 85025; 99283; A9270

== ENCOUNTER 2023-07-20 17:53 | Emergency (ER) | payer MEDICARE, BC | END 2023-07-20 18:25 | disposition home or self-care (01) | LOC: DL.ED 17:53 | DX: Z53.21 Procedure and treatment not carried out due to patient leaving prior to being seen by health care provider (principal) ==

== ENCOUNTER 2023-08-07 16:12 | Emergency (ER) | payer MEDICARE, BC ==
[2023-08-07 16:33] VITALS: BP 151/60; PULSE 94
[2023-08-07] MEDS: HYDROmorphone 0.5 MG/0.5 ML Syringe IVPUSH ONE (17:52)
[2023-08-07] MEDS: diphenhydrAMINE 50 MG/ML SDV IVPUSH ONE (17:52)
[2023-08-07] MEDS: Sodium Chloride 0.9% 500 ML IV SCH (17:53)
[2023-08-07] MEDS: Dexamethasone 4 MG/ML SDV IVPUSH ONE (17:53)
[2023-08-07] MEDS: Sodium Chloride 0.9% 10 ML Syringe FLUSH PRN (17:54)
[2023-08-07] MEDS: Famotidine 20 MG/2 ML SDV IVPUSH ONE (17:54)
[2023-08-07] MEDS: Mupirocin Oint 22 GM Tube TOP ONE (18:08)
== END 2023-08-07 19:13 | disposition home or self-care (01) ==
LOC: DL.ED 16:12
DX: L23.3 Allergic contact dermatitis due to drugs in contact with skin (principal); I10 Essential (primary) hypertension; F17.210 Nicotine dependence, cigarettes, uncomplicated; Z79.899 Other long term (current) drug therapy; Z79.891 Long term (current) use of opiate analgesic
CPT/HCPCS: 96374; 96375; 99283; 99284; A9270; J1100; J1170; J1200; J3490; J7040

== ENCOUNTER 2023-12-30 18:29 | Emergency (ER) | payer MEDICARE, BC ==
[2023-12-30 18:53] VITALS: BP 173/72; PULSE 101
[2023-12-30] MEDS ORDERED: Sodium Chloride 0.9% 10 ML Syringe FLUSH PRN (18:55)
[2023-12-30] MEDS: Acetaminophen 500 MG Tab PO ONE (19:00)
[2023-12-30] MEDS: Ketorolac 30 MG/ML SDV IVPUSH ONE (19:00)
[2023-12-30 19:25] LABS: BASOPHILS PERCENT AUTO 0.2 % (0.0-1.0); EOSINOPHILS PERCENT AUTO 3.6 % (1.0-3.0); HEMOGLOBIN 9.9 g/dL (12.0-16.0); MEAN CORPUSCULAR HEMOGLOBIN 30.1 pg (27.0-34.0); MEAN CORPUSCULAR HGB CONC 31.9 g/dL (33.0-35.0); MEAN CORPUSCULAR VOLUME 94.2 fL (80-100); MONOCYTES PERCENT AUTO 5.1 % (2-8); NEUTROPHILS PERCENT AUTO 77.1 % (42.2-75.2); PLATELET COUNT,PLT 438 10^3/uL (150-450); RED BLOOD CELL COUNT 3.29 10^6/uL (4.2-5.4); WHITE BLOOD CELL COUNT,WBC 6.1 10^3/uL (5.0-10.0)
[2023-12-30 19:45] LABS: APPEARANCE,URINE CLEAR (CLEAR); BILIRUBIN,URINE NEGATIVE (NEGATIVE); COLOR,URINE YELLOW (YELLOW); GLUCOSE,URINE NEGATIVE (NEGATIVE); KETONES,URINE NEGATIVE (NEGATIVE); LEUKOCYTE ESTERASE,URINE NEGATIVE (NEGATIVE); NITRITE,URINE NEGATIVE (NEGATIVE); OCCULT BLOOD,URINE NEGATIVE (NEGATIVE); PH,URINE 6.5 (5.0-9.0); PROTEIN,URINE 30 (NEGATIVE); UROBILINOGEN,URINE 0.2 mg/dL (0.2-1.0)
[2023-12-30 19:46] LABS: ALBUMIN 3.3 g/dL (3.4-5.0); ANION GAP 17.6 mEq/L (7-13); BILIRUBIN TOTAL 0.3 mg/dL (0.2-1.0); BUN/CREATININE RATIO 33.7 (No establ ref range); C-REACTIVE PROTEIN 0.82 ng/dL (<=0.50); CALCIUM 8.8 mg/dL (8.5-10.1); CREATININE 1.01 mg/dL (0.55-1.02); EST CRCL DRUG DOSING (CG) 29.09 mL/min; POTASSIUM,K 4.6 mmol/L (3.5-5.1); PROTEIN TOTAL,TP 7.8 g/dL (6.4-8.2)
[2023-12-30 19:47] LABS: A/G RATIO 0.73
[2023-12-30 19:50] LABS: LACTIC ACID 1.5 mmol/L (0.4-2.0)
[2023-12-30 19:56] LABS: BACTERIA,URINE FEW /HPF (0-FEW/HPF); EPITHELIAL CELLS,URINE FEW /HPF (NOT SEEN); RBC,URINE NOT SEEN /HPF (0-5); WBC,URINE 0-5 /HPF (0-5/HPF)
[2023-12-30] MEDS: Sodium Chloride 0.9% 1,000 ML IV ONE (19:58)
== END 2023-12-30 20:33 | disposition home or self-care (01) ==
LOC: DL.ED 18:29
DX: E86.0 Dehydration (principal); I10 Essential (primary) hypertension; F17.210 Nicotine dependence, cigarettes, uncomplicated; Z79.899 Other long term (current) drug therapy; Z88.5 Allergy status to narcotic agent; Z88.1 Allergy status to other antibiotic agents; Z88.8 Allergy status to other drugs, medicaments and biological substances
CPT/HCPCS: 36415; 80053; 81001; 83605; 83690; 83735; 85025; 86140; 96361; 96374; 99283; 99284-25; A9270-GY; J1885; J7030

== ENCOUNTER 2024-01-06 22:31 | Emergency (ER) | payer MEDICARE, BC ==
[2024-01-06] MEDS: Iopamidol 612 MG/ML 100 ML Bottle IVPUSH ONE (22:51)
[2024-01-06] MEDS: Famotidine 20 MG/2 ML SDV IVPUSH ONE (23:15)
[2024-01-06 23:16] LABS: BASOPHILS PERCENT AUTO 0.6 % (0.0-1.0); HEMATOCRIT 33.8 % (37.0-47.0); HEMOGLOBIN 10.6 g/dL (12.0-16.0); LYMPHOCYTES PERCENT AUTO 19.5 % (20.5-50.1); MEAN CORPUSCULAR HEMOGLOBIN 29.9 pg (27.0-34.0); MEAN CORPUSCULAR HGB CONC 31.4 g/dL (33.0-35.0); MEAN CORPUSCULAR VOLUME 95.5 fL (80-100); MONOCYTES PERCENT AUTO 5.5 % (2-8); NEUTROPHILS PERCENT AUTO 72.4 % (42.2-75.2); PLATELET COUNT,PLT 414 10^3/uL (150-450); RED BLOOD CELL COUNT 3.54 10^6/uL (4.2-5.4); WHITE BLOOD CELL COUNT,WBC 6.4 10^3/uL (5.0-10.0)
[2024-01-06 23:40] VITALS: BP 152/73; PULSE 99
[2024-01-06 23:41] LABS: ALBUMIN 3.3 g/dL (3.4-5.0); BILIRUBIN TOTAL 0.2 mg/dL (0.2-1.0); CALCIUM 8.9 mg/dL (8.5-10.1); CREATININE 1.26 mg/dL (0.55-1.02); EST CRCL DRUG DOSING (CG) 22.38 mL/min; PROTEIN TOTAL,TP 7.6 g/dL (6.4-8.2)
[2024-01-06 23:42] LABS: A/G RATIO 0.77
[2024-01-06] MEDS: Sodium Chloride 0.9% 1,000 ML IV ONE (23:58)
[2024-01-07] MEDS: Aspirin 81 MG Tab.Chew PO ONE (00:49)
[2024-01-07] MEDS: Sodium Chloride 0.9% 1,000 ML IV ONE (00:50)
[2024-01-07] MEDS: GI Cocktail Oral Solution 30 ML PO ONE (00:53)
[2024-01-07 01:52] LABS: BILIRUBIN,URINE NEGATIVE (NEGATIVE); COLOR,URINE YELLOW (YELLOW); GLUCOSE,URINE NEGATIVE (NEGATIVE); KETONES,URINE NEGATIVE (NEGATIVE); LEUKOCYTE ESTERASE,URINE NEGATIVE (NEGATIVE); NITRITE,URINE NEGATIVE (NEGATIVE); OCCULT BLOOD,URINE NEGATIVE (NEGATIVE); PH,URINE 6.5 (5.0-9.0); PROTEIN,URINE TRACE (NEGATIVE); UROBILINOGEN,URINE 0.2 mg/dL (0.2-1.0)
[2024-01-07 01:53] LABS: APPEARANCE,URINE SLIGHTLY CLOUDY (CLEAR)
[2024-01-07 02:02] LABS: BACTERIA,URINE FEW /HPF (0-FEW/HPF); EPITHELIAL CELLS,URINE MODERATE /HPF (NOT SEEN); MUCUS,URINE FEW /LPF (NOT SEEN); RBC,URINE 0-5 /HPF (0-5)
== END 2024-01-07 02:08 | disposition home or self-care (01) ==
LOC: DL.ED 22:31
DX: K52.9 Noninfective gastroenteritis and colitis, unspecified (principal); N17.9 Acute kidney failure, unspecified; E86.0 Dehydration; R79.89 Other specified abnormal findings of blood chemistry; I10 Essential (primary) hypertension; F17.200 Nicotine dependence, unspecified, uncomplicated; Z79.899 Other long term (current) drug therapy; Z88.1 Allergy status to other antibiotic agents; Z88.5 Allergy status to narcotic agent; Z88.8 Allergy status to other drugs, medicaments and biological substances
CPT/HCPCS: 36415; 74177; 80053; 81001; 83690; 83735; 84484; 85025; 93005; 93010; 96361; 96374; 99284; 99284-25; A9270-GY; J3490; J7030; Q9967

== ENCOUNTER 2024-02-23 11:46 | Emergency (ER) | payer MEDICARE, BC ==
[2024-02-23 12:10] VITALS: BP 159/75; PULSE 86
[2024-02-23] MEDS ORDERED: Sodium Chloride 0.9% 10 ML Syringe FLUSH PRN (12:11)
[2024-02-23 12:29] LABS: BASOPHILS PERCENT AUTO 0.6 % (0.0-1.0); EOSINOPHILS PERCENT AUTO 5.3 % (1.0-3.0); HEMATOCRIT 32.9 % (37.0-47.0); HEMOGLOBIN 10.8 g/dL (12.0-16.0); LYMPHOCYTES PERCENT AUTO 17.3 % (20.5-50.1); MEAN CORPUSCULAR HGB CONC 32.8 g/dL (33.0-35.0); MEAN CORPUSCULAR VOLUME 91.4 fL (80-100); MONOCYTES PERCENT AUTO 3.7 % (2-8); NEUTROPHILS PERCENT AUTO 73.1 % (42.2-75.2); PLATELET COUNT,PLT 485 10^3/uL (150-450); WHITE BLOOD CELL COUNT,WBC 6.3 10^3/uL (5.0-10.0)
[2024-02-23] MEDS: Sodium Chloride 0.9% 1,000 ML IV ONE (12:34)
[2024-02-23] MEDS: Ketorolac 30 MG/ML SDV IVPUSH ONE (12:34)
[2024-02-23 12:48] LABS: A/G RATIO 0.7; ALBUMIN 3.7 g/dL (3.4-5.0); ANION GAP 16.9 mEq/L (7-13); BILIRUBIN TOTAL 0.3 mg/dL (0.2-1.0); BUN/CREATININE RATIO 24.4 (No establ ref range); CALCIUM 8.6 mg/dL (8.5-10.1); CREATININE 0.86 mg/dL (0.55-1.02); EST CRCL DRUG DOSING (CG) 36.18 mL/min; POTASSIUM,K 3.9 mmol/L (3.5-5.1); PROTEIN TOTAL,TP 8.8 g/dL (6.4-8.2)
[2024-02-23 12:53] LABS: APPEARANCE,URINE CLEAR (CLEAR); BILIRUBIN,URINE NEGATIVE (NEGATIVE); COLOR,URINE YELLOW (YELLOW); GLUCOSE,URINE NEGATIVE (NEGATIVE); KETONES,URINE NEGATIVE (NEGATIVE); LEUKOCYTE ESTERASE,URINE NEGATIVE (NEGATIVE); NITRITE,URINE NEGATIVE (NEGATIVE); OCCULT BLOOD,URINE TRACE-INTACT (NEGATIVE); PROTEIN,URINE 100 (NEGATIVE); UROBILINOGEN,URINE 0.2 mg/dL (0.2-1.0)
[2024-02-23 13:05] LABS: AMORPHOUS SEDIMENT,URINE MODERATE /HPF (NOT SEEN); BACTERIA,URINE MODERATE /HPF (0-FEW/HPF); EPITHELIAL CELLS,URINE MODERATE /HPF (NOT SEEN); MUCUS,URINE MODERATE /LPF (NOT SEEN); RBC,URINE 0-5 /HPF (0-5); WBC,URINE 0-5 /HPF (0-5/HPF); YEAST,URINE FEW /HPF (NOT SEEN)
== END 2024-02-23 13:24 | disposition home or self-care (01) ==
LOC: DL.ED 11:46
DX: E87.1 Hypo-osmolality and hyponatremia (principal); E86.0 Dehydration; I10 Essential (primary) hypertension; K21.9 Gastro-esophageal reflux disease without esophagitis; Z88.8 Allergy status to other drugs, medicaments and biological substances; Z88.5 Allergy status to narcotic agent; Z88.1 Allergy status to other antibiotic agents; Z79.899 Other long term (current) drug therapy
CPT/HCPCS: 36415; 80053; 81001; 83735; 85025; 96361; 96374; 99284; J1885; J7030

== ENCOUNTER 2024-03-09 15:05 | Emergency (ER) | payer MEDICARE, BC ==
[2024-03-09] MEDS: Iopamidol 612 MG/ML 100 ML Bottle IVPUSH ONE (15:11)
[2024-03-09] MEDS: 50% Dextrose in Water 50 ML Syringe ONE (15:23)
[2024-03-09] MEDS: 50% Dextrose in Water 50 ML Syringe IVPUSH ONE (15:23)
[2024-03-09 15:25] LABS: BASOPHILS PERCENT AUTO 0.1 % (0.0-1.0); EOSINOPHILS PERCENT AUTO 0.4 % (1.0-3.0); HEMATOCRIT 37.1 % (37.0-47.0); HEMOGLOBIN 11.6 g/dL (12.0-16.0); LYMPHOCYTES PERCENT AUTO 11.9 % (20.5-50.1); MEAN CORPUSCULAR HEMOGLOBIN 29.4 pg (27.0-34.0); MEAN CORPUSCULAR HGB CONC 31.3 g/dL (33.0-35.0); MEAN CORPUSCULAR VOLUME 93.9 fL (80-100); MONOCYTES PERCENT AUTO 4.3 % (2-8); NEUTROPHILS PERCENT AUTO 83.3 % (42.2-75.2); PLATELET COUNT,PLT 402 10^3/uL (150-450); RED BLOOD CELL COUNT 3.95 10^6/uL (4.2-5.4); WHITE BLOOD CELL COUNT,WBC 8.1 10^3/uL (5.0-10.0)
[2024-03-09] MEDS: Albuterol/Ipratropium 3.0-0.5 MG/3 ML Neb Soln NEB ONE (15:43)
[2024-03-09] MEDS: Famotidine 20 MG/2 ML SDV IVPUSH ONE (15:43)
[2024-03-09] MEDS: methylPREDNISolone Sodium Succinate 125 MG/2 ML SDV IVPUSH ONE (15:43)
[2024-03-09] MEDS: Ondansetron 4 MG/2 ML SDV IVPUSH ONE (15:43)
[2024-03-09 15:49] LABS: ALANINE AMINOTRANSFERASE,ALT 26 U/L (14-59); ALBUMIN 3.1 g/dL (3.4-5.0); ALKALINE PHOSPHATASE 269 U/L (46-116); ANION GAP 19.2 mEq/L (7-13); ASPARTATE AMNIOTRANSFERASE,AST 22 U/L (15-37); BILIRUBIN TOTAL 0.3 mg/dL (0.2-1.0); BLOOD UREA NITROGEN,BUN 36 mg/dL (7-18); BUN/CREATININE RATIO 35.3 (No establ ref range); CALCIUM 8.5 mg/dL (8.5-10.1); CARBON DIOXIDE,CO2 18 mmol/L (21-32); CHLORIDE,CL 108 mmol/L (98-107); CREATININE 1.02 mg/dL (0.55-1.02); GLUCOSE RANDOM 107 mg/dL (70-99); MAGNESIUM 2.2 mg/dL (1.8-2.4); POTASSIUM,K 4.2 mmol/L (3.5-5.1); PROTEIN TOTAL,TP 7.9 g/dL (6.4-8.2); SODIUM,NA 141 mmol/L (136-145)
[2024-03-09 15:51] LABS: A/G RATIO 0.65; ESTIMATED GFR 57 mL/min (>=60)
[2024-03-09 15:52] LABS: ETHANOL BLOOD MEDICAL < 3 mg/dL (0)
[2024-03-09 16:29] LABS: INR 0.9 (0.9-1.2); PROTHROMBIN TIME 9.3 SEC (9.0-12.0)
[2024-03-09 16:43] LABS: APPEARANCE,URINE SLIGHTLY CLOUDY (CLEAR); BILIRUBIN,URINE NEGATIVE (NEGATIVE); COLOR,URINE YELLOW (YELLOW); GLUCOSE,URINE 100 (NEGATIVE); KETONES,URINE NEGATIVE (NEGATIVE); LEUKOCYTE ESTERASE,URINE NEGATIVE (NEGATIVE); NITRITE,URINE NEGATIVE (NEGATIVE); OCCULT BLOOD,URINE TRACE-INTACT (NEGATIVE); PROTEIN,URINE 100 (NEGATIVE); UROBILINOGEN,URINE 0.2 mg/dL (0.2-1.0)
[2024-03-09 16:47] LABS: AMPHETAMINES,URINE NEGATIVE (NEGATIVE); BARBITURATES,URINE NEGATIVE (NEGATIVE); BENZODIAZEPINE,URINE NEGATIVE (NEGATIVE); MDMA (ECSTASY), URINE NEGATIVE (NEGATIVE); METHADONE,URINE NEGATIVE (NEGATIVE); METHAMPHETAMINES,URINE NEGATIVE (NEGATIVE); OPIATES,URINE NEGATIVE (NEGATIVE); OXYCODONE,URINE POSITIVE (NEGATIVE); PHENCYCLIDINE,URINE NEGATIVE (NEGATIVE); TCA,URINE NEGATIVE (NEGATIVE)
[2024-03-09 16:56] LABS: BACTERIA,URINE FEW /HPF (0-FEW/HPF); EPITHELIAL CELLS,URINE MANY /HPF (NOT SEEN); WBC,URINE 0-5 /HPF (0-5/HPF)
[2024-03-09] MEDS: Dextrose 5%-0.9% NaCl 1,000 ML IV SCH (17:10)
[2024-03-09] MEDS: Oseltamivir 75 MG Cap PO ONE (17:24)
[2024-03-09] MEDS: Aspirin 81 MG Tab.Chew PO ONE (17:51)
[2024-03-09] MEDS ORDERED: Heparin Sodium/0.45% NaCl 25,000 UNITS/500 ML BAG IV SCH (18:00)
[2024-03-09] MEDS: Pantoprazole 40 MG Vial IVPUSH ONE (18:01)
[2024-03-09 19:22] VITALS: BP 148/51; PULSE 78
== END 2024-03-09 19:30 ==
LOC: DL.ED 15:05
DX: J10.1 Influenza due to other identified influenza virus with other respiratory manifestations (principal); R09.02 Hypoxemia; R41.82 Altered mental status, unspecified; R94.31 Abnormal electrocardiogram [ECG] [EKG]; J44.1 Chronic obstructive pulmonary disease with (acute) exacerbation; E16.2 Hypoglycemia, unspecified; E86.0 Dehydration; I10 Essential (primary) hypertension; F17.200 Nicotine dependence, unspecified, uncomplicated; Z88.8 Allergy status to other drugs, medicaments and biological substances; Z79.899 Other long term (current) drug therapy
CPT/HCPCS: 36415; 51702; 70450; 71045; 74177; 80053; 80305; 80307; 81001; 82140; 82947; 83690; 83735; 84484; 85025; 85610; 87428; 93010; 96361; 96374; 96375; 99285; A9270; J2405; J2470; J2919; J3490; J7042; Q9967; J7620-GY

== ENCOUNTER 2024-05-27 14:59 | Emergency (ER) | payer MEDICARE, BC ==
[2024-05-27] MEDS ORDERED: Sodium Chloride 0.9% 10 ML Syringe FLUSH PRN (15:20)
[2024-05-27 15:30] VITALS: BP 120/52; PULSE 98
[2024-05-27 15:38] LABS: BASOPHILS PERCENT AUTO 0.5 % (0.0-1.0); EOSINOPHILS PERCENT AUTO 3.1 % (1.0-3.0); HEMATOCRIT 33.2 % (37.0-47.0); HEMOGLOBIN 10.7 g/dL (12.0-16.0); MEAN CORPUSCULAR HEMOGLOBIN 30.9 pg (27.0-34.0); MEAN CORPUSCULAR HGB CONC 32.2 g/dL (33.0-35.0); MONOCYTES PERCENT AUTO 7.1 % (2-8); NEUTROPHILS PERCENT AUTO 69.3 % (42.2-75.2); PLATELET COUNT,PLT 376 10^3/uL (150-450); RED BLOOD CELL COUNT 3.46 10^6/uL (4.2-5.4); WHITE BLOOD CELL COUNT,WBC 6.4 10^3/uL (5.0-10.0)
[2024-05-27] MEDS: Ketorolac 30 MG/ML SDV IVPUSH ONE (15:40)
[2024-05-27] MEDS: Ondansetron 4 MG/2 ML SDV IVPUSH ONE (15:40)
[2024-05-27 15:59] LABS: ALANINE AMINOTRANSFERASE,ALT 56 U/L (14-59); ALBUMIN 2.9 g/dL (3.4-5.0); ALKALINE PHOSPHATASE 437 U/L (46-116); ANION GAP 15.7 mEq/L (7-13); ASPARTATE AMNIOTRANSFERASE,AST 59 U/L (15-37); BILIRUBIN TOTAL 0.2 mg/dL (0.2-1.0); BLOOD UREA NITROGEN,BUN 33 mg/dL (7-18); C-REACTIVE PROTEIN 0.62 ng/dL (<=0.50); CALCIUM 8.7 mg/dL (8.5-10.1); CARBON DIOXIDE,CO2 24 mmol/L (21-32); CHLORIDE,CL 98 mmol/L (98-107); CREATININE 0.97 mg/dL (0.55-1.02); GLUCOSE RANDOM 101 mg/dL (70-99); MAGNESIUM 2.7 mg/dL (1.8-2.4); POTASSIUM,K 4.7 mmol/L (3.5-5.1); PROTEIN TOTAL,TP 7.4 g/dL (6.4-8.2); SODIUM,NA 133 mmol/L (136-145)
[2024-05-27 16:02] LABS: LACTIC ACID 1.7 mmol/L (0.4-2.0)
[2024-05-27 16:03] LABS: A/G RATIO 0.64; ESTIMATED GFR 61 mL/min (>=60)
== END 2024-05-27 16:30 | disposition home or self-care (01) ==
LOC: DL.ED 14:59
DX: R14.0 Abdominal distension (gaseous) (principal); I10 Essential (primary) hypertension; K21.9 Gastro-esophageal reflux disease without esophagitis; M19.90 Unspecified osteoarthritis, unspecified site; Z79.899 Other long term (current) drug therapy; Z79.891 Long term (current) use of opiate analgesic; Z79.1 Long term (current) use of non-steroidal anti-inflammatories (NSAID); Z88.6 Allergy status to analgesic agent; Z88.8 Allergy status to other drugs, medicaments and biological substances; Z88.1 Allergy status to other antibiotic agents
CPT/HCPCS: 36415; 80053; 83605; 83735; 85025; 86140; 96374; 96375; 99284; J1885; J2405; 99283

== ENCOUNTER 2024-11-23 20:40 | Emergency (ER) | payer MEDICARE, BC ==
[2024-11-23] MEDS: Iopamidol 612 MG/ML 100 ML Bottle IVPUSH ONE (21:12)
[2024-11-23] MEDS: Ondansetron 4 MG/2 ML SDV IVPUSH ONE (21:40)
[2024-11-23 21:50] LABS: RED BLOOD CELL COUNT 3.45 10^6/uL (4.2-5.4); WHITE BLOOD CELL COUNT,WBC 6.7 10^3/uL (5.0-10.0)
[2024-11-23 21:51] LABS: BASOPHILS PERCENT AUTO 0.3 % (0.0-1.0); EOSINOPHILS PERCENT AUTO 6.7 % (1.0-3.0); LYMPHOCYTES PERCENT AUTO 16.0 % (20.5-50.1); MONOCYTES PERCENT AUTO 4.8 % (2-8); NEUTROPHILS PERCENT AUTO 72.2 % (42.2-75.2); PLATELET COUNT,PLT 333 10^3/uL (150-450)
[2024-11-23 21:58] LABS: LACTIC ACID 1.4 mmol/L (0.4-2.0)
[2024-11-23 22:04] LABS: A/G RATIO 0.8; ALANINE AMINOTRANSFERASE,ALT 53.0 U/L (14-59); ASPARTATE AMNIOTRANSFERASE,AST 81.0 U/L (15-37); BILIRUBIN TOTAL 0.3 mg/dL (0.2-1.0); BLOOD UREA NITROGEN,BUN 22.0 mg/dL (7-18); CARBON DIOXIDE,CO2 17.0 mmol/L (21-32); CHLORIDE,CL 100.0 mmol/L (98-107); CREATININE 0.9 mg/dL (0.55-1.02); EST CRCL DRUG DOSING (CG) 29.32 mL/min; GLUCOSE RANDOM 100.0 mg/dL (70-99); POTASSIUM,K 4.1 mmol/L (3.5-5.1); PROTEIN TOTAL,TP 8.1 g/dL (6.4-8.2); SODIUM,NA 132.0 mmol/L (136-145)
[2024-11-23 22:05] LABS: ESTIMATED GFR 66.0 mL/min (>=60)
[2024-11-24 01:39] LABS: GLUCOSE,URINE NEGATIVE (NEGATIVE); OCCULT BLOOD,URINE NEGATIVE (NEGATIVE)
[2024-11-24 01:41] LABS: APPEARANCE,URINE CLEAR (CLEAR)
[2024-11-24 02:28] VITALS: BP 126/70; PULSE 78
== END 2024-11-24 02:24 ==
LOC: DL.ED 20:40
DX: K21.9 Gastro-esophageal reflux disease without esophagitis (principal); K56.7 Ileus, unspecified; I10 Essential (primary) hypertension; Z88.8 Allergy status to other drugs, medicaments and biological substances; Z79.899 Other long term (current) drug therapy
CPT/HCPCS: 36415; 74177; 80053; 81003; 83605; 83690; 83735; 84484; 85025; 93005; 93010; 96361; 96374; 96375; 96376; 99284; 99285; J2270; J2405; J7030; Q9967